=== PATIENT | female | born 1935 | race Caucasian/White ===

== ENCOUNTER 2019-02-15 13:32 | Emergency (ER) | payer MEDICARE ==
--- OUTSIDE RECORDS SUMMARY | 2019-02-15 13:48 | XMS REPORT | Continuity of Care Document ---
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 Medicine Problems Active Problems Provider Date Acquired trigger finger Onset: 04/06/2003 Fracture of femur Onset: Diabetes mellitus Onset: Chronic obstructive lung disease Onset: Hypoxia Onset: Hypertensive disorder Onset: Hyperlipidemia Onset: Urinary tract infectious disease Onset: Closed fracture of shaft of femur Garcia Way MD, FACS Onset: 2014 Other Aftercare Involving Internal Garcia Way MD, FACS Onset: 2014 Fixation Device Anemia Letty Blair DO Onset: 10/29/2018 Malignant neoplasm of lower lobe, 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 Onset: 08/15/2015 infection Urge incontinence of urine Brandie Augustin M.D. Onset: 08/15/2015 Erythematous condition Brandie Augustin M.D. Onset: 06/29/2015 Social History Type Date Description Comments Sex Unknown Tobacco Use Start: Unknown End: Quit 1989 Unknown ETOH Use Rarely consumes alcohol Recreational Drug Use Denies Drug Use Tobacco Use Start: Unknown End: Patient is a former smoker Unknown Smoking Status Reviewed: 01/14/19 Patient is a former smoker Enjoy Exercising Does not enjoy exercising Exercise Type/Frequency Does not exercise Tattoo/Piercing Pierced ears Smoke Alarms Yes Allergies, Adverse Reactions, Alerts Active Allergies Reaction Severity Comments Date Tape rash, itching 10/12/2009 Oxycodone 04/04/2014 Nitrofurantoin 05/18/2015 Metolazone itching 01/30/2017 Percocet 03/24/2018 Inactive Allergies NKDA 08/01/2009 Medications Active Medications SIG Qnty Indications Ordering Date Provider Metolazone take 1 tab (30 30tabs R60.0 Chelita Art, 01/14/2019 2.5mg minutes before MD Tablets torsemide) prn edema or weight gain >2-3 lbs Mucinex Twice a day as 60tabs J44.9 Frederick Rossi, 2018 600mg Tablets needed for cough. ER 12HR Flovent Diskus inhale one puff by 3months Frederick Rossi, 04/01/2018 mouth twice a day 100mcg/Blist Aerosol (rinse mouth after use) Acapella please provide 1 1units J44.9 Frederick Rossi, 03/24/2018 Misc device. diagnosis: copd use three times a day as needed to clear secretions. Take 10 breaths each time. Proair HFA 2 inhalations every 25.5gm Frederick Rossi, 03/01/2017 4 hours as needed 108(90Base) mcg/Act for shortness of Aerosol breath. Unifine Pentips Ruben Use To Inject 4units Thao Monson, 02/18/2017 6mm 100'S 31G 1/4 Insulin Four Times A M.D. 31G Day 04/18 Oxygen Please increase to 6 Frederick Rossi, 01/28/2017 L/min continuous. MD Neo Richard take one puff once 3month J44.9 Frederick Rossi, 10/31/2016 daily. 62.5-25mcg/Inh Aerosol Lancets Freestyle Test Finger Stick 4units Thao Monson, 04/23/2016 100'S 28G Four Times A Day M.D. 28G Freestyle Lite Test test blood sugar 4x 600units Rickie Abarca 04/05/2016 a day E., DO Strips Pravastatin Sodium 1/2 by mouth at 90tabs E78.2 Thao Monson, 03/21/2016 bedtime M.D. 10mg Tablets Pen [place] use to inject 400units Thao Monson, 01/30/2016 31G X 6 insulin 4x/day M.D. mm Misc Lancets Ultra Fine Test fs 4x/day 400units Thao Monson, 03/08/2015 M.D. Misc [facility] High Potency Once Daily Unknown 04/08/2014 Vitamin D 1000Unit Tablets Torsemide 2 po daily LeLisa 20mg Galina, CANE WEIGHER Tablets Sertraline HCL 1 po daily Le, Lisa 25mg Galina, CANE WEIGHER Tablets Klor-Con M20 1 po bid KapSen etienne, 20Meq MD Tablets ER Cephalexin 1 po daily Unknown 250mg Capsules Myrbetriq 1 by mouth every day Unknown 50mg Tablets ER 24HR Lantus Solostar 60 units in am and Unknown sliding scale 100Unit/ML Solution Pen-Inject Tanzeum sliding scale Unknown 30mg Pen Advil 2 tabs po at bedtime Unknown 200mg Tablets prn. Estrace insert one-half Unknown 0.1mg/GM applicatorful Cream vaginally once to twice per week as needed Trospium Chloride take one tablet by Unknown mouth twice a day 20mg Tablets Probiotic 1 capsule po daily Unknown Capsules Novolog Flexpen 16 units three times Unknown a day before meals. 100Unit/ML Solution per FS if FS low Pen-Inject takes 12u Aspir-Low 1 by mouth every day Unknown 81mg Tablets DR Fish Oil 1 po qday Unknown Capsules Multivitamins 1 po qd Unknown Tablets Cranberry Juice 2 tabs twice a day Unknown Extract 1000mg Capsules History Medications Metolazone Take 1 Tablet 30 90tabs R60.0 Tate Reynoso 11/03/2018 - 5mg Minutes Before M.[place], FACC 01/14/2019 Tablets Torsemide Dose Every Other Day Medications Administered in Office Medication SIG Qnty Indications Ordering Provider Date Vitamin B12 Injection 1000 Letty Blair DO 11/13/2017 mcg/Ml Injection Theraputic Or Diagnostic Letty Blair, DO 11/13/2017 Injection Injection Depo-Medrol 20mg Annemarie Plasencia [facility] 01/29/2013 Injection Immunizations Description No Information Available Vital Signs Date Vital Result Comment 01/14/2019 8:12am BP Systolic Sitting Left Arm 111 mmHg BP Diastolic Sitting Left Arm 56 mmHg Heart Rate 99 /min Respiratory Rate 16 /min Height 62 inches 5'2" Weight 210.00 lb BMI (Body Mass Index) 38.4 kg/m2 BSA (Body Surface Area) 1.95 m2 [place] body weight in kilograms 50 kg O2 % BldC Oximetry 96 % nc/4l 12/23/2018 9:12am BP Systolic 118 mmHg BP Diastolic 55 mmHg Body Temperature 98.3 F Heart Rate 107 /min Respiratory Rate 20 /min Weight 219.38 lb O2 % BldC Oximetry 91 % Pain Level 0 Results Test Date Facility Test Result H/L Range Note CBC 12/12/2018 [facility] White Blood 8.2 K/uL Normal 3.1-10.7 1 W/Automated [address] Count Diff [place], [place] [id number] [phone] Red Blood Count 3.43 M/uL Low 3.90-5.40 Hemoglobin 9.3 gm/dL Low 11.6-15.8 Hematocrit 30.3 % Low 36.0-46.1 Mean Cell Volume 88.3 fl Normal 80.9-99.0 Mean Corpuscular HGB 27.1 pg Normal 25.9-32.7 Mean Corpuscular HGB Conc 30.7 g/dL Low 30.8-34.3 Platelet Count 140 K/uL Low 155-360 Red Cell Distri Width SD 60.5 fl High 36-47 Red Cell Distri Width %CV 18.6 % High 11.7-14.4 Mean Platelet Volume 12.0 fl Normal 8.9-12.4 Neut% 70.3 % Normal 40.4-72.8 Lymph % 14.7 % Low 20.0-42.0 [place] % 6.5 % Normal 4.3-13.2 Eo% 7.1 % High 0.0-6.6 Bas% 0.4 % Normal 0.0-1.1 Immature Grans 1.0 % Normal 0.0-5.0 NRBC % 0.0 /100WBC < 10/ 100 WBC Neut# 5.74 K/uL Normal 1.8-7.0 Lymph # 1.20 K/uL Normal 1.0-4.0 [place] # 0.53 K/uL Normal 0.3-0.9 Eos # 0.58 K/uL High 0.0-0.5 Baso # 0.03 K/uL Normal 0.0-0.1 Immature Grans Absolute 0.08 K/uL NRBC # 0.00 K/uL Comprehensive Metabolic 12/12/2018 [facility] Glucose 150 mg/dL High 74-106 Panel [address] [place] [address] [phone] BUN 52 mg/dL High 7-18 Creatinine 1.6 mg/dL High 0.6-1.3 Glom Filtration Rate, Estimate 33 mL/min >60 If 40 mL/min >60 2 BUN/Creat 32.5 ratio Sodium 137 mmol/L Normal 136-145 Potassium 3.3 mmol/L Low 3.5-5.1 Chloride 99 mmol/L Normal 98-107 Carbon Dioxide 34 mmol/L High 21-32 Anion Gap 4 mEq/L Low 8-16 Calcium 9.4 mg/dL Normal 8.5-10.1 Total Protein 7.9 g/dL Normal 6.4-8.2 Albumin 3.0 g/dL Low 3.4-5.0 Globulin 4.9 g/dL High 1.9-4.3 Alb/Glob 0.6 ratio Bilirubin,Total 0.4 mg/dL Normal 0.2-1.0 Sgot/Ast 27 U/L Normal 15-37 SGPT/Alt 24 U/L Normal 12-78 Alkaline Phosphatase 123 U/L High 45-117 Iron-Tibc-%Sat 12/12/2018 [facility] Serum Iron 55 g/dL Normal 50-170 [address] [place] [address] [phone] Total Iron Binding Capacity 357 g/dL Normal 250-450 Transferrin %Saturation 15 % Normal 12-57 Laboratory test 12/12/2018 [facility] Ferritin 142 ng/mL Normal 8-252 finding [address] [place] [address] [phone] Vitamin B12 And 12/12/2018 [facility] Vitamin B12 574 pg/mL Normal 193-986 Folate [address] [place] [address] [phone] Folic Acid > 20.0 ng/mL High 3.1-17.5 Laboratory test 12/12/2018 [facility] Slide Review (SEE NOTE) 3 finding [address] [place] [address] [phone] Reticulocyte 10/29/2018 [facility] Retic 30.3 pg Normal 27.9 4 Count,Automated [address] [facility] Hemoglobin -37. [place] [address] 0 [phone] Retic % 4.7 % High 0.5-1.8 Absolute Retic 170 K/uL High 24-84 Immature Retic Fraction 29.9 % High 2.9-15.5 Laboratory test 10/29/2018 [facility] Vitamin 47.1 30.0-100.0 5 finding [address] [facility] D,25-Hydroxy ng/[place] [address] [phone] LDH 245 U/L Normal 84-246 Sedimentation Rate 67 mm/hr High 2-55 6 Vitamin B12 And 10/29/2018 [facility] Vitamin B12 714 pg/mL Normal 193-986 Folate [address] [place] [address] [phone] Folic Acid > 20.0 ng/mL High 3.1-17.5 Immunoglobulins 10/29/2018 [facility] Immunoglobulin [phone] A/G/M, QN, Ser [address] [facility] G,Quant,Serum mg/dL [place], [place] [id number] [phone] Immunoglobulin A 312 mg/dL 64-422 Immunoglobulin M 35 mg/dL 26-217 7 Laboratory test 10/29/2018 [facility] Ferritin 59 ng/mL Normal 8-252 finding [address] [place] [address] [phone] Iron-Tibc-%Sat 10/29/2018 [facility] Serum Iron 44 g/dL Low 50-170 [address] [place] [address] [phone] Total Iron Binding Capacity 444 g/dL Normal 250-450 Transferrin %Saturation 10 % Low 12-57 Comprehensive Metabolic 10/29/2018 [facility] Glucose 137 mg/dL High 74-[address] [place] [address] [phone] BUN 71 mg/dL High 7-18 Creatinine 1.8 mg/dL High 0.6-1.3 Glom Filtration Rate, Estimate 29 mL/min >60 If 35 mL/min >60 8 BUN/Creat 39.4 ratio Sodium 135 mmol/L Low 136-145 Potassium 3.9 mmol/L Normal 3.5-5.1 Chloride 95 mmol/L Low 98-107 Carbon Dioxide 32 mmol/L Normal 21-32 Anion Gap 8 mEq/L Normal 8-16 Calcium 9.5 mg/dL Normal 8.5-10.1 Total Protein 8.4 g/dL High 6.4-8.2 Albumin 3.3 g/dL Low 3.4-5.0 Globulin 5.1 g/dL High 1.9-4.3 Alb/Glob 0.6 ratio Bilirubin,Total 0.4 mg/dL Normal 0.2-1.0 Sgot/Ast 26 U/L Normal 15-37 SGPT/Alt 32 U/L Normal 12-78 Alkaline Phosphatase 149 U/L High 45-117 CBC W/Automated 10/29/2018 [facility] White Blood 11.7 K/uL High 3.1-10.[address] [place] [address] [phone] Red Blood Count 3.65 M/uL Low 3.90-5.40 Hemoglobin 9.4 gm/dL Low 11.6-15.8 Hematocrit 32.4 % Low 36.0-46.1 Mean Cell Volume 88.8 fl Normal 80.9-99.0 Mean Corpuscular HGB 25.8 pg Low 25.9-32.7 Mean Corpuscular HGB Conc 29.0 g/dL Low 30.8-34.3 Platelet Count 172 K/uL Normal 155-360 Red Cell Distri Width SD 63.0 fl High 36-47 Red Cell Distri Width %CV 19.8 % High 11.7-14.4 Mean Platelet Volume 11.6 fl Normal 8.9-12.4 Neut% 75.8 % High 40.4-72.8 Lymph % 12.0 % Low 20.0-42.0 [place] % 6.6 % Normal 4.3-13.2 Eo% 4.2 % Normal 0.0-6.6 Bas% 0.3 % Normal 0.0-1.1 Immature Grans 1.1 % Normal 0.0-5.0 NRBC % 0.0 /100WBC < 10/ 100 WBC Neut# 8.84 K/uL High 1.8-7.0 Lymph # 1.40 K/uL Normal 1.0-4.0 [place] # 0.77 K/uL Normal 0.3-0.9 Eos # 0.49 K/uL Normal 0.0-0.5 Baso # 0.04 K/uL Normal 0.0-0.1 Immature Grans Absolute 0.13 K/uL NRBC # 0.00 K/uL Comprehensive Metabolic 10/24/2018 [facility] Glucose 130 mg/dL High 74-106 [address] [place] [address] [phone] BUN 92 mg/dL High 7-18 Creatinine 2.4 mg/dL High 0.6-1.3 Glom Filtration Rate, Estimate 21 mL/min >60 If 25 mL/min >60 10 BUN/Creat 38.3 ratio Sodium 135 mmol/L Low 136-145 Potassium 4.3 mmol/L 3.5-5.1 Chloride 93 mmol/L Low 98-107 Carbon Dioxide 35 mmol/L High 21-32 Anion Gap 7 mEq/L Low 8-16 Calcium 9.7 mg/dL Normal 8.5-10.1 Total Protein 8.1 g/dL Normal 6.4-8.2 Albumin 3.1 g/dL Low 3.4-5.0 Globulin 5.0 g/dL High 1.9-4.3 Alb/Glob 0.6 ratio Bilirubin,Total 0.4 mg/dL Normal 0.2-1.0 Sgot/Ast 32 U/L Normal 15-37 SGPT/Alt 40 U/L Normal 12-78 Alkaline Phosphatase 168 U/L High 45-117 CBS W/Automated 10/22/2018 [facility] White Blood 12.1 K/uL High 3.1-10.7 [address] [place] [address] [phone] Red Blood Count 3.51 M/uL Low 3.90-5.40 Hemoglobin 8.8 gm/dL Low 11.6-15.8 Hematocrit 29.9 % Low 36.0-46.1 Mean Cell Volume 85.2 fl Normal 80.9-99.0 Mean Corpuscular HGB 25.1 pg Low 25.9-32.7 Mean Corpuscular HGB Conc 29.4 g/dL Low 30.8-34.3 Platelet Count 206 K/uL Normal 155-360 Red Cell Distri Width SD 61.9 fl High 36-47 Red Cell Distri Width %CV 19.8 % High 11.7-14.4 Mean Platelet Volume 11.3 fl Normal 8.9-12.4 Neut% 76.6 % High 40.4-72.8 Lymph % 10.0 % Low 20.0-42.0 [place] % 6.0 % Normal 4.3-13.2 Eo% 5.0 % Normal 0.0-6.6 Bas% 0.2 % Normal 0.0-1.1 Immature Grans 2.2 % Normal 0.0-5.0 NRBC % 0.2 /100WBC < 10/ 100 WBC Neut# 9.23 K/uL High 1.8-7.0 Lymph # 1.20 K/uL Normal 1.0-4.0 [place] # 0.72 K/uL Normal 0.3-0.9 Eos # 0.60 K/uL High 0.0-0.5 Baso # 0.03 K/uL Normal 0.0-0.1 Immature Grans Absolute 0.27 K/uL NRBC # 0.02 K/uL Comprehensive Metabolic 10/22/2018 [facility] Glucose 203 mg/dL High 74-106 Panel [address] [place] [address] [phone] BUN 85 mg/dL High 7-18 Creatinine 2.0 mg/dL High 0.6-1.3 Glom Filtration Rate, Estimate 25 mL/min >60 If 31 mL/min >60 12 BUN/Creat 42.5 ratio Sodium 129 mmol/L Low 136-145 Potassium 2.6 mmol/L Critical low 3.5-5.1 Chloride 82 mmol/L Critical low 98-107 Carbon Dioxide 38 mmol/L High 21-32 Anion Gap 9 mEq/L Normal 8-16 Calcium 9.4 mg/dL Normal 8.5-10.1 Total Protein 8.3 g/dL High 6.4-8.2 Albumin 3.1 g/dL Low 3.4-5.0 Globulin 5.2 g/dL High 1.9-4.3 Alb/Glob 0.6 ratio Bilirubin,Total 0.4 mg/dL Normal 0.2-1.0 Sgot/Ast 32 U/L Normal 15-37 SGPT/Alt 42 U/L Normal 12-78 Alkaline Phosphatase 170 U/L High 45-117 Iron-Tibc-%Sat 10/22/2018 [facility] Serum Iron 77 g/dL Normal 50-170 [address] [place] [address] [phone] Total Iron Binding Capacity 450 g/dL Normal 250-450 Transferrin %Saturation 17 % Normal 12-57 Laboratory test 10/22/2018 [facility] Ferritin 99 ng/mL Normal 8-252 13 finding [address] [place] [address] [phone] Vitamin B12 And 10/22/2018 [facility] Vitamin B12 717 pg/mL Normal 193-986 Folate [address] [place] [address] [phone] Folic Acid > 20.0 ng/mL High 3.1-17.5 Laboratory test 10/22/2018 [facility] Vitamin 43.8 30.0-100.0 [address] D,25-Hydroxy ng/[place] [address] [phone] 1 C34.32 C34.31 2 Note: Persistent reduction for 3 months or more in an eGFR <60 mL/min/1.73 m2 defines CKD. Patients with eGFR values >/=60 mL/min/1.73 m2 may also have CKD if evidence of persistent proteinuria is present. The original MDRD equation for estimated GFR is not valid for patients less than 18 years of age. Additional information may be found at www.kdoqi.org. 3 Instrument flagged sample for slide review. Less than 10% Bands seen, no other immature WBC's seen. RBC morphology essentially normal. Platelet estimate = NORMAL, FEW FIBRIN STRANDS SEEN ON SLIDE 4 C34.32 J44.9 5 Vitamin D deficiency has been defined by the [place] [employer] and an Endocrine Society practice guideline as a level of serum 25-OH vitamin D less than 20 ng/mL (1,2). The Endocrine Society went on to further define vitamin D insufficiency as a level between 21 and 29 ng/mL (2). 1. IOM ([place] [employer]). 2010. Dietary reference intakes for calcium and D. [place]: The National Academies Press. 2. Martin MF, Sara NC, Aaron STREET, et al. Evaluation, treatment, and prevention of vitamin D deficiency: an Endocrine Society clinical practice guideline. JCEM. 2010; 96(0):1911-30. Performed at: [facility] [id number] Engine Lathe Set Up Operator Tool: Eryn Balderas MD, Phone: [phone] 6 This result was obtained with an ESR method that is not based on the standard Westergren Method. When comparing results obtained from the traditional Westergren ESR and this method it is important to refer to the reference range for each method. Method: Capillary Photometry 7 Performed at: - [facility] [address] [id number] Engine Lathe Set Up Operator Tool: Eryn Balderas MD, Phone: [phone] Note: Persistent reduction for 3 months or more in an eGFR <60 mL/min/1.73 m2 defines CKD. Patients with eGFR values >/=60 mL/min/1.73 m2 may also have CKD if evidence of persistent proteinuria is present. The original MDRD equation for estimated GFR is not valid for patients less than 18 years of age. Additional information may be found at www.kdoqi.org. 9 C34.32 10 Note: Persistent reduction for 3 months or more in an eGFR <60 mL/min/1.73 m2 defines CKD. Patients with eGFR values >/=60 mL/min/1.73 m2 may also have CKD if evidence of persistent proteinuria is present. The original MDRD equation for estimated GFR is not valid for patients less than 18 years of age. Additional information may be found at www.kdoqi.org. 11 C34.32 J44.9 12 Note: Persistent reduction for 3 months or more in an eGFR <60 mL/min/1.73 m2 defines CKD. Patients with eGFR values >/=60 mL/min/1.73 m2 may also have CKD if evidence of persistent proteinuria is present. The original MDRD equation for estimated GFR is not valid for patients less than 18 years of age. Additional information may be found at www.kdoqi.org. 13 CHECKED CALLED RUPA Kaye WITH POTASSIUM AT 1201 10/22/18 14 Vitamin D deficiency has been defined by the [place] [employer] and an Endocrine Society practice guideline as a level of serum 25-OH vitamin D less than 20 ng/mL (1,2). The Endocrine Society went on to further define vitamin D insufficiency as a level between 21 and 29 ng/mL (2). 1. IOM ([place] [employer]). 2010. Dietary reference intakes for calcium and D. [place]: The National Academies Press. 2. Martin MF, Sara DALTON, Aaron ST[address], et al. Evaluation, treatment, and prevention of vitamin D deficiency: an Endocrine Society clinical practice guideline. JCEM. 2010; 96(7):1911-30. Performed at: RN - [facility] [address] [id number] Engine Lathe Set Up Operator Tool: Eryn Balderas MD, Phone: [phone] Procedures Date Code Description Status 01/14/2019 39918 EKG-Tracing And Report Completed 09/04/2018 47747 Echocardiogram Complete Completed 12/05/2010 [id number] Mammogram Completed 11/13/2010 461611282 Bone Mineral Density Test Completed Medical Devices Description No Information Available Encounters Type Date Location Provider Dx Diagnosis Office Visit 01/14/2019 Cardiology Office Ann Tarango R60.0 Localized edema 8:00a B., PA R94.31 Abnormal electrocardiogram [ECG] [EKG] E87.6 Hypokalemia R07.9 Chest pain, unspecified Office Visit 12/23/2018 11:30a Infusion Center Niecy Pacheco E61.1 Iron deficiency B., CANE WEIGHER D64.9 Anemia, unspecified 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, left bronchus or lung Office Visit 10/29/2018 12:30p Oncology Office Rossy C34.32 Malignant Letty, DO neoplasm of lower lobe, left bronchus or lung D64.9 Anemia, unspecified Office Visit 2018 3:30p Pulmonology Frederick Rossi MD J44.9 Chronic obstructive pulmonary disease, unspecified R09.02 Hypoxemia Z99.81 Dependence on supplemental oxygen Assessments Date Code Description Provider 01/14/2019 R60.0 Localized edema Ann Tarango, PA 01/14/2019 R94.31 Abnormal electrocardiogram [ECG] [EKG] Ann Tarango , PA 01/14/2019 E87.6 Hypokalemia Ann Tarango, PA 01/14/2019 R07.9 Chest pain, unspecified Ann Tarango, PA 12/23/2018 E61.1 Iron deficiency Niecy Pacheco, CANE WEIGHER 12/23/2018 D64.9 Anemia, unspecified Niecy Pacheco, CANE WEIGHER 12/23/2018 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, left Niecy Pacheco , CANE WEIGHER bronchus or lung 10/29/2018 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, left Boufal, Letty, DO bronchus or lung 10/29/2018 D64.9 Anemia, unspecified Boufal, Letty, DO 10/24/2018 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, left Boufal, Letty, DO bronchus or lung 10/24/2018 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, left Oncology Nurse bronchus or lung 10/22/2018 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, left Boufal, Letty, DO bronchus or lung 10/22/2018 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, left Oncology Nurse bronchus or lung 10/22/2018 J44.9 Chronic obstructive pulmonary disease, Boufal, Letty, DO unspecified 10/22/2018 J44.9 Chronic obstructive pulmonary disease, Oncology Nurse unspecified 10/07/2018 J96.01 Acute respiratory failure with hypoxia Ananth Guy FNP 10/07/2018 I50.33 Acute on chronic diastolic Ananth Guy FNP (congestive) heart failure 10/07/2018 E87.5 Hyperkalemia Ananth Guy FNP 10/07/2018 N18.6 End stage renal disease Ananth Guy FNP 10/06/2018 J96.01 Acute respiratory failure with hypoxia Ananth Guy FNP 10/06/2018 I50.33 Acute on chronic diastolic Ananth Guy, [employer] (congestive) heart failure 10/06/2018 E87.5 Hyperkalemia Ananth Guy, RAILROAD INSPECTOR 10/06/2018 N18.6 End stage renal disease Ananth Guy, [employer]ILROAD INSPECTOR 10/05/2018 J96.01 Acute respiratory failure with hypoxia Vikas Amos M.D. 10/05/2018 I50.33 Acute on chronic diastolic Vikas Amos M.D. (congestive) heart failure 10/05/2018 E87.5 Hyperkalemia Vikas Amos M.D. 10/05/2018 N18.6 End stage renal disease Vikas Amos M.D. 10/03/2018 J96.01 Acute respiratory failure with hypoxia Gregor Wheeler MD 10/03/2018 I50.33 Acute on chronic diastolic Gregor Wheeler MD (congestive) heart failure 10/03/2018 E87.5 Hyperkalemia Gregor Wheeler MD 10/03/2018 N18.6 End stage renal disease Gregor Wheeler MD 10/02/2018 I50.33 Acute on chronic diastolic Tate Reynoso M.D., (congestive) heart failure FAC 10/02/2018 J96.01 Acute respiratory failure with hypoxia Gregor Wheeler MD 10/02/2018 J96.01 Acute respiratory failure with hypoxia Tate Reynoso M.D., [facility] 10/02/2018 I50.33 Acute on chronic diastolic Gregor Wheeler MD (congestive) heart failure 10/02/2018 E87.5 Hyperkalemia Tate Reynoso M.D., [facility] 10/02/2018 E87.5 Hyperkalemia Gregor Wheeler MD 10/02/2018 I73.9 Peripheral vascular disease, Tate Reynoso M.D., unspecified [facility] 10/02/2018 N18.6 End stage renal disease Gregor Wheeler MD 10/02/2018 R60.0 Localized edema Tate Reynoso M.D., [facility] 10/02/2018 I95.89 Other hypotension Tate Reynoso M.D., [facility] 10/01/2018 J96.01 Acute respiratory failure with hypoxia Gregor Wheeler MD 10/01/2018 I50.33 Acute on chronic diastolic Gregor Wheeler MD (congestive) heart failure 10/01/2018 E87.5 Hyperkalemia Gregor Wheeler MD 10/01/2018 N18.6 End stage renal disease Gregor Wheeler MD 2018 J44.9 Chronic obstructive pulmonary disease, Frederick Rossi MD unspecified 2018 R09.02 Hypoxemia Frederick Rossi MD 2018 Z99.81 Dependence on supplemental oxygen Frederick Rossi MD 09/04/2018 I50.33 Acute on chronic diastolic Chelita Art MD (congestive) heart failure 09/04/2018 J96.01 Acute respiratory failure with hypoxia Shyla Garvin NP 09/04/2018 R00.1 Bradycardia, unspecified Chelita Art MD 09/04/2018 I50.9 Heart failure, unspecified Shyla Garvin NP 09/04/2018 I45.10 Unspecified right bundle-branch block Chelita Art MD 09/04/2018 N17.9 Acute kidney failure, unspecified Shyla Garvin NP 09/04/2018 J96.01 Acute respiratory failure with hypoxia Chelita Art MD 09/04/2018 E87.5 Hyperkalemia Shyla Garvin NP Plan of Treatment Future Appointment(s):02/18/2019 8:00 am - Ann Tarango, PA at Cardiology Eqhofq6502/03/2019 1:30 pm - Niecy Pacheco CANE WEIGHER at Infusion Svtits5301/27/2019 9:00 am - Oncology Nurse at Oncology Szjojp6203/26/2019 9:20 am - Joanne Garzon PA at Gghdiuoizej57/02/2019 - Ann Tarango, PAR60.0 Localized edemaNew Medication:Metolazone 2.5 mg - take 1 tab (30 minutes before torsemide) prn edema or weight gain >2-3 lbsNew Labs:Basic Metabolic Panel, Ordered: 01/14/19Magnesium, Ordered: 01/14/19Comments:Will change her metolazone to PRN edema or weight gain >2-3 lbs. She will have labs next week as we may need to augment the present potassium regimen.R94.31 Abnormal electrocardiogram [ECG] [EKG]Comments:Will stop metolazone. Repeat labs next week. Please avoid QT prolonging medications (particularly abx).E87.6 HypokalemiaComments:As above.R07.9 Chest pain, unspecifiedComments:Monitor. No changes.AllFollow up:1 month Labs in 1 week Functional Status Description No Information Available Mental Status Description No Information Available Referrals Description No Information Available
--- OUTSIDE RECORDS SUMMARY | 2019-02-15 13:48 | XMS REPORT | Continuity of Care Document ---
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 Medicine Problems Active Problems Provider Date Acquired trigger finger Onset: 04/06/2003 Fracture of femur Onset: Diabetes mellitus Onset: Chronic obstructive lung disease Onset: Hypoxia Onset: Hypertensive disorder Onset: Hyperlipidemia Onset: Urinary tract infectious disease Onset: Closed fracture of shaft of femur Garcia Way MD, FACS Onset: 2014 Other Aftercare Involving Internal Garcia Way MD, FACS Onset: 2014 Fixation Device Anemia Letty Balir DO Onset: 10/29/2018 Malignant neoplasm of lower [...] a former smoker Unknown Smoking Status Reviewed: 10/29/18 Patient is a former smoker Enjoy Exercising Does not enjoy exercising Exercise Type/Frequency Does not exercise Tattoo/Piercing Pierced ears Smoke Alarms Yes Allergies, Adverse Reactions, Alerts Active Allergies Reaction Severity Comments Date Tape rash, itching 10/12/2009 Oxycodone 04/04/2014 Nitrofurantoin 05/18/2015 Metolazone itching 01/30/2017 Percocet 03/24/2018 Inactive Allergies NKDA 08/01/2009 Medications Active Medications SIG Qnty Indications Ordering Date Provider Metolazone Take 1 Tablet 30 90tabs Magdyendanette, 11/03/2018 5mg Minutes Before Tate M., Tablets Torsemide Dose Every M.D., FACC Other Day Mucinex Twice a day as 60tabs J44.9 Frederick Rossi, 2018 600mg Tablets needed for cough. ER 12HR Levofloxacin 1 by mouth every day 5tabs Frederick Rossi, 05/27/2018 750mg for 7 days. Tablets Flovent Diskus inhale one puff by 3months Frederick Rossi, 04/01/2018 mouth twice a day 100mcg/Blist Aerosol (rinse mouth after use) Acapella please provide 1 1units J44.9 Frederick Rossi, 03/24/2018 [facility] device. diagnosis: copd use three times a day as needed to clear secretions. Take 10 breaths each time. Proair HFA 2 inhalations every 25.5gm Frederick Rossi, 03/01/2017 4 hours as needed 108(90Base) mcg/Act for shortness of Aerosol breath. Unifine Pentips Ruben Use To Inject 4units Thao Monson, 02/18/2017 6mm 100'S 31G 04/18 Insulin Four Times A M.D. 31G Day 04/18 Oxygen Please increase to 6 Frederick Rossi, 01/28/2017 L/min continuous. MD Larson Ellipta take one puff once 3month J44.9 Frederick Rossi, 10/31/2016 daily. 62.5-25mcg/Inh Aerosol Lancets Freestyle Test Finger Stick 4units Thao Monson, 04/23/2016 100'S 28G Four Times A Day M.D. 28G Freestyle Lite Test test blood sugar 4x 600units Rickie Abarca 04/05/2016 a day E., DO Strips Pravastatin Sodium 1/2 by mouth at 90tabs E78.2 Jose MLaney caraballori, 03/21/2016 bedtime M.D. 10mg Tablets Pen Warren use to inject 400units Laney Monsonri, 01/30/2016 31G X 6 insulin 4x/day M.D. mm Misc Lancets Ultra Fine Test fs 4x/day 400units Thao Monson, 03/08/2015 M.D. Misc [facility] High Potency Once Daily Unknown 04/08/2014 Vitamin D 1000Unit Tablets Cranberry Juice 2 tabs twice a day Unknown Extract 1000mg Capsules Multivitamins 1 po qd Unknown Tablets Fish Oil 1 po qday Unknown Capsules Aspir-Low 1 by mouth every day Unknown 81mg Tablets DR Novobowen Flexpen 16 units three times Unknown a day before meals. 100Unit/ML Solution per FS if FS low Pen-Inject takes 12u Probiotic 1 capsule po daily Unknown Capsules Trospium Chloride take one tablet by Unknown mouth twice a day 20mg Tablets Estrace insert one-half Unknown 0.1mg/GM applicatorful Cream vaginally once to twice per week as needed Advil 2 tabs po at bedtime Unknown 200mg Tablets prn. Tanzeum sliding scale Unknown 30mg Pen Lantus Solostar 60 units Am, 36 Unknown units PM 100Unit/ML Solution Pen-Inject Myrbetriq 1 by mouth every day Unknown 50mg Tablets ER 24HR Cephalexin 1 po daily Unknown 250mg Capsules Medications Administered in Office Medication SIG Qnty Indications Ordering Provider Date Vitamin B12 Injection 1000 Letty Blair, 11/13/2017 mcg/Ml Injection Theraputic Or Diagnostic Letty Blair, DO 11/13/2017 Injection Injection Depo-Medrol 20mg Annemarie Plasencia [facility] 01/29/2013 Injection Immunizations Description No Information Available Vital Signs Date Vital Result Comment 12/23/2018 9:12am BP Systolic 118 mmHg BP Diastolic 55 mmHg Body Temperature 98.3 F Heart Rate 107 /min Respiratory Rate 20 /min Weight 219.38 lb O2 % BldC Oximetry 91 % Pain Level 0 10/29/2018 12:56pm BP Systolic 136 mmHg BP Diastolic 62 mmHg Body Temperature 98.0 F Heart Rate 103 /min Height 62 inches 5'2" Weight 227.38 lb BMI (Body Mass Index) 41.6 kg/m2 BSA (Body Surface Area) 2.02 m2 Thoreau body weight in kilograms 50 kg O2 % BldC Oximetry 93 % 4 oxygen tank Pain Level 0 Results Test Date Facility Test Result H/L Range Note CBC 12/12/2018 [facility] White Blood 8.2 K/uL Normal 3.1-10.7 1 W/Automated [address] [place] [address] [phone] Red Blood Count 3.43 M/uL Low 3.90-5.40 [...] 40.4-72.8 Lymph % 14.7 % Low 20.0-42.0 [place] % 6.5 % Normal 4.3-13.2 Eo% 7.1 % High 0.0-6.6 Bas% 0.4 % Normal 0.0-1.1 Immature Grans 1.0 % Normal 0.0-5.0 NRBC % 0.0 /100WBC < 10/ 100 WBC Neut# 5.74 K/uL Normal 1.8-7.0 Lymph # 1.20 K/uL Normal 1.0-4.0 [place] # 0.53 K/uL Normal 0.3-0.9 Eos # 0.58 K/uL High 0.0-0.5 Baso # 0.03 K/uL Normal 0.0-0.1 Immature Grans Absolute 0.08 K/uL NRBC # 0.00 K/uL Comprehensive Metabolic 12/12/2018 [facility] Glucose 150 mg/dL High 74-106 Panel [address], [place] [id number] [phone] BUN 52 mg/dL High 7-18 Creatinine 1.6 [...] Phosphatase 123 U/L High 45-117 Iron-Tibc-%Sat 12/12/2018 [facility] Serum Iron 55 g/dL Normal 50-170 [address], [place] [id number] [phone] Total Iron Binding Capacity 357 g/dL Normal 250-450 Transferrin %Saturation 15 % Normal 12-57 Laboratory test 12/12/2018 [facility] Ferritin 142 ng/mL Normal 8-252 finding [address], [place] [id number] [phone] Vitamin B12 And 12/12/2018 [facility] Vitamin B12 574 pg/mL Normal 193-986 Folate [address], [place] [address] [phone] Folic Acid > 20.0 ng/mL High 3.1-17.5 Laboratory test 12/12/2018 [facility] Slide Review (SEE NOTE) 3 finding [address] [place] [address] [phone] Reticulocyte 10/29/2018 [facility] Retic 30.3 pg Normal 27.9 4 Count,Automated [address] [facility] Hemoglobin -37. [place] [address] 0 [phone] Retic % 4.7 % High 0.5-1.8 Absolute Retic 170 K/uL High 24-84 Immature Retic Fraction 29.9 % High 2.9-15.5 Laboratory test 10/29/2018 [facility] Vitamin 47.1 30.0-100.0 5 finding [address] [facility] D,25-Hydroxy ng/[place] [address] [phone] LDH 245 U/L Normal 84-246 Sedimentation Rate 67 mm/hr High 2-55 6 Vitamin B12 And 10/29/2018 [facility] Vitamin B12 714 pg/mL Normal 193-986 Folate [address] [place] [address] [phone] Folic Acid > 20.0 ng/mL High 3.1-17.5 Immunoglobulins 10/29/2018 [facility] Immunoglobulin [phone] A/G/M, QN, Ser [address] [facility] G,Quant,Serum mg/[place] [address] [phone] Immunoglobulin A 312 mg/dL 64-422 Immunoglobulin M 35 mg/dL 26-217 7 Laboratory test 10/29/2018 [facility] Ferritin 59 ng/mL Normal 8-252 finding [address] [place] [address] [phone] Iron-Tibc-%Sat 10/29/2018 [facility] Serum Iron 44 g/dL Low 50-170 [address] [place] [address] [phone] Total Iron Binding Capacity 444 g/dL Normal 250-450 Transferrin %Saturation 10 % Low 12-57 Comprehensive Metabolic 10/29/2018 [facility] Glucose 137 mg/dL High 74-106 Panel [address] [place] [address] [phone] BUN 71 mg/dL High 7-18 Creatinine 1.8 [...] 149 U/L High 45-117 CBC W/Automated 10/29/2018 [facility] White Blood 11.7 K/uL High 3.1-10.[address] Count [place], [place] [id number] [phone] Red Blood Count 3.65 M/uL Low 3.90-5.40 [...] 40.4-72.8 Lymph % 12.0 % Low 20.0-42.0 [place] % 6.6 % Normal 4.3-13.2 Eo% 4.2 % Normal 0.0-6.6 Bas% 0.3 % Normal 0.0-1.1 Immature Grans 1.1 % Normal 0.0-5.0 NRBC % 0.0 /100WBC < 10/ 100 WBC Neut# 8.84 K/uL High 1.8-7.0 Lymph # 1.40 K/uL Normal 1.0-4.0 [place] # 0.77 K/uL Normal 0.3-0.9 Eos # 0.49 K/uL Normal 0.0-0.5 Baso # 0.04 K/uL Normal 0.0-0.1 Immature Grans Absolute 0.13 K/uL NRBC # 0.00 K/uL Comprehensive Metabolic 10/24/2018 [facility] Glucose 130 mg/dL High 74-106 [address] [place] [address] [phone] BUN 92 mg/dL High 7-18 Creatinine 2.4 [...] 168 U/L High 45-117 CBS W/Automated 10/22/2018 [facility] White Blood 12.1 K/uL High 3.1-10.7 [address] [place] [address] [phone] Red Blood Count 3.51 M/uL Low 3.90-5.40 [...] 40.4-72.8 Lymph % 10.0 % Low 20.0-42.0 [place] % 6.0 % Normal 4.3-13.2 Eo% 5.0 % Normal 0.0-6.6 Bas% 0.2 % Normal 0.0-1.1 Immature Grans 2.2 % Normal 0.0-5.0 NRBC % 0.2 /100WBC < 10/ 100 WBC Neut# 9.23 K/uL High 1.8-7.0 Lymph # 1.20 K/uL Normal 1.0-4.0 [place] # 0.72 K/uL Normal 0.3-0.9 Eos # 0.60 K/uL High 0.0-0.5 Baso # 0.03 K/uL Normal 0.0-0.1 Immature Grans Absolute 0.27 K/uL NRBC # 0.02 K/uL Comprehensive Metabolic 10/22/2018 [facility] Glucose 203 mg/dL High 74-106 Panel [address] [place] [address] [phone] BUN 85 mg/dL High 7-18 Creatinine 2.0 [...] Phosphatase 170 U/L High 45-117 Iron-Tibc-%Sat 10/22/2018 [facility] Serum Iron 77 g/dL Normal 50-170 [address] [place] [address] [phone] Total Iron Binding Capacity 450 g/dL Normal 250-450 Transferrin %Saturation 17 % Normal 12-57 Laboratory test 10/22/2018 [facility] Ferritin 99 ng/mL Normal 8-252 13 finding [address] [place] [address] [phone] Vitamin B12 And 10/22/2018 [facility] Vitamin B12 717 pg/mL Normal 193-986 Folate [address] [place], [place] [address] [phone] Folic Acid > 20.0 ng/mL High 3.1-17.5 Laboratory test 10/22/2018 [facility] Vitamin 43.8 30.0-100.0 14 finding [address] D,25-Hydroxy ng/[place] [address] [phone] 1 C34.32 C34.31 2 Note: Persistent reduction [...] D deficiency has been defined by the [employer] and an Endocrine Society practice guideline as a level of serum 25-OH vitamin D less than 20 ng/mL (1,2). The Endocrine Society went on to further define vitamin D insufficiency as a level between 21 and 29 ng/mL (2). 1. IOM ([employer]). 2010. Dietary reference intakes for calcium and D. [place]: The National Academies Press. 2. Martin MF, Sara DALTON, Aaron STREET, et al. Evaluation, treatment, and prevention of vitamin D deficiency: an Endocrine Society clinical practice guideline. JCEM. 2010; 96(7):1911-30. Performed at: - [facility] [address] [id number] Precision Devices Inspector/Tester: Eryn Balderas MD, Phone: [phone] This result was obtained with an ESR method that is not based on the standard Westergren Method. When comparing results obtained from the traditional Westergren ESR and this method it is important to refer to the reference range for each method. Method: Capillary Photometry 7 Performed at: - [facility] [address] [id number] Precision Devices Inspector/Tester: Eryn Balderas MD, Phone: [phone] Note: Persistent reduction for 3 months [...] found at www.kdoqi.org. 13 CHECKED CALLED RUPA Restrepo WITH POTASSIUM AT 1201 10/22/18 14 Vitamin D deficiency has been defined by the [employer] and an Endocrine Society practice guideline as a level of serum 25-OH vitamin D less than 20 ng/mL (1,2). The Endocrine Society went on to further define vitamin D insufficiency as a level between 21 and 29 ng/mL (2). 1. IOM ([employer]). 2010. Dietary reference intakes for calcium and D. [place]: The National Academies Press. 2. Martin MF, Sara [place], Aaron STREET, et al. Evaluation, treatment, and prevention of vitamin D deficiency: an Endocrine Society clinical practice guideline. JCEM. 2010; 96(7):1911-30. 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, left bronchus or lung D64.9 Anemia, unspecified Office Visit 2018 3:30p Pulmonology Frederick Rossi MD J44.9 Chronic obstructive pulmonary disease, unspecified R09.02 Hypoxemia Z99.81 Dependence on supplemental oxygen Assessments Date Code Description Provider 12/23/2018 E61.1 Iron deficiency Niecy Pacheco, PHARMACEUTICAL BOTANIST 12/23/2018 D64.9 Anemia, unspecified Niecy Pacheco, PHARMACEUTICAL BOTANIST 12/23/2018 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, Niecy Pacheco, PHARMACEUTICAL BOTANIST left bronchus or lung 10/29/2018 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, Letty Blair, DO left bronchus or lung 10/29/2018 D64.9 Anemia, unspecified Letty Blair, DO 10/24/2018 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, Letty Blair, DO left bronchus or lung 10/24/2018 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, Oncology Nurse left bronchus or lung 10/22/2018 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, Rosemary Blairaret, DO left bronchus or lung 10/22/2018 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, Oncology Nurse left bronchus or lung 10/22/2018 J44.9 Chronic obstructive pulmonary BoalycealArit, DO disease, unspecified 10/22/2018 J44.9 Chronic obstructive pulmonary Oncology Nurse disease, unspecified 10/07/2018 J96.01 Acute respiratory failure with Cadet, Ananth, CURATOR OF EDUCATION hypoxia 10/07/2018 I50.33 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, Ananth, CURATOR OF EDUCATION (congestive) heart failure 10/07/2018 E87.5 Hyperkalemia Cadet, Ananth, CURATOR OF EDUCATION 10/07/2018 N18.6 End stage renal disease Cadet, Ananth, CURATOR OF EDUCATION 10/06/2018 J96.01 Acute respiratory failure with Cadet, Ananth, CURATOR OF EDUCATION hypoxia 10/06/2018 I50.33 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, Ananth, CURATOR OF EDUCATION (congestive) heart failure 10/06/2018 E87.5 Hyperkalemia Cadet, Ananth, CURATOR OF EDUCATION 10/06/2018 N18.6 End stage renal disease Cadet, Ananth, CURATOR OF EDUCATION 10/05/2018 J96.01 Acute respiratory failure with Vikas Amos M.D. hypoxia 10/05/2018 I50.33 Acute on chronic diastolic Vikas Amos M.D. (congestive) heart failure 10/05/2018 E87.5 HyperkaleVikas Arizmendi M.D. 10/05/2018 N18.6 End stage renal disease Vikas Amos M.D. 10/03/2018 J96.01 Acute respiratory failure with Gregor Wheeler MD hypoxia 10/03/2018 I50.33 Acute on chronic diastolic Gregor Wheeler MD (congestive) heart failure 10/03/2018 E87.5 Hyperkalemia Gregor Wheeler MD 10/03/2018 N18.6 End stage renal disease Gregor Wheeler MD 10/02/2018 I50.33 Acute on chronic diastolic Tate Reynoso M.D., [facility] (congestive) heart failure 10/02/2018 J96.01 Acute respiratory failure with Gregor Wheeler MD hypoxia 10/02/2018 J96.01 Acute respiratory failure with Tate Reynoso M.D., [facility] hypoxia 10/02/2018 I50.33 Acute on chronic diastolic Gregor Wheeler MD (congestive) heart failure 10/02/2018 E87.5 Hyperkalemia Tate Reynoso M.D., [facility] 10/02/2018 E87.5 Hyperkalemia Gregor Wheeler MD 10/02/2018 I73.9 Peripheral vascular disease, Tate Reynoso M.D., [facility] unspecified 10/02/2018 N18.6 End stage renal disease Gregor Wheeler MD 10/02/2018 R60.0 Localized edema Tate Reynoso M.D., [facility] 10/02/2018 I95.89 Other hypotension Tate Reynoso M.D., [facility] 10/01/2018 J96.01 Acute respiratory failure with Gregor Wheeler MD hypoxia 10/01/2018 I50.33 Acute on chronic diastolic Gregor Wheeler MD (congestive) heart failure 10/01/2018 E87.5 Hyperkalemia Gregor Wheeler MD 10/01/2018 N18.6 End stage renal disease Gregor Wheeler MD 2018 J44.9 Chronic obstructive pulmonary Frederick Rossi MD disease, unspecified 2018 R09.02 Hypoxemia Frederick Rossi MD 2018 Z99.81 Dependence on supplemental oxygen Frederick Rossi MD 09/04/2018 I50.33 Acute on chronic diastolic Chelita Art MD (congestive) heart failure 09/04/2018 J96.01 Acute respiratory failure with Shyla Garvin NP hypoxia 09/04/2018 R00.1 Bradycardia, unspecified Chelita Art MD 09/04/2018 I50.9 Heart failure, unspecified Shyla Garvin NP 09/04/2018 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 Continue to monitor.Follow up:6 weeks with labs sxoroY44.9 Anemia, tbggaljjhcnM20.32 Malignant neoplasm of lower lobe, left bronchus or lungComments:On the CAT scan obtained in July 2018 there is 9 mm spiculated nodule(RUL) that appeared to be slightly increased in size. Dr. Tipton following. Pt states she is scheduled wit Dr. Tipton next month. Functional Status Description No Information Available Mental Status Description No Information Available Referrals Description No Information Available
--- OUTSIDE RECORDS SUMMARY | 2019-02-15 13:48 | XMS REPORT | Continuity of Care Document ---
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 Medicine Problems Active Problems Provider Date Acquired [...] a former smoker Unknown Smoking Status Reviewed: 02/04/19 Patient is a former smoker Enjoy Exercising Does not enjoy exercising Exercise Type/Frequency Does not exercise Tattoo/Piercing Pierced ears Smoke Alarms Yes Allergies, Adverse Reactions, Alerts Active Allergies Reaction Severity Comments Date Tape rash, itching 10/12/2009 Oxycodone 04/04/2014 Nitrofurantoin 05/18/2015 Metolazone itching 01/30/2017 Percocet 03/24/2018 Inactive Allergies NKDA 08/01/2009 Medications Active Medications SIG Qnty Indications Ordering Date Provider Oxygen remove home fill J44.9 Corral-Cyndie 02/04/2019 oxygen system. , MD Jeffy Provide 02 cylinders for portability. Azithromycin take two tablets 6tabs Corral-Cyndie 02/04/2019 250mg today, then one a , MD Jeffy Tablets day for the next four days. Metolazone take 1 tab (30 30tabs R60.0 Chelita Art, 01/14/2019 2.5mg minutes before MD Tablets torsemide) prn edema or weight gain >2-3 lbs Flovent Diskus inhale one puff by 3months [...] 4units Thao Monson, 02/18/2017 6mm 100'S 31G / Insulin Four Times A M.D. 31G Day 04/18 Oxygen please provide oxy Corral-Cyndie 01/28/2017 pendant to assist in , MD Jeffy maintaining o2 saturations between 89-95% dx: copd Anoro Ellipta Use 1 Inhalation 180units J44.9 Corral-Cyndie 10/31/2016 Once Daily , MD Jeffy 62.5-25mcg/Inh Aerosol Lancets Freestyle Test Finger Stick 4units Thao Monson, 04/23/2016 100'S 28G Four Times A Day M.D. 28G Freestyle Lite Test test blood sugar 4x 600units Rickie Abarca 04/05/2016 a day E., DO Strips Pravastatin Sodium 1/2 by mouth at 90tabs E78.2 Thao Monson, 03/21/2016 bedtime M.D. 10mg Tablets Pen Bison use to inject 400units Laney Monsonri, 01/30/2016 31G X 6 insulin 4x/day [facility] Ultra Fine Test fs 4x/day 400units Laney Monsonri, 03/08/2015 M.D. Misc [facility] High Potency Once Daily Unknown 04/08/2014 Vitamin D 1000Unit Tablets Torsemide 2 po daily LeLisa 20mg Galina, SLIDE MAKER Tablets Klor-Con M20 1 by mouth twice a 180tabs Edgardo, 20Meq day Tate Bangura, Tablets ER Mary.DElder, [facility] Cephalexin 1 po daily Unknown 250mg Capsules Myrbetriq 1 by mouth every day Unknown 50mg Tablets ER 24HR Lantus Solostar 30 units in am and Unknown sliding scale 100Unit/ML Solution Pen-Inject Advil 2 tabs po at bedtime Unknown 200mg Tablets prn. Estrace insert one-half Unknown 0.1mg/GM applicatorful Cream vaginally once to twice per week as needed Probiotic 1 capsule po daily Unknown Capsules Novolog Flexpen sliding scale. Unknown 100Unit/ML Solution Pen-Inject Aspir-Low 1 by mouth every day Unknown 81mg Tablets DR Fish Oil 1 po qday Unknown Capsules Multivitamins 1 po qd Unknown Tablets Cranberry Juice 2 tabs twice a day Unknown Extract 1000mg Capsules History Medications Metolazone Take 1 Tablet 30 90tabs R60.0 Tate Reynoso 11/03/2018 - 5mg Minutes Before Richmond Bangura, FACC 01/14/2019 Tablets Torsemide Dose Every Other Day Mucinex Twice a day as 60tabs J44.9 Frederick Rossi MD 2018 - 600mg needed for cough. Unknown Tablets ER 12HR Medications Administered in Office Medication SIG Qnty Indications Ordering Provider Date Vitamin B12 Injection 1000 Letty Blair, DO 11/13/2017 mcg/Ml Injection Theraputic Or Diagnostic Letty Blair, 11/13/2017 Injection Injection Depo-Medrol 20mg Annemarie Plasencia [facility] 01/29/2013 Injection Immunizations Description No Information Available Vital Signs Date Vital Result Comment 02/04/2019 2:58pm BP Systolic Sitting Right Arm 109 mmHg BP Diastolic Sitting Right Arm 50 mmHg Heart Rate 102 /min Respiratory Rate 20 /min O2 % BldC Oximetry 90 % nc/6l 02/03/2019 1:24pm BP Systolic 122 mmHg BP Diastolic 53 mmHg Body Temperature 97.8 F Heart Rate 94 /min Respiratory Rate 20 /min Weight 215.00 lb O2 % BldC Oximetry 865 % Results Test Date Facility Test Result H/L Range Note CBC 02/04/2019 [facility] White Blood 12.6 K/uL High 3.1-10.7 1 W/Automated [address] Count Diff [place], [place] [address] [phone] Red Blood Count 3.37 M/uL Low 3.90-5.40 Hemoglobin 9.0 gm/dL Low 11.6-15.8 Hematocrit 29.5 % Low 36.0-46.1 Mean Cell Volume 87.5 fl Normal 80.9-99.0 Mean Corpuscular HGB 26.7 pg Normal 25.9-32.7 Mean Corpuscular HGB Conc 30.5 g/dL Low 30.8-34.3 Platelet Count 195 K/uL Normal 155-360 Red Cell Distri Width SD 56.3 fl High 36-47 Red Cell Distri Width %CV 17.9 % High 11.7-14.4 Mean Platelet Volume 11.0 fl Normal 8.9-12.4 Neut% 79.5 % High 40.4-72.8 Lymph % 9.7 % Low 20.0-42.0 [place] % 6.3 % Normal 4.3-13.2 Eo% 2.9 % Normal 0.0-6.6 Bas% 0.3 % Normal 0.0-1.1 Immature Grans 1.3 % Normal 0.0-5.0 NRBC % 0.0 /100WBC < 10/ 100 WBC Neut# 10.04 K/uL High 1.8-7.0 Lymph # 1.22 K/uL Normal 1.0-4.0 [place] # 0.79 K/uL Normal 0.3-0.9 Eos # 0.36 K/uL Normal 0.0-0.5 Baso # 0.04 K/uL Normal 0.0-0.1 Immature Grans Absolute 0.16 K/uL NRBC # 0.00 K/uL Comprehensive Metabolic 02/04/2019 [facility] Glucose 112 mg/dL High 74-[address] [place] [address] [phone] BUN 50 mg/dL High 7-18 Creatinine 1.5 mg/dL High 0.6-1.3 Glom Filtration Rate, Estimate 35 mL/min >60 If 43 mL/min >60 2 BUN/Creat 33.3 ratio Sodium 132 mmol/L Low 136-145 Potassium 3.6 mmol/L Normal 3.5-5.1 Chloride 91 mmol/L Low 98-107 Carbon Dioxide 36 mmol/L High 21-32 Anion Gap 5 mEq/L Low 8-16 Calcium 10.3 mg/dL High 8.5-10.1 Total Protein 7.8 g/dL Normal 6.4-8.2 Albumin 2.8 g/dL Low 3.4-5.0 Globulin 5.0 g/dL High 1.9-4.3 Alb/Glob 0.6 ratio Bilirubin,Total 0.3 mg/dL Normal 0.2-1.0 Sgot/Ast 16 U/L Normal 15-37 SGPT/Alt 18 U/L Normal 12-78 Alkaline Phosphatase 116 U/L Normal 45-117 CBC W/Automated 01/26/2019 [facility] White Blood 9.3 K/uL Normal 3.1-10.[address] [place] [address] [phone] Red Blood Count 3.21 M/uL Low 3.90-5.40 Hemoglobin 8.6 gm/dL Low 11.6-15.8 Hematocrit 29.0 % Low 36.0-46.1 Mean Cell Volume 90.3 fl Normal 80.9-99.0 Mean Corpuscular HGB 26.8 pg Normal 25.9-32.7 Mean Corpuscular HGB Conc 29.7 g/dL Low 30.8-34.3 Platelet Count 153 K/uL Low 155-360 Red Cell Distri Width SD 59.3 fl High 36-47 Red Cell Distri Width %CV 18.0 % High 11.7-14.4 Mean Platelet Volume 11.7 fl Normal 8.9-12.4 Neut% 77.4 % High 40.4-72.8 Lymph % 11.2 % Low 20.0-42.0 [place] % 6.3 % Normal 4.3-13.2 Eo% 3.7 % Normal 0.0-6.6 Bas% 0.4 % Normal 0.0-1.1 Immature Grans 1.0 % Normal 0.0-5.0 NRBC % 0.2 /100WBC < 10/ 100 WBC Neut# 7.18 K/uL High 1.8-7.0 Lymph # 1.04 K/uL Normal 1.0-4.0 [place] # 0.58 K/uL Normal 0.3-0.9 Eos # 0.34 K/uL Normal 0.0-0.5 Baso # 0.04 K/uL Normal 0.0-0.1 Immature Grans Absolute 0.09 K/uL NRBC # 0.02 K/uL Comprehensive Metabolic 01/26/2019 [facility] Glucose 121 mg/dL High 74-106 Panel [address] [place] [address] [phone] BUN 29 mg/dL High 7-18 Creatinine 1.4 mg/dL High 0.6-1.3 Glom Filtration Rate, Estimate 38 mL/min >60 If 46 mL/min >60 4 BUN/Creat 20.7 ratio Sodium 137 mmol/L Normal 136-145 Potassium 3.0 mmol/L Low 3.5-5.1 Chloride 95 mmol/L Low 98-107 Carbon Dioxide 34 mmol/L High 21-32 Anion Gap 8 mEq/L Normal 8-16 Calcium 9.3 mg/dL Normal 8.5-10.1 Total Protein 7.2 g/dL Normal 6.4-8.2 Albumin 2.7 g/dL Low 3.4-5.0 Globulin 4.5 g/dL High 1.9-4.3 Alb/Glob 0.6 ratio Bilirubin,Total 0.3 mg/dL Normal 0.2-1.0 Sgot/Ast 18 U/L Normal 15-37 SGPT/Alt 30 U/L Normal 12-78 Alkaline Phosphatase 147 U/L High 45-117 Iron-Tibc-%Sat 01/26/2019 [facility] Serum Iron 49 g/dL Low 50-170 [address] [place], [place] [id number] [phone] Total Iron Binding Capacity 335 g/dL Normal 250-450 Transferrin %Saturation 15 % Normal 12-57 Laboratory test 01/26/2019 [facility] Ferritin 75 ng/mL Normal 8-252 finding [address] [place] [address] [phone] Vitamin B12 And 01/26/2019 [facility] Vitamin B12 574 pg/mL Normal 193-986 Folate [address] [place], [place] [id number] [phone] Folic Acid > 20.0 ng/mL High 3.1-17.5 Basic Metabolic Panel 01/16/2019 [facility] Glucose 212 mg/dL High 74-106 5 [address] [place], [place] [address] [phone] BUN 37 mg/dL High 7-18 Creatinine 1.4 mg/dL High 0.6-1.3 Glom Filtration Rate, Estimate 38 mL/min >60 If 46 mL/min >60 6 BUN/Creat 26.4 ratio Sodium 137 mmol/L Normal 136-145 Potassium 3.6 mmol/L Normal 3.5-5.1 Chloride 97 mmol/L Low 98-107 Carbon Dioxide 37 mmol/L High 21-32 Anion Gap 3 mEq/L Low 8-16 Calcium 9.3 mg/dL Normal 8.5-10.1 Laboratory 01/16/2019 [facility] Magnesium 2.0 mg/dL Normal 1.8-2.4 test finding [address] [place] [address] [phone] Laboratory 12/12/2018 [facility] Slide Review (SEE 7, 8 test finding [address] [facility] NOTE) [place], [place] [id number] [phone] Vitamin B12 12/12/2018 [facility] Vitamin B12 574 pg/mL Normal 193-986 And Folate [address] [place], [place] [address] [phone] Folic Acid > 20.0 ng/mL High 3.1-17.5 Laboratory test 12/12/2018 [facility] Ferritin 142 ng/mL Normal 8-252 finding [address] [place], [place] [address] [phone] Iron-Tibc-%Sat 12/12/2018 [facility] Serum Iron 55 g/dL Normal 50-170 [address] [place], [place] [address] [phone] Total Iron Binding Capacity 357 g/dL Normal 250-450 Transferrin %Saturation 15 % Normal 12-57 Comprehensive Metabolic 12/12/2018 [facility] Glucose 150 mg/dL High 74-106 Panel [address] [place] [address] [phone] BUN 52 mg/dL High 7-18 Creatinine 1.6 mg/dL High 0.6-1.3 Glom Filtration Rate, Estimate 33 mL/min >60 If 40 mL/min >60 9 BUN/Creat 32.5 ratio Sodium 137 mmol/L Normal [...] 12-78 Alkaline Phosphatase 123 U/L High 45-117 CBC W/Automated 12/12/2018 [facility] White Blood 8.2 K/uL Normal 3.1-10.7 Diff [address] [place] [place] [address] [phone] Red Blood Count 3.43 M/uL Low 3.90-5.40 [...] 40.4-72.8 Lymph % 14.7 % Low 20.0-42.0 [place] % 6.5 % Normal 4.3-13.2 Eo% 7.1 % High 0.0-6.6 Bas% 0.4 % Normal 0.0-1.1 Immature Grans 1.0 % Normal 0.0-5.0 NRBC % 0.0 /100WBC < 10/ 100 WBC Neut# 5.74 K/uL Normal 1.8-7.0 Lymph # 1.20 K/uL Normal 1.0-4.0 [place] # 0.53 K/uL Normal 0.3-0.9 Eos # 0.58 K/uL High 0.0-0.5 Baso # 0.03 K/uL Normal 0.0-0.1 Immature Grans Absolute 0.08 K/uL NRBC # 0.00 K/uL Reticulocyte 10/29/2018 [facility] Retic 30.3 Normal 27.9-37.0 10 Count,Automated [address] Hemoglobin pg [place], [place] [address] [phone] Retic % 4.7 % High 0.5-1.8 Absolute Retic 170 K/uL High 24-84 Immature Retic Fraction 29.9 % High 2.9-15.5 Laboratory test 10/29/2018 [facility] Vitamin 47.1 30.0-100.0 [address] D,25-Hydroxy ng/mL [place], [place] [address] [phone] LDH 245 U/L Normal 84-246 Sedimentation Rate 67 mm/hr High 2-55 12 Vitamin B12 And 10/29/2018 [facility] Vitamin B12 714 pg/mL Normal 193-[address] [place] [address] [phone] Folic Acid > 20.0 ng/mL High 3.1-17.5 Immunoglobulins 10/29/2018 [facility] Immunoglobulin [phone] A/G/M, QN, Ser [address] G,Quant,Serum mg/dL [place], [place] [address] [phone] Immunoglobulin A 312 mg/dL 64-422 Immunoglobulin M 35 mg/dL 26-217 13 Laboratory test 10/29/2018 [facility] Ferritin 59 ng/mL Normal 8-252 finding [address] [place] [address] [phone] CBC W/Automated 10/29/2018 [facility] White Blood 11.7 K/uL High 3.1-10.[address] [place] [address] [phone] Red Blood Count 3.65 M/uL Low 3.90-5.40 [...] 40.4-72.8 Lymph % 12.0 % Low 20.0-42.0 [place] % 6.6 % Normal 4.3-13.2 Eo% 4.2 % Normal 0.0-6.6 Bas% 0.3 % Normal 0.0-1.1 Immature Grans 1.1 % Normal 0.0-5.0 NRBC % 0.0 /100WBC < 10/ 100 WBC Neut# 8.84 K/uL High 1.8-7.0 Lymph # 1.40 K/uL Normal 1.0-4.0 [place] # 0.77 K/uL Normal 0.3-0.9 Eos # 0.49 K/uL Normal 0.0-0.5 Baso # 0.04 K/uL Normal 0.0-0.1 Immature Grans Absolute 0.13 K/uL NRBC # 0.00 K/uL Comprehensive Metabolic 10/29/2018 [facility] Glucose 137 mg/dL High 74-106 Panel [address] [place] [address] [phone] BUN 71 mg/dL High 7-18 Creatinine 1.8 mg/dL High 0.6-1.3 Glom Filtration Rate, Estimate 29 mL/min >60 If 35 mL/min >60 14 BUN/Creat 39.4 ratio Sodium 135 mmol/L Low [...] 12-78 Alkaline Phosphatase 149 U/L High 45-117 Iron-Tibc-%Sat 10/29/2018 [facility] Serum Iron 44 g/dL Low 50-170 [address] [place] [address] [phone] Total Iron Binding Capacity 444 g/dL Normal 250-450 Transferrin %Saturation 10 % Low 12-57 Comprehensive 10/24/2018 [facility] Glucose 130 mg/dL High 74-106 15 Metabolic Panel [address] [place] [address] [phone] BUN 92 mg/dL High 7-18 Creatinine 2.4 mg/dL High 0.6-1.3 Glom Filtration Rate, Estimate 21 mL/min >60 If 25 mL/min >60 16 BUN/Creat 38.3 ratio Sodium 135 mmol/L Low [...] 12-78 Alkaline Phosphatase 168 U/L High 45-117 Laboratory 10/22/2018 [facility] Vitamin 43.8 30.0-100.0 17, test finding [address] [facility] D,25-Hydroxy ng/mL [address] [place] [address] [phone] Vitamin B12 10/22/2018 [facility] Vitamin B12 717 Normal 193-[address] pg/[place] [address] [phone] Folic Acid > 20.0 ng/mL High 3.1-17.5 Laboratory test 10/22/2018 [facility] Ferritin 99 ng/mL Normal 8-252 19 finding [address] [place] [address] [phone] Iron-Tibc-%Sat 10/22/2018 [facility] Serum Iron 77 g/dL Normal 50-170 [address] [place] [address] [phone] Total Iron Binding Capacity 450 g/dL Normal 250-450 Transferrin %Saturation 17 % Normal 12-57 Comprehensive Metabolic 10/22/2018 [facility] Glucose 203 mg/dL High 74-106 Panel [address] [place], [place] [address] [phone] BUN 85 mg/dL High 7-18 Creatinine 2.0 mg/dL High 0.6-1.3 Glom Filtration Rate, Estimate 25 mL/min >60 If 31 mL/min >60 20 BUN/Creat 42.5 ratio Sodium 129 mmol/L Low [...] 12-78 Alkaline Phosphatase 170 U/L High 45-117 CBS W/Automated 10/22/2018 [facility] White Blood 12.1 K/uL High 3.1-10.[address] Count [place], [place] [address] [phone] Red Blood Count 3.51 M/uL Low 3.90-5.40 [...] 40.4-72.8 Lymph % 10.0 % Low 20.0-42.0 [place] % 6.0 % Normal 4.3-13.2 Eo% 5.0 % Normal 0.0-6.6 Bas% 0.2 % Normal 0.0-1.1 Immature Grans 2.2 % Normal 0.0-5.0 NRBC % 0.2 /100WBC < 10/ 100 WBC Neut# 9.23 K/uL High 1.8-7.0 Lymph # 1.20 K/uL Normal 1.0-4.0 [place] # 0.72 K/uL Normal 0.3-0.9 Eos # 0.60 K/uL High 0.0-0.5 Baso # 0.03 K/uL Normal 0.0-0.1 Immature Grans Absolute 0.27 K/uL NRBC # 0.02 K/uL 1 R06.02 2 Note: Persistent reduction for 3 months or more in an eGFR <60 mL/min/1.73 m2 defines CKD. Patients with eGFR values >/=60 mL/min/1.73 m2 may also have CKD if evidence of persistent proteinuria is present. The original MDRD equation for estimated GFR is not valid for patients less than 18 years of age. Additional information may be found at www.kdoqi.org. 3 C34.32 J44.9 4 Note: Persistent reduction for 3 months or more in an eGFR <60 mL/min/1.73 m2 defines CKD. Patients with eGFR values >/=60 mL/min/1.73 m2 may also have CKD if evidence of persistent proteinuria is present. The original MDRD equation for estimated GFR is not valid for patients less than 18 years of age. Additional information may be found at www.kdoqi.org. 5 R60.0 6 Note: Persistent reduction for 3 months or more in an eGFR <60 mL/min/1.73 m2 defines CKD. Patients with eGFR values >/=60 mL/min/1.73 m2 may also have CKD if evidence of persistent proteinuria is present. The original MDRD equation for estimated GFR is not valid for patients less than 18 years of age. Additional information may be found at www.kdoqi.org. 7 C34.32 C34.31 8 Instrument flagged sample for slide review. Less than 10% Bands seen, no other immature WBC's seen. RBC morphology essentially normal. Platelet estimate = NORMAL, FEW FIBRIN STRANDS SEEN ON SLIDE 9 Note: Persistent reduction for 3 months or more in an eGFR <60 mL/min/1.73 m2 defines CKD. Patients with eGFR values >/=60 mL/min/1.73 m2 may also have CKD if evidence of persistent proteinuria is present. The original MDRD equation for estimated GFR is not valid for patients less than 18 years of age. Additional information may be found at www.kdoqi.org. 10 C34.32 J44.9 11 Vitamin D deficiency has been defined by the [place] of [employer] and an Endocrine Society practice guideline as a level of serum 25-OH vitamin D less than 20 ng/mL (1,2). The Endocrine Society went on to further define vitamin D insufficiency as a level between 21 and 29 ng/mL (2). 1. IOM ([place] of [employer]). 2010. Dietary reference intakes for calcium and D. [place]: The National Academies Press. 2. Martin MF, Sara DALTON, [address], et al. Evaluation, treatment, and prevention of vitamin D deficiency: an Endocrine Society clinical practice guideline. JCEM. 2010; 96(7):1911-30. Performed at: [facility] [address] [id number] Overhead Cleaner Maintainer: Eryn Balderas MD, Phone: [phone] 12 This result was obtained with an ESR method that is not based on the standard Westergren Method. When comparing results obtained from the traditional Westergren ESR and this method it is important to refer to the reference range for each method. Method: Capillary Photometry 13 Performed at: [facility] [address] [id number] Overhead Cleaner Maintainer: Eryn Balderas MD, Phone: [phone] 14 Note: Persistent reduction for 3 months or more in an eGFR <60 mL/min/1.73 m2 defines CKD. Patients with eGFR values >/=60 mL/min/1.73 m2 may also have CKD if evidence of persistent proteinuria is present. The original MDRD equation for estimated GFR is not valid for patients less than 18 years of age. Additional information may be found at www.kdoqi.org. 15 C34.32 16 Note: Persistent reduction for 3 months or more in an eGFR <60 mL/min/1.73 m2 defines CKD. Patients with eGFR values >/=60 mL/min/1.73 m2 may also have CKD if evidence of persistent proteinuria is present. The original MDRD equation for estimated GFR is not valid for patients less than 18 years of age. Additional information may be found at www.kdoqi.org. 17 C34.32 J44.9 18 Vitamin D deficiency has been defined by the [place] of [employer] and an Endocrine Society practice guideline as a level of serum 25-OH vitamin D less than 20 ng/mL (1,2). The Endocrine Society went on to further define vitamin D insufficiency as a level between 21 and 29 ng/mL (2). 1. IOM ([place] of [employer]). 2010. Dietary reference intakes for calcium and D. [place]: The National Academies Press. 2. Martin MF, Sara [place], Aaron ST[address], et al. Evaluation, treatment, and prevention of vitamin D deficiency: an Endocrine Society clinical practice guideline. JCEM. 2010; 96(7):1911-30. Performed at: RN - [facility] [address] [id number] Overhead Cleaner Maintainer: Eryn Balderas MD, Phone: [phone] CHECKED CALLED RUPA WheelerElder WITH POTASSIUM AT 1201 10/22/18 20 Note: Persistent reduction for 3 months or more in an eGFR <60 mL/min/1.73 m2 defines CKD. Patients with eGFR values >/=60 mL/min/1.73 m2 may also have CKD if evidence of persistent proteinuria is present. The original MDRD equation for estimated GFR is not valid for patients less than 18 years of age. Additional information may be found at www.kdoqi.org. Procedures Date Code Description Status 01/14/2019 18119 EKG-Tracing And Report Completed 09/04/2018 79774 Echocardiogram Complete Completed 12/05/2010 95782250 Mammogram Completed 11/13/2010 971120178 Bone Mineral Density Test Completed Medical Devices Description No Information Available Encounters Type Date Location Provider Dx Diagnosis Office Visit 02/04/2019 3:00p Pulmonology Joanne Garzon PA R05 Cough R09.02 Hypoxemia R60.0 Localized edema Office Visit 01/14/2019 8:00a Cardiology Office Emelina, R60.0 Localized edema VASQUEZ Weldon R94.31 Abnormal electrocardiogram [ECG] [EKG] E87.6 Hypokalemia R07.9 Chest pain, unspecified Office Visit 12/23/2018 11:30a Infusion Center Niecy Pacheco E61.1 Iron deficiency B., SLIDE MAKER D64.9 Anemia, unspecified 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, left bronchus or lung Office Visit 10/29/2018 12:30p Oncology Office Boalyceal, C34.32 Malignant Letty, DO neoplasm of lower lobe, left bronchus or lung D64.9 Anemia, unspecified Office Visit 2018 3:30p Pulmonology Frederick Rossi MD J44.9 Chronic obstructive pulmonary disease, unspecified R09.02 Hypoxemia Z99.81 Dependence on supplemental oxygen Assessments Date Code Description Provider 02/04/2019 R05 Cough Joanne Garzon PA 02/04/2019 R09.02 Hypoxemia Joanne Garzon PA 02/04/2019 R60.0 Localized edema Joanne Garzon PA 01/26/2019 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, left Boufal, Letty, DO bronchus or lung 01/26/2019 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, left Oncology Nurse bronchus or lung 01/26/2019 J44.9 Chronic obstructive pulmonary disease, Boufal, Letty, DO unspecified 01/26/2019 J44.9 Chronic obstructive pulmonary disease, Oncology Nurse unspecified 01/14/2019 R60.0 Localized edema Ann Tarango, PA 01/14/2019 R94.31 Abnormal electrocardiogram [ECG] [EKG] Ann Tarango , PA 01/14/2019 E87.6 Hypokalemia Ann Tarango PA 01/14/2019 R07.9 Chest pain, unspecified Ann Tarango, PA 12/23/2018 E61.1 Iron deficiency Niecy Pacheco, SLIDE MAKER 12/23/2018 D64.9 Anemia, unspecified Niecy Pacheco, SLIDE MAKER 12/23/2018 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, left Niecy Pacheco , SLIDE MAKER bronchus or lung 10/29/2018 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, left Boufal, Letty, DO bronchus or lung 10/29/2018 D64.9 Anemia, unspecified Boufal, Letty, DO 10/24/2018 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, left Boufal, Letty, DO bronchus or lung 10/24/2018 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, left Oncology Nurse bronchus or lung 10/22/2018 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, left BoalycealArit, DO bronchus or lung 10/22/2018 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, left Oncology Nurse bronchus or lung 10/22/2018 J44.9 Chronic obstructive pulmonary disease, Boufal, Letty, DO unspecified 10/22/2018 J44.9 Chronic obstructive pulmonary disease, Oncology Nurse unspecified 10/07/2018 J96.01 Acute respiratory failure with hypoxia ElizabethetAnanth, [employer] 10/07/2018 I50.33 Acute on chronic diastolic CadAnanth monroe, [employer] (congestive) heart failure 10/07/2018 E87.5 Hyperkalemia Ananth Guy, [employer] 10/07/2018 N18.6 End stage renal disease Ananth Guy, [employer] 10/06/2018 J96.01 Acute respiratory failure with hypoxia Ananth Guy, [employer] 10/06/2018 I50.33 Acute on chronic diastolic CadAnanth monroe FNP (congestive) heart failure 10/06/2018 E87.5 Hyperkalemia Ananth Guy, [employer] 10/06/2018 N18.6 End stage renal disease Ananth Guy, [employer] 10/05/2018 J96.01 Acute respiratory failure with hypoxia [...] diastolic Tate Reynoso M.D., (congestive) heart failure [facility] 10/02/2018 J96.01 Acute respiratory failure with hypoxia Gregor Wheeler MD 10/02/2018 J96.01 Acute respiratory failure with hypoxia Tate Reynoso M.D., [facility] 10/02/2018 I50.33 Acute on chronic diastolic Gregor Wheeler MD (congestive) heart failure 10/02/2018 E87.5 Hyperkalemia Tate Reynoso M.D., [facility] 10/02/2018 E87.5 Hyperkalemia Gregor Wheeler MD 10/02/2018 I73.9 Peripheral vascular disease, Tate Reynoso M.D., unspecified [facility] 10/02/2018 N18.6 End stage renal disease Gregor Wheeler MD 10/02/2018 R60.0 Localized edema Tate Reynoso M.D., [facility] 10/02/2018 I95.89 Other hypotension Tate Reynoso M.D., [facility] 10/01/2018 J96.01 Acute respiratory failure with [...] Shyla Garvin NP Plan of Treatment Future Appointment(s):03/25/2019 2:00 pm - Jeffy Goldberg MD at [facility]ugsnccsd71/26/2019 2:30 pm - Letty Blair DO at Oncology [id number] 8:00 am - Ann Tarango PA at Cardiology Office Functional Status Description No Information Available Mental Status Description No Information Available Referrals Description No Information Available
--- OUTSIDE RECORDS SUMMARY | 2019-02-15 13:48 | XMS REPORT | Continuity of Care Document ---
:1935 External Reference #:[id number] Author Name Ann Tarango PA (transmitted by agent of provider Chelita Art) Address [address], [address] [place] [address] Care Team Providers Name Role Phone Dea Johnson MD - Family Care Team Information Bridge Operator [phone] Medicine Problems Active Problems Provider Date Acquired [...] Monson, 03/21/2016 bedtime M.D. 10mg Tablets Pen [place] use to inject 400units Thao Monson, 01/30/2016 31G X 6 insulin 4x/day M.D. mm Misc Lancets Ultra Fine Test fs 4x/day 400units Jose MThao caraballo, 03/08/2015 M.D. Misc [facility] High Potency Once Daily Unknown 04/08/2014 Vitamin D 1000Unit Tablets Torsemide 2 po daily LeLisa 20mg [place], FOREST MANAGEMENT PROFESSOR Tablets Sertraline HCL 1 po daily Le, Lisa 25mg Galina, FOREST MANAGEMENT PROFESSOR Tablets Klor-Con M20 1 po bid Sen Alexander, 20Meq MD Tablets ER Cephalexin 1 po [...] Tate Reynoso 11/03/2018 - 5mg Minutes Before MRichmond Friedman, [facility] 01/14/2019 Tablets Torsemide Dose Every Other Day Medications Administered in Office Medication SIG Qnty Indications Ordering Provider Date Vitamin B12 Injection 1000 Letty Blair, DO 11/13/2017 mcg/Ml Injection Theraputic Or Diagnostic Letty Blair, DO 11/13/2017 Injection Injection Depo-Medrol 20mg Annemarie Plasencia, [facility] 01/29/2013 Injection Immunizations Description No Information Available Vital Signs Date Vital Result Comment 01/14/2019 8:12am BP Systolic Sitting Left Arm 111 mmHg BP Diastolic Sitting Left Arm 56 mmHg Heart Rate 99 /min Respiratory Rate 16 /min Height 62 inches 5'2" Weight 210.00 lb BMI (Body Mass Index) 38.4 kg/m2 BSA (Body Surface Area) 1.95 m2 [place] body weight in kilograms 50 kg O2 % BldC Oximetry 96 % nc/4l 12/23/2018 9:12am BP Systolic 118 mmHg BP Diastolic 55 mmHg Body Temperature 98.3 F Heart Rate 107 /min Respiratory Rate 20 /min Weight 219.38 lb O2 % BldC Oximetry 91 % Pain Level 0 Results Test Date Facility Test Result H/L Range Note CBC 12/12/2018 [facility] White Blood 8.2 K/uL Normal 3.1-10.7 1 W/Automated [address] [place] [address] [phone] Red Blood Count 3.43 M/uL Low 3.90-5.40 [...] 40.4-72.8 Lymph % 14.7 % Low 20.0-42.0 [place] % 6.5 % Normal 4.3-13.2 Eo% 7.1 % High 0.0-6.6 Bas% 0.4 % Normal 0.0-1.1 Immature Grans 1.0 % Normal 0.0-5.0 NRBC % 0.0 /100WBC < 10/ 100 WBC Neut# 5.74 K/uL Normal 1.8-7.0 Lymph # 1.20 K/uL Normal 1.0-4.0 [place] # 0.53 K/uL Normal 0.3-0.9 Eos # 0.58 K/uL High 0.0-0.5 Baso # 0.03 K/uL Normal 0.0-0.1 Immature Grans Absolute 0.08 K/uL NRBC # 0.00 K/uL Comprehensive Metabolic 12/12/2018 [facility] Glucose 150 mg/dL High 74-106 Panel [address] [place] [address] [phone] BUN 52 mg/dL High 7-18 Creatinine 1.6 [...] Phosphatase 123 U/L High 45-117 Iron-Tibc-%Sat 12/12/2018 [facility] Serum Iron 55 g/dL Normal 50-170 [address] [place] [address] [phone] Total Iron Binding Capacity 357 g/dL Normal 250-450 Transferrin %Saturation 15 % Normal 12-57 Laboratory test 12/12/2018 [facility] Ferritin 142 ng/mL Normal 8-252 finding [address] [place] [address] [phone] Vitamin B12 And 12/12/2018 [facility] Vitamin B12 574 pg/mL Normal 193-[address] [place] [address] [phone] Folic Acid > 20.0 ng/mL High 3.1-17.5 Laboratory test 12/12/2018 [facility] Slide Review (SEE NOTE) 3 finding [address] [place] [address] [phone] Reticulocyte 10/29/2018 [facility] Retic 30.3 pg Normal 27.9 4 Count,Automated [address] [facility] Hemoglobin -37. [place] [address] [phone] Retic % 4.7 % High 0.5-1.8 Absolute Retic 170 K/uL High 24-84 Immature Retic Fraction 29.9 % High 2.9-15.5 Laboratory test 10/29/2018 [facility] Vitamin 47.1 30.0-100.0 5 finding [address] [facility] D,25-Hydroxy ng/[place] [address] [phone] LDH 245 U/L Normal 84-246 Sedimentation Rate 67 mm/hr High 2-55 6 Vitamin B12 And 10/29/2018 [facility] Vitamin B12 714 pg/mL Normal 193-986 Folate [address] [place] [address] [phone] Folic Acid > 20.0 ng/mL High 3.1-17.5 Immunoglobulins 10/29/2018 [facility] Immunoglobulin [phone] A/G/M, QN, Ser [address] G,Quant,Serum mg/[place] [address] [phone] Immunoglobulin A 312 mg/dL 64-422 Immunoglobulin M 35 mg/dL 26-217 7 Laboratory test 10/29/2018 [facility] Ferritin 59 ng/mL Normal 8-252 finding [address] [place] [address] [phone] Iron-Tibc-%Sat 10/29/2018 [facility] Serum Iron 44 g/dL Low 50-170 [address] [place] [address] [phone] Total Iron Binding Capacity 444 g/dL Normal 250-450 Transferrin %Saturation 10 % Low 12-57 Comprehensive Metabolic 10/29/2018 [facility] Glucose 137 mg/dL High 74-106 Panel [address] [place] [address] [phone] BUN 71 mg/dL High 7-18 Creatinine 1.8 [...] 149 U/L High 45-117 CBC W/Automated 10/29/2018 [facility] White Blood 11.7 K/uL High 3.1-10.7 Diff [address] [place] [address] [phone] Red Blood Count 3.65 M/uL Low 3.90-5.40 [...] 40.4-72.8 Lymph % 12.0 % Low 20.0-42.0 [place] % 6.6 % Normal 4.3-13.2 Eo% 4.2 % Normal 0.0-6.6 Bas% 0.3 % Normal 0.0-1.1 Immature Grans 1.1 % Normal 0.0-5.0 NRBC % 0.0 /100WBC < 10/ 100 WBC Neut# 8.84 K/uL High 1.8-7.0 Lymph # 1.40 K/uL Normal 1.0-4.0 [place] # 0.77 K/uL Normal 0.3-0.9 Eos # 0.49 K/uL Normal 0.0-0.5 Baso # 0.04 K/uL Normal 0.0-0.1 Immature Grans Absolute 0.13 K/uL NRBC # 0.00 K/uL Comprehensive Metabolic 10/24/2018 [facility] Glucose 130 mg/dL High 74-106 9 Panel [address] [place], [place] [id number] [phone] BUN 92 mg/dL High 7-18 Creatinine 2.4 [...] 168 U/L High 45-117 CBS W/Automated 10/22/2018 [facility] White Blood 12.1 K/uL High 3.1-10.[address] Count [place], [place] [id number] [phone] Red Blood Count 3.51 M/uL Low 3.90-5.40 [...] 40.4-72.8 Lymph % 10.0 % Low 20.0-42.0 [place] % 6.0 % Normal 4.3-13.2 Eo% 5.0 % Normal 0.0-6.6 Bas% 0.2 % Normal 0.0-1.1 Immature Grans 2.2 % Normal 0.0-5.0 NRBC % 0.2 /100WBC < 10/ 100 WBC Neut# 9.23 K/uL High 1.8-7.0 Lymph # 1.20 K/uL Normal 1.0-4.0 [place] # 0.72 K/uL Normal 0.3-0.9 Eos # 0.60 K/uL High 0.0-0.5 Baso # 0.03 K/uL Normal 0.0-0.1 Immature Grans Absolute 0.27 K/uL NRBC # 0.02 K/uL Comprehensive Metabolic 10/22/2018 [facility] Glucose 203 mg/dL High 74-[address] [place], [place] [address] [phone] BUN 85 mg/dL High 7-18 Creatinine 2.0 [...] Phosphatase 170 U/L High 45-117 Iron-Tibc-%Sat 10/22/2018 [facility] Serum Iron 77 g/dL Normal 50-170 [address] [place] [address] [phone] Total Iron Binding Capacity 450 g/dL Normal 250-450 Transferrin %Saturation 17 % Normal 12-57 Laboratory test 10/22/2018 [facility] Ferritin 99 ng/mL Normal 8-252 13 finding [address] [place] [address] [phone] Vitamin B12 And 10/22/2018 [facility] Vitamin B12 717 pg/mL Normal 193-986 Folate [address] [place] [address] [phone] Folic Acid > 20.0 ng/mL High 3.1-17.5 Laboratory test 10/22/2018 [facility] Vitamin 43.8 30.0-100.0 14 finding [address] [facility] D,25-Hydroxy ng/[place] [address] [phone] 1 C34.32 C34.31 2 Note: Persistent reduction [...] D deficiency has been defined by the [place] [employer] and an Endocrine Society practice guideline as a level of serum 25-OH vitamin D less than 20 ng/mL (1,2). The Endocrine Society went on to further define vitamin D insufficiency as a level between 21 and 29 ng/mL (2). 1. IOM ([place] [employer]). 2010. Dietary reference intakes for calcium and D. [place]: The National Academies Press. 2. Martin MF, Sara [place], [address], et al. Evaluation, treatment, and prevention of vitamin D deficiency: an Endocrine Society clinical practice guideline. JCEM. 2010; 96(7):1911-30. Performed at: [facility] [address] [id number] Makeup Editor: Eryn Balderas MD, Phone: [phone] This result was obtained with an ESR method that is not based on the standard Westergren Method. When comparing results obtained from the traditional Westergren ESR and this method it is important to refer to the reference range for each method. Method: Capillary Photometry 7 Performed at: [facility] [facility] [employer] [address] [id number] Makeup Editor: Eryn Balderas MD, Phone: [phone] Note: Persistent reduction for 3 months [...] D deficiency has been defined by the [place] [employer] and an Endocrine Society practice guideline as a level of serum 25-OH vitamin D less than 20 ng/mL (1,2). The Endocrine Society went on to further define vitamin D insufficiency as a level between 21 and 29 ng/mL (2). 1. IOM ([place] [employer]). 2010. Dietary reference intakes for calcium and D. [place]: The National Academies Press. 2. Martin MF, [place], [address], et al. Evaluation, treatment, and prevention of vitamin D deficiency: an Endocrine Society clinical practice guideline. JCEM. 2010; 96(7):1911-30. Performed at: RN - [facility] [address] [id number] Makeup Editor: Eryn Balderas MD, Phone: [phone] Procedures Date Code Description Status 01/14/2019 15170 EKG-Tracing And Report Completed 09/04/2018 17651 Echocardiogram Complete Completed 12/05/2010 89532765 Mammogram Completed 11/13/2010 829500458 Bone Mineral Density Test Completed Medical Devices Description No Information Available Encounters Type Date Location Provider Dx Diagnosis Office Visit 01/14/2019 Cardiology Office Ann Tarango R60.0 Localized edema 8:00a Kurt.VASQUEZ R94.31 Abnormal electrocardiogram [ECG] [EKG] E87.6 Hypokalemia R07.9 Chest pain, unspecified Office Visit 12/23/2018 11:30a Infusion Center Niecy Pacheco E61.1 Iron deficiency B., FOREST MANAGEMENT PROFESSOR D64.9 Anemia, unspecified C34.32 Malignant neoplasm of [...] PA 12/23/2018 E61.1 Iron deficiency Niecy Pacheco, FOREST MANAGEMENT PROFESSOR 12/23/2018 D64.9 Anemia, unspecified Niecy Pacheco, FOREST MANAGEMENT PROFESSOR 12/23/2018 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, left Niecy Pacheco , FOREST MANAGEMENT PROFESSOR bronchus or lung 10/29/2018 C34.32 Malignant neoplasm [...] N18.6 End stage renal disease Ananth Guy, [facility] 10/06/2018 J96.01 Acute respiratory failure with hypoxia Ananth Guy, [facility] 10/06/2018 I50.33 Acute on chronic diastolic Ananth Guy, [facility] (congestive) heart failure 10/06/2018 E87.5 Hyperkalemia Ananth Guy, [facility] 10/06/2018 N18.6 End stage renal disease Ananth Guy, [facility] 10/05/2018 J96.01 Acute respiratory failure with hypoxia [...] respiratory failure with hypoxia Tate Reynoso M.D., [facility] 10/02/2018 I50.33 Acute on chronic diastolic Gregor Wheeler MD (congestive) heart failure 10/02/2018 E87.5 Hyperkalemia Tate Reynoso M.D., [facility] 10/02/2018 E87.5 HyperkaleGregor Stephens MD 10/02/2018 I73.9 Peripheral vascular disease, Tate Reynoso M.D., unspecified [facility] 10/02/2018 N18.6 End stage renal disease Gregor Wheeler MD 10/02/2018 R60.0 Localized edema Tate Reynoso M.D., [facility] 10/02/2018 I95.89 Other hypotension Tate Reynoso M.D., [facility] 10/01/2018 J96.01 Acute respiratory failure with hypoxia [...] Treatment Future Appointment(s):02/18/2019 8:00 am - Ann Tarango PA at Cardiology Wiczen4402/03/2019 1:30 pm - Niecy Pacheco NP at [facility] Robptn4601/27/2019 9:00 am - Oncology Nurse at Oncology Oynvrk6303/26/2019 9:20 am - Joanne Garzon PA at Feycjuknajl02/02/2019 - Ann Tarango, PAR60.0 Localized edemaNew Medication:Metolazone [...]
--- OUTSIDE RECORDS SUMMARY | 2019-02-15 13:48 | XMS REPORT | Continuity of Care Document ---
:1935 External Reference #:[id number] Author Name Ann Tarango PA (transmitted by agent of provider Zohra Quigley) Address [address], [address] [place] [address] Care Team Providers Name Role Phone Dea Johnson MD - Family Care Team Information Laboratory Analyst Medicine Problems Active Problems Provider Date Acquired [...] Monson, 03/21/2016 bedtime M.D. 10mg Tablets Pen [place] use to inject 400units Thao Monson, 01/30/2016 31G X 6 insulin 4x/day M.D. mm Misc Lancets Ultra Fine Test fs 4x/day 400units Jose MThao caraballo, 03/08/2015 M.D. Misc [facility] High Potency Once Daily Unknown 04/08/2014 Vitamin D 1000Unit Tablets Torsemide 2 po daily LeLisa 20mg [place], [employer] Tablets Sertraline HCL 1 po daily Le, Lisa 25mg [place], [employer] Tablets Klor-Con M20 1 po bid Sen [...] 11/03/2018 - 5mg Minutes Before MRichmond Friedman, [facility] 01/14/2019 Tablets Torsemide Dose Every Other Day Medications Administered in Office Medication SIG Qnty Indications Ordering Provider Date Vitamin B12 Injection 1000 Letty Blair, DO 11/13/2017 mcg/Ml Injection Theraputic Or Diagnostic Letty Blair, DO 11/13/2017 Injection Injection Depo-Medrol 20mg Annemarie Plasencia, [facility] 01/29/2013 Injection Immunizations Description No Information Available Vital Signs Date Vital Result Comment 01/14/2019 8:12am BP Systolic Sitting Left Arm 111 mmHg BP Diastolic Sitting Left Arm 56 mmHg Heart Rate 99 /min Respiratory Rate 16 /min Height 62 inches 5'2" Weight 210.00 lb BMI (Body Mass Index) 38.4 kg/m2 BSA (Body Surface Area) 1.95 m2 [place] body weight in kilograms 50 kg O2 % BldC Oximetry 96 % nc/4l 12/23/2018 9:12am BP Systolic 118 mmHg BP Diastolic 55 mmHg Body Temperature 98.3 F Heart Rate 107 /min Respiratory Rate 20 /min Weight 219.38 lb O2 % BldC Oximetry 91 % Pain Level 0 Results Test Date Facility Test Result H/L Range Note CBC 12/12/2018 [facility] White Blood 8.2 K/uL Normal 3.1-10.7 1 W/Automated [address] [place] [address] [phone] Red Blood Count 3.43 M/uL Low 3.90-5.40 [...] 40.4-72.8 Lymph % 14.7 % Low 20.0-42.0 [place] % 6.5 % Normal 4.3-13.2 Eo% 7.1 % High 0.0-6.6 Bas% 0.4 % Normal 0.0-1.1 Immature Grans 1.0 % Normal 0.0-5.0 NRBC % 0.0 /100WBC < 10/ 100 WBC Neut# 5.74 K/uL Normal 1.8-7.0 Lymph # 1.20 K/uL Normal 1.0-4.0 [place] # 0.53 K/uL Normal 0.3-0.9 Eos # 0.58 K/uL High 0.0-0.5 Baso # 0.03 K/uL Normal 0.0-0.1 Immature Grans Absolute 0.08 K/uL NRBC # 0.00 K/uL Comprehensive Metabolic 12/12/2018 [facility] Glucose 150 mg/dL High 74-106 Panel [address] [place] [address] [phone] BUN 52 mg/dL High 7-18 Creatinine 1.6 [...] Phosphatase 123 U/L High 45-117 Iron-Tibc-%Sat 12/12/2018 [facility] Serum Iron 55 g/dL Normal 50-170 [address] [place] [address] [phone] Total Iron Binding Capacity 357 g/dL Normal 250-450 Transferrin %Saturation 15 % Normal 12-57 Laboratory test 12/12/2018 [facility] Ferritin 142 ng/mL Normal 8-252 finding [address] [place] [address] [phone] Vitamin B12 And 12/12/2018 [facility] Vitamin B12 574 pg/mL Normal 193-[address] [place] [address] [phone] Folic Acid > 20.0 ng/mL High 3.1-17.5 Laboratory test 12/12/2018 [facility] Slide Review (SEE NOTE) 3 finding [address] [place] [address] [phone] Reticulocyte 10/29/2018 [facility] Retic 30.3 pg Normal 27.9 4 Count,Automated 134 [facility] Hemoglobin -37. [place] [address] 0 [phone] Retic % 4.7 % High 0.5-1.8 Absolute Retic 170 K/uL High 24-84 Immature Retic Fraction 29.9 % High 2.9-15.5 Laboratory test 10/29/2018 [facility] Vitamin 47.1 30.0-100.0 5 finding 134 [facility] D,25-Hydroxy ng/[place] [address] [phone] LDH 245 U/L Normal 84-246 Sedimentation Rate 67 mm/hr High 2-55 6 Vitamin B12 And 10/29/2018 [facility] Vitamin B12 714 pg/mL Normal 193-986 Folate [address] [place] [address] [phone] Folic Acid > 20.0 ng/mL High 3.1-17.5 Immunoglobulins 10/29/2018 [facility] Immunoglobulin [phone] A/G/M, QN, Ser [address] ASIF G,Quant,Serum mg/[place] [address] [phone] Immunoglobulin A 312 mg/dL 64-422 Immunoglobulin M 35 mg/dL 26-217 7 Laboratory test 10/29/2018 [facility] Ferritin 59 ng/mL Normal 8-252 finding [address] [place] [address] [phone] Iron-Tibc-%Sat 10/29/2018 [facility] Serum Iron 44 g/dL Low 50-170 [address] [place] [address] [phone] Total Iron Binding Capacity 444 g/dL Normal 250-450 Transferrin %Saturation 10 % Low 12-57 Comprehensive Metabolic 10/29/2018 [facility] Glucose 137 mg/dL High 74-106 Panel [address] [place] [address] [phone] BUN 71 mg/dL High 7-18 Creatinine 1.8 [...] 149 U/L High 45-117 CBC W/Automated 10/29/2018 [facility] White Blood 11.7 K/uL High 3.1-10.7 Diff [address] [place] [address] [phone] Red Blood Count 3.65 M/uL Low 3.90-5.40 [...] 40.4-72.8 Lymph % 12.0 % Low 20.0-42.0 [place] % 6.6 % Normal 4.3-13.2 Eo% 4.2 % Normal 0.0-6.6 Bas% 0.3 % Normal 0.0-1.1 Immature Grans 1.1 % Normal 0.0-5.0 NRBC % 0.0 /100WBC < 10/ 100 WBC Neut# 8.84 K/uL High 1.8-7.0 Lymph # 1.40 K/uL Normal 1.0-4.0 [place] # 0.77 K/uL Normal 0.3-0.9 Eos # 0.49 K/uL Normal 0.0-0.5 Baso # 0.04 K/uL Normal 0.0-0.1 Immature Grans Absolute 0.13 K/uL NRBC # 0.00 K/uL Comprehensive Metabolic 10/24/2018 [facility] Glucose 130 mg/dL High 74-106 9 Panel [address] [place], [place] [id number] [phone] BUN 92 mg/dL High 7-18 Creatinine 2.4 [...] 168 U/L High 45-117 CBS W/Automated 10/22/2018 [facility] White Blood 12.1 K/uL High 3.1-10.[address] Count [place], [place] [address] [phone] Red Blood Count 3.51 M/uL Low 3.90-5.40 [...] 40.4-72.8 Lymph % 10.0 % Low 20.0-42.0 [place] % 6.0 % Normal 4.3-13.2 Eo% 5.0 % Normal 0.0-6.6 Bas% 0.2 % Normal 0.0-1.1 Immature Grans 2.2 % Normal 0.0-5.0 NRBC % 0.2 /100WBC < 10/ 100 WBC Neut# 9.23 K/uL High 1.8-7.0 Lymph # 1.20 K/uL Normal 1.0-4.0 [place] # 0.72 K/uL Normal 0.3-0.9 Eos # 0.60 K/uL High 0.0-0.5 Baso # 0.03 K/uL Normal 0.0-0.1 Immature Grans Absolute 0.27 K/uL NRBC # 0.02 K/uL Comprehensive Metabolic 10/22/2018 [facility] Glucose 203 mg/dL High 74-[address] [place], [place] [address] [phone] BUN 85 mg/dL High 7-18 Creatinine 2.0 [...] Phosphatase 170 U/L High 45-117 Iron-Tibc-%Sat 10/22/2018 [facility] Serum Iron 77 g/dL Normal 50-170 [address] [place] [address] [phone] Total Iron Binding Capacity 450 g/dL Normal 250-450 Transferrin %Saturation 17 % Normal 12-57 Laboratory test 10/22/2018 [facility] Ferritin 99 ng/mL Normal 8-252 13 finding [address] [place] [address] [phone] Vitamin B12 And 10/22/2018 [facility] Vitamin B12 717 pg/mL Normal 193-986 Folate [address] [place] [address] [phone] Folic Acid > 20.0 ng/mL High 3.1-17.5 Laboratory test 10/22/2018 [facility] Vitamin 43.8 30.0-100.0 14 finding 134 [facility] D,25-Hydroxy ng/[place] [address] [phone] 1 C34.32 C34.31 2 Note: Persistent reduction [...] D deficiency has been defined by the [place] of Medicine and an Endocrine Society practice guideline as a level of serum 25-OH vitamin D less than 20 ng/mL (1,2). The Endocrine Society went on to further define vitamin D insufficiency as a level between 21 and 29 ng/mL (2). 1. IOM ([place] of [employer]). 2010. Dietary reference intakes for calcium and D. [place]: The National Academies Press. 2. Martin MF, Sara [place], Aaron STREET, et al. Evaluation, treatment, and prevention of vitamin D deficiency: an Endocrine Society clinical practice guideline. JCEM. 2010; 96(7):1911-30. Performed at: [facility] [address] [id number] Cell Liner: Eryn Balderas MD, Phone: [phone] This result was obtained with an ESR method that is not based on the standard Westergren Method. When comparing results obtained from the traditional Westergren ESR and this method it is important to refer to the reference range for each method. Method: Capillary Photometry 7 Performed at: [facility] [address] [id number] Cell Liner: Eryn Balderas MD, Phone: [phone] Note: Persistent reduction for 3 months [...] D deficiency has been defined by the [place] of [employer] and an Endocrine Society practice guideline as a level of serum 25-OH vitamin D less than 20 ng/mL (1,2). The Endocrine Society went on to further define vitamin D insufficiency as a level between 21 and 29 ng/mL (2). 1. IOM ([place] of [employer]). 2010. Dietary reference intakes for calcium and D. [place]: The National Academies Press. 2. Martin MF, Sara [place], Aaron STREET, et al. Evaluation, treatment, and prevention of vitamin D deficiency: an Endocrine Society clinical practice guideline. JCEM. 2010; 96(7):1911-30. Performed at: RN - [facility] [address] [id number] Cell Liner: Eryn Balderas MD, Phone: [phone] Procedures Date Code Description Status 01/14/2019 50797 EKG-Tracing And Report Completed 09/04/2018 88800 Echocardiogram Complete Completed 12/05/2010 [id number] Mammogram Completed 11/13/2010 [id number] Bone Mineral Density Test Completed Medical Devices Description No Information Available Encounters Type Date Location Provider Dx Diagnosis Office Visit 01/14/2019 Cardiology Office Ann Tarango R60.0 Localized edema 8:00a Kurt.VASQUEZ R94.31 Abnormal electrocardiogram [ECG] [EKG] E87.6 Hypokalemia R07.9 Chest pain, unspecified Office Visit 12/23/2018 11:30a Infusion Center Niecy Pacheco E61.1 Iron deficiency B., [employer] D64.9 Anemia, unspecified C34.32 Malignant neoplasm of [...] PA 12/23/2018 E61.1 Iron deficiency Niecy Pacheco, [employer] 12/23/2018 D64.9 Anemia, unspecified Niecy Pacheco, [employer] 12/23/2018 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, left Niecy Pacheco , [employer] bronchus or lung 10/29/2018 C34.32 Malignant neoplasm [...] N18.6 End stage renal disease Ananth Guy, [facility] 10/06/2018 J96.01 Acute respiratory failure with hypoxia Ananth Guy, [facility] 10/06/2018 I50.33 Acute on chronic diastolic Ananth Guy, [facility] (congestive) heart failure 10/06/2018 E87.5 Hyperkalemia Ananth Guy, [facility] 10/06/2018 N18.6 End stage renal disease Ananth Guy, [facility] 10/05/2018 J96.01 Acute respiratory failure with hypoxia [...] 10/02/2018 R60.0 Localized edema Tate Reynoso M.D., [facility] 10/02/2018 I95.89 Other hypotension Tate Reynoso M.D., [facility] 10/01/2018 J96.01 Acute respiratory failure with hypoxia [...] am - Ann Tarango PA at Cardiology Dxyctg2302/03/2019 1:30 pm - Niecy Pacheco NP at [facility] Ttlvno7201/27/2019 9:00 am - Oncology Nurse at Oncology Ntisxh3203/26/2019 9:20 am - Joanne Garzon PA at Nyilxurwwvx01/02/2019 - Ann Tarango, PAR60.0 Localized edemaNew Medication:Metolazone [...]
--- OUTSIDE RECORDS SUMMARY | 2019-02-15 13:48 | XMS REPORT | Continuity of Care Document ---
:1935 External Reference #:[id number] Author Name Ann Tarango PA (transmitted by agent of provider Zohra Quigley) Address [address], [address] [place] [address] Care Team Providers Name Role Phone Dea Johnson MD - Family Care Team Information Community Health Planning Director [phone] Medicine Problems Active Problems Provider Date Acquired [...] Monson, 03/21/2016 bedtime M.D. 10mg Tablets Pen [place] use to inject 400units Thao Monson, 01/30/2016 31G X 6 insulin 4x/day M.D. mm Misc Lancets Ultra Fine Test fs 4x/day 400units Jose MThao caraballo, 03/08/2015 M.D. Misc [facility] High Potency Once Daily Unknown 04/08/2014 Vitamin D 1000Unit Tablets Torsemide 2 po daily LeLisa 20mg [place], [employer] Tablets Sertraline HCL 1 po daily Le, Lisa 25mg [place], [employer] Tablets Klor-Con M20 1 po bid Sen [...] 11/03/2018 - 5mg Minutes Before MRichmond Friedman, [facility] 01/14/2019 Tablets Torsemide Dose Every Other Day Medications Administered in Office Medication SIG Qnty Indications Ordering Provider Date Vitamin B12 Injection 1000 Letty Blair, DO 11/13/2017 mcg/Ml Injection Theraputic Or Diagnostic Letty Blair, DO 11/13/2017 Injection Injection Depo-Medrol 20mg Annemarie Plasencia, [facility] 01/29/2013 Injection Immunizations Description No Information Available Vital Signs Date Vital Result Comment 01/14/2019 8:12am BP Systolic Sitting Left Arm 111 mmHg BP Diastolic Sitting Left Arm 56 mmHg Heart Rate 99 /min Respiratory Rate 16 /min Height 62 inches 5'2" Weight 210.00 lb BMI (Body Mass Index) 38.4 kg/m2 BSA (Body Surface Area) 1.95 m2 [place] body weight in kilograms 50 kg O2 % BldC Oximetry 96 % nc/4l 12/23/2018 9:12am BP Systolic 118 mmHg BP Diastolic 55 mmHg Body Temperature 98.3 F Heart Rate 107 /min Respiratory Rate 20 /min Weight 219.38 lb O2 % BldC Oximetry 91 % Pain Level 0 Results Test Date Facility Test Result H/L Range Note CBC 12/12/2018 [facility] White Blood 8.2 K/uL Normal 3.1-10.7 1 W/Automated [address] [place] [address] [phone] Red Blood Count 3.43 M/uL Low 3.90-5.40 [...] 40.4-72.8 Lymph % 14.7 % Low 20.0-42.0 [place] % 6.5 % Normal 4.3-13.2 Eo% 7.1 % High 0.0-6.6 Bas% 0.4 % Normal 0.0-1.1 Immature Grans 1.0 % Normal 0.0-5.0 NRBC % 0.0 /100WBC < 10/ 100 WBC Neut# 5.74 K/uL Normal 1.8-7.0 Lymph # 1.20 K/uL Normal 1.0-4.0 [place] # 0.53 K/uL Normal 0.3-0.9 Eos # 0.58 K/uL High 0.0-0.5 Baso # 0.03 K/uL Normal 0.0-0.1 Immature Grans Absolute 0.08 K/uL NRBC # 0.00 K/uL Comprehensive Metabolic 12/12/2018 [facility] Glucose 150 mg/dL High 74-106 Panel [address] [place] [address] [phone] BUN 52 mg/dL High 7-18 Creatinine 1.6 [...] Phosphatase 123 U/L High 45-117 Iron-Tibc-%Sat 12/12/2018 [facility] Serum Iron 55 g/dL Normal 50-170 [address] [place] [address] [phone] Total Iron Binding Capacity 357 g/dL Normal 250-450 Transferrin %Saturation 15 % Normal 12-57 Laboratory test 12/12/2018 [facility] Ferritin 142 ng/mL Normal 8-252 finding [address] [place] [address] [phone] Vitamin B12 And 12/12/2018 [facility] Vitamin B12 574 pg/mL Normal 193-[address] [place] [address] [phone] Folic Acid > 20.0 ng/mL High 3.1-17.5 Laboratory test 12/12/2018 [facility] Slide Review (SEE NOTE) 3 finding [address] [place] [address] [phone] Reticulocyte 10/29/2018 [facility] Retic 30.3 pg Normal 27.9 4 Count,Automated 134 [facility] Hemoglobin -37. [place] [address] 0 [phone] Retic % 4.7 % High 0.5-1.8 Absolute Retic 170 K/uL High 24-84 Immature Retic Fraction 29.9 % High 2.9-15.5 Laboratory test 10/29/2018 [facility] Vitamin 47.1 30.0-100.0 5 finding 134 [facility] D,25-Hydroxy ng/[place] [address] [phone] LDH 245 U/L Normal 84-246 Sedimentation Rate 67 mm/hr High 2-55 6 Vitamin B12 And 10/29/2018 [facility] Vitamin B12 714 pg/mL Normal 193-986 Folate [address] [place] [address] [phone] Folic Acid > 20.0 ng/mL High 3.1-17.5 Immunoglobulins 10/29/2018 [facility] Immunoglobulin [phone] A/G/M, QN, Ser [address] ASIF G,Quant,Serum mg/[place] [address] [phone] Immunoglobulin A 312 mg/dL 64-422 Immunoglobulin M 35 mg/dL 26-217 7 Laboratory test 10/29/2018 [facility] Ferritin 59 ng/mL Normal 8-252 finding [address] [place] [address] [phone] Iron-Tibc-%Sat 10/29/2018 [facility] Serum Iron 44 g/dL Low 50-170 [address] [place] [address] [phone] Total Iron Binding Capacity 444 g/dL Normal 250-450 Transferrin %Saturation 10 % Low 12-57 Comprehensive Metabolic 10/29/2018 [facility] Glucose 137 mg/dL High 74-106 Panel [address] [place] [address] [phone] BUN 71 mg/dL High 7-18 Creatinine 1.8 [...] 149 U/L High 45-117 CBC W/Automated 10/29/2018 [facility] White Blood 11.7 K/uL High 3.1-10.7 Diff [address] [place] [address] [phone] Red Blood Count 3.65 M/uL Low 3.90-5.40 [...] 40.4-72.8 Lymph % 12.0 % Low 20.0-42.0 [place] % 6.6 % Normal 4.3-13.2 Eo% 4.2 % Normal 0.0-6.6 Bas% 0.3 % Normal 0.0-1.1 Immature Grans 1.1 % Normal 0.0-5.0 NRBC % 0.0 /100WBC < 10/ 100 WBC Neut# 8.84 K/uL High 1.8-7.0 Lymph # 1.40 K/uL Normal 1.0-4.0 [place] # 0.77 K/uL Normal 0.3-0.9 Eos # 0.49 K/uL Normal 0.0-0.5 Baso # 0.04 K/uL Normal 0.0-0.1 Immature Grans Absolute 0.13 K/uL NRBC # 0.00 K/uL Comprehensive Metabolic 10/24/2018 [facility] Glucose 130 mg/dL High 74-106 9 Panel [address] [place], [place] [address] [phone] BUN 92 mg/dL High 7-18 Creatinine 2.4 [...] 168 U/L High 45-117 CBS W/Automated 10/22/2018 [facility] White Blood 12.1 K/uL High 3.1-10.[address] Count [place], [place] [address] [phone] Red Blood Count 3.51 M/uL Low 3.90-5.40 [...] 40.4-72.8 Lymph % 10.0 % Low 20.0-42.0 [place] % 6.0 % Normal 4.3-13.2 Eo% 5.0 % Normal 0.0-6.6 Bas% 0.2 % Normal 0.0-1.1 Immature Grans 2.2 % Normal 0.0-5.0 NRBC % 0.2 /100WBC < 10/ 100 WBC Neut# 9.23 K/uL High 1.8-7.0 Lymph # 1.20 K/uL Normal 1.0-4.0 [place] # 0.72 K/uL Normal 0.3-0.9 Eos # 0.60 K/uL High 0.0-0.5 Baso # 0.03 K/uL Normal 0.0-0.1 Immature Grans Absolute 0.27 K/uL NRBC # 0.02 K/uL Comprehensive Metabolic 10/22/2018 [facility] Glucose 203 mg/dL High 74-[address] [place], [place] [address] [phone] BUN 85 mg/dL High 7-18 Creatinine 2.0 [...] Phosphatase 170 U/L High 45-117 Iron-Tibc-%Sat 10/22/2018 [facility] Serum Iron 77 g/dL Normal 50-170 [address] [place] [address] [phone] Total Iron Binding Capacity 450 g/dL Normal 250-450 Transferrin %Saturation 17 % Normal 12-57 Laboratory test 10/22/2018 [facility] Ferritin 99 ng/mL Normal 8-252 13 finding [address] [place] [address] [phone] Vitamin B12 And 10/22/2018 [facility] Vitamin B12 717 pg/mL Normal 193-986 Folate [address] [place] [address] [phone] Folic Acid > 20.0 ng/mL High 3.1-17.5 Laboratory test 10/22/2018 [facility] Vitamin 43.8 30.0-100.0 14 finding 134 [facility] D,25-Hydroxy ng/[place] [address] [phone] 1 C34.32 C34.31 2 Note: Persistent reduction [...] D deficiency has been defined by the [place] of Medicine and an Endocrine Society practice guideline as a level of serum 25-OH vitamin D less than 20 ng/mL (1,2). The Endocrine Society went on to further define vitamin D insufficiency as a level between 21 and 29 ng/mL (2). 1. IOM ([place] [employer]). 2010. Dietary reference intakes for calcium and D. [place]: The National Academies Press. 2. Martin MF, Sara [place], Aaron STREET, et al. Evaluation, treatment, and prevention of vitamin D deficiency: an Endocrine Society clinical practice guideline. JCEM. 2010; 96(7):1911-30. Performed at: [facility] [address] [id number] Preboarder: Eryn Balderas MD, Phone: [phone] This result was obtained with an ESR method that is not based on the standard Westergren Method. When comparing results obtained from the traditional Westergren ESR and this method it is important to refer to the reference range for each method. Method: Capillary Photometry 7 Performed at: [facility] [address] [id number] Preboarder: Eryn Balderas MD, Phone: [phone] Note: Persistent reduction for 3 months [...] D deficiency has been defined by the [place] of [employer] and an Endocrine Society practice guideline as a level of serum 25-OH vitamin D less than 20 ng/mL (1,2). The Endocrine Society went on to further define vitamin D insufficiency as a level between 21 and 29 ng/mL (2). 1. IOM ([place] of [employer]). 2010. Dietary reference intakes for calcium and D. [place]: The National Academies Press. 2. Martin MF, [place], Aaron STREET, et al. Evaluation, treatment, and prevention of vitamin D deficiency: an Endocrine Society clinical practice guideline. JCEM. 2010; 96(7):1911-30. Performed at: RN - [facility] [address] [id number] Preboarder: Eryn Balderas MD, Phone: [phone] Procedures Date Code Description Status 01/14/2019 19981 EKG-Tracing And Report Completed 09/04/2018 95044 Echocardiogram Complete Completed 12/05/2010 [id number] Mammogram Completed 11/13/2010 [id number] Bone Mineral Density Test Completed Medical Devices Description No Information Available Encounters Type Date Location Provider Dx Diagnosis Office Visit 01/14/2019 Cardiology Office Ann Tarango R60.0 Localized edema 8:00a Kurt.VASQUEZ R94.31 Abnormal electrocardiogram [ECG] [EKG] E87.6 Hypokalemia R07.9 Chest pain, unspecified Office Visit 12/23/2018 11:30a Infusion Center Niecy Pacheco E61.1 Iron deficiency B., [employer] D64.9 Anemia, unspecified C34.32 Malignant neoplasm of [...] PA 12/23/2018 E61.1 Iron deficiency Niecy Pacheco, [employer] 12/23/2018 D64.9 Anemia, unspecified Niecy Pacheco, [employer] 12/23/2018 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, left Niecy Pacheco , [employer]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
--- OUTSIDE RECORDS SUMMARY | 2019-02-15 13:48 | XMS REPORT | Continuity of Care Document ---
:1935 External Reference #:[id number] Author Name Ann Tarango PA (transmitted by agent of provider Zohra Quigley) Address [address], [address] [place] [address] Care Team Providers Name Role Phone Dea Johnson MD - Family Care Team Information Orthopedic Surgeon Medicine Problems Active Problems Provider Date Acquired [...] Monson, 03/21/2016 bedtime M.D. 10mg Tablets Pen [place] use to inject 400units Thao Monson, 01/30/2016 31G X 6 insulin 4x/day M.D. mm Misc Lancets Ultra Fine Test fs 4x/day 400units Jose MThao caraballo, 03/08/2015 M.D. Misc [facility] High Potency Once Daily Unknown 04/08/2014 Vitamin D 1000Unit Tablets Torsemide 2 po daily LeLisa 20mg Galina, SENIOR WEB ANALYST Tablets Sertraline HCL 1 po daily Le, Lisa 25mg Galina, SENIOR WEB ANALYST Tablets Klor-Con M20 1 po bid Sen [...] 11/03/2018 - 5mg Minutes Before MRichmond Friedman, [facility] 01/14/2019 Tablets Torsemide Dose Every Other Day Medications Administered in Office Medication SIG Qnty Indications Ordering Provider Date Vitamin B12 Injection 1000 Letty Blair, DO 11/13/2017 mcg/Ml Injection Theraputic Or Diagnostic Letty Blair, DO 11/13/2017 Injection Injection Depo-Medrol 20mg Annemarie Plasencia, [facility] 01/29/2013 Injection Immunizations Description No Information Available Vital Signs Date Vital Result Comment 01/14/2019 8:12am BP Systolic Sitting Left Arm 111 mmHg BP Diastolic Sitting Left Arm 56 mmHg Heart Rate 99 /min Respiratory Rate 16 /min Height 62 inches 5'2" Weight 210.00 lb BMI (Body Mass Index) 38.4 kg/m2 BSA (Body Surface Area) 1.95 m2 [place] body weight in kilograms 50 kg O2 % BldC Oximetry 96 % nc/4l 12/23/2018 9:12am BP Systolic 118 mmHg BP Diastolic 55 mmHg Body Temperature 98.3 F Heart Rate 107 /min Respiratory Rate 20 /min Weight 219.38 lb O2 % BldC Oximetry 91 % Pain Level 0 Results Test Date Facility Test Result H/L Range Note CBC 12/12/2018 [facility] White Blood 8.2 K/uL Normal 3.1-10.7 1 W/Automated [address] [place] [address] [phone] Red Blood Count 3.43 M/uL Low 3.90-5.40 [...] 40.4-72.8 Lymph % 14.7 % Low 20.0-42.0 [place] % 6.5 % Normal 4.3-13.2 Eo% 7.1 % High 0.0-6.6 Bas% 0.4 % Normal 0.0-1.1 Immature Grans 1.0 % Normal 0.0-5.0 NRBC % 0.0 /100WBC < 10/ 100 WBC Neut# 5.74 K/uL Normal 1.8-7.0 Lymph # 1.20 K/uL Normal 1.0-4.0 [place] # 0.53 K/uL Normal 0.3-0.9 Eos # 0.58 K/uL High 0.0-0.5 Baso # 0.03 K/uL Normal 0.0-0.1 Immature Grans Absolute 0.08 K/uL NRBC # 0.00 K/uL Comprehensive Metabolic 12/12/2018 [facility] Glucose 150 mg/dL High 74-106 Panel [address] [place] [address] [phone] BUN 52 mg/dL High 7-18 Creatinine 1.6 [...] Phosphatase 123 U/L High 45-117 Iron-Tibc-%Sat 12/12/2018 [facility] Serum Iron 55 g/dL Normal 50-170 [address] [place] [address] [phone] Total Iron Binding Capacity 357 g/dL Normal 250-450 Transferrin %Saturation 15 % Normal 12-57 Laboratory test 12/12/2018 [facility] Ferritin 142 ng/mL Normal 8-252 finding [address] [place] [address] [phone] Vitamin B12 And 12/12/2018 [facility] Vitamin B12 574 pg/mL Normal 193-[address] [place] [address] [phone] Folic Acid > 20.0 ng/mL High 3.1-17.5 Laboratory test 12/12/2018 [facility] Slide Review (SEE NOTE) 3 finding [address] [place] [address] [phone] Reticulocyte 10/29/2018 [facility] Retic 30.3 pg Normal 27.9 4 Count,Automated [address] [facility] Hemoglobin -37. [place] [address] 0 [phone] Retic % 4.7 % High 0.5-1.8 Absolute Retic 170 K/uL High 24-84 Immature Retic Fraction 29.9 % High 2.9-15.5 Laboratory test 10/29/2018 [facility] Vitamin 47.1 30.0-100.0 5 finding [address] [facility] D,25-Hydroxy ng/[place] [address] [phone] LDH 245 U/L Normal 84-246 Sedimentation Rate 67 mm/hr High 2-55 6 Vitamin B12 And 10/29/2018 [facility] Vitamin B12 714 pg/mL Normal 193-986 Folate [address] [place] [address] [phone] Folic Acid > 20.0 ng/mL High 3.1-17.5 Immunoglobulins 10/29/2018 [facility] Immunoglobulin [phone] A/G/M, QN, Ser [address] G,Quant,Serum mg/[place] [address] [phone] Immunoglobulin A 312 mg/dL 64-422 Immunoglobulin M 35 mg/dL 26-217 7 Laboratory test 10/29/2018 [facility] Ferritin 59 ng/mL Normal 8-252 finding [address] [place] [address] [phone] Iron-Tibc-%Sat 10/29/2018 [facility] Serum Iron 44 g/dL Low 50-170 [address] [place] [address] [phone] Total Iron Binding Capacity 444 g/dL Normal 250-450 Transferrin %Saturation 10 % Low 12-57 Comprehensive Metabolic 10/29/2018 [facility] Glucose 137 mg/dL High 74-106 Panel [address] [place] [address] [phone] BUN 71 mg/dL High 7-18 Creatinine 1.8 [...] 149 U/L High 45-117 CBC W/Automated 10/29/2018 [facility] White Blood 11.7 K/uL High 3.1-10.7 Diff [address] [place] [address] [phone] Red Blood Count 3.65 M/uL Low 3.90-5.40 [...] 40.4-72.8 Lymph % 12.0 % Low 20.0-42.0 [place] % 6.6 % Normal 4.3-13.2 Eo% 4.2 % Normal 0.0-6.6 Bas% 0.3 % Normal 0.0-1.1 Immature Grans 1.1 % Normal 0.0-5.0 NRBC % 0.0 /100WBC < 10/ 100 WBC Neut# 8.84 K/uL High 1.8-7.0 Lymph # 1.40 K/uL Normal 1.0-4.0 [place] # 0.77 K/uL Normal 0.3-0.9 Eos # 0.49 K/uL Normal 0.0-0.5 Baso # 0.04 K/uL Normal 0.0-0.1 Immature Grans Absolute 0.13 K/uL NRBC # 0.00 K/uL Comprehensive Metabolic 10/24/2018 [facility] Glucose 130 mg/dL High 74-106 9 Panel [address] [place], [place] [id number] [phone] BUN 92 mg/dL High 7-18 Creatinine 2.4 [...] 168 U/L High 45-117 CBS W/Automated 10/22/2018 [facility] White Blood 12.1 K/uL High 3.1-10.[address] Count [place], [place] [id number] [phone] Red Blood Count 3.51 M/uL Low 3.90-5.40 [...] 40.4-72.8 Lymph % 10.0 % Low 20.0-42.0 [place] % 6.0 % Normal 4.3-13.2 Eo% 5.0 % Normal 0.0-6.6 Bas% 0.2 % Normal 0.0-1.1 Immature Grans 2.2 % Normal 0.0-5.0 NRBC % 0.2 /100WBC < 10/ 100 WBC Neut# 9.23 K/uL High 1.8-7.0 Lymph # 1.20 K/uL Normal 1.0-4.0 [place] # 0.72 K/uL Normal 0.3-0.9 Eos # 0.60 K/uL High 0.0-0.5 Baso # 0.03 K/uL Normal 0.0-0.1 Immature Grans Absolute 0.27 K/uL NRBC # 0.02 K/uL Comprehensive Metabolic 10/22/2018 [facility] Glucose 203 mg/dL High 74-[address] [place], [place] [address] [phone] BUN 85 mg/dL High 7-18 Creatinine 2.0 [...] Phosphatase 170 U/L High 45-117 Iron-Tibc-%Sat 10/22/2018 [facility] Serum Iron 77 g/dL Normal 50-170 [address] [place] [address] [phone] Total Iron Binding Capacity 450 g/dL Normal 250-450 Transferrin %Saturation 17 % Normal 12-57 Laboratory test 10/22/2018 [facility] Ferritin 99 ng/mL Normal 8-252 13 finding [address] [place] [address] [phone] Vitamin B12 And 10/22/2018 [facility] Vitamin B12 717 pg/mL Normal 193-986 Folate [address] [place] [address] [phone] Folic Acid > 20.0 ng/mL High 3.1-17.5 Laboratory test 10/22/2018 [facility] Vitamin 43.8 30.0-100.0 14 finding [address] [facility] D,25-Hydroxy ng/[place] [address] [phone] 1 C34.32 C34.31 2 Note: Persistent reduction [...] D deficiency has been defined by the [place] of [employer] and an Endocrine Society practice guideline as a level of serum 25-OH vitamin D less than 20 ng/mL (1,2). The Endocrine Society went on to further define vitamin D insufficiency as a level between 21 and 29 ng/mL (2). 1. IOM ([place] of Medicine). 2010. Dietary reference intakes for calcium and D. [place]: The National Academies Press. 2. Martin MF, Sara [place], [address], et al. Evaluation, treatment, and prevention of vitamin D deficiency: an Endocrine Society clinical practice guideline. JCEM. 2010; 96(7):1911-30. Performed at: [facility] [address] [id number] Flat Folding Machine Operator: Eryn Balderas MD, Phone: [phone] This result was obtained with an ESR method that is not based on the standard Westergren Method. When comparing results obtained from the traditional Westergren ESR and this method it is important to refer to the reference range for each method. Method: Capillary Photometry 7 Performed at: [facility] [address] [id number] Flat Folding Machine Operator: Eryn Balderas MD, Phone: [phone] Note: Persistent reduction for 3 months [...] D deficiency has been defined by the [place] of [employer] and an Endocrine Society practice guideline as a level of serum 25-OH vitamin D less than 20 ng/mL (1,2). The Endocrine Society went on to further define vitamin D insufficiency as a level between 21 and 29 ng/mL (2). 1. IOM ([place] of Medicine). 2010. Dietary reference intakes for calcium and D. [place]: The National Academies Press. 2. Martin MF, [place], [address], et al. Evaluation, treatment, and prevention of vitamin D deficiency: an Endocrine Society clinical practice guideline. JCEM. 2010; 96(7):1911-30. Performed at: RN - [facility] [address] [id number] Flat Folding Machine Operator: Eryn Balderas MD, Phone: [phone] Procedures Date Code Description Status 01/14/2019 12785 EKG-Tracing And Report Completed 09/04/2018 41567 Echocardiogram Complete Completed 12/05/2010 32850846 Mammogram Completed 11/13/2010 332824424 Bone Mineral Density Test Completed Medical Devices Description No Information Available Encounters Type Date Location Provider Dx Diagnosis Office Visit 01/14/2019 Cardiology Office Ann Tarango R60.0 Localized edema 8:00a Kurt.VASQUEZ R94.31 Abnormal electrocardiogram [ECG] [EKG] E87.6 Hypokalemia R07.9 Chest pain, unspecified Office Visit 12/23/2018 11:30a Infusion Center Niecy Pacheco E61.1 Iron deficiency B., SENIOR WEB ANALYST D64.9 Anemia, unspecified 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, left bronchus or lung Office Visit 10/29/2018 12:30p Oncology Office oRssy C34.32 Malignant Letty, DO neoplasm of lower [...] PA 12/23/2018 E61.1 Iron deficiency Niecy Pacheco, SENIOR WEB ANALYST 12/23/2018 D64.9 Anemia, unspecified Niecy Pacheco, SENIOR WEB ANALYST 12/23/2018 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, left Niecy Pacheco , SENIOR WEB ANALYST bronchus or lung 10/29/2018 C34.32 Malignant neoplasm [...] N18.6 End stage renal disease Ananth Guy, [facility] 10/06/2018 J96.01 Acute respiratory failure with hypoxia Ananth Guy, [facility] 10/06/2018 I50.33 Acute on chronic diastolic Ananth Guy, [facility] (congestive) heart failure 10/06/2018 E87.5 Hyperkalemia Ananth Guy, [facility] 10/06/2018 N18.6 End stage renal disease Ananth Guy, [facility] 10/05/2018 J96.01 Acute respiratory failure with [...] am - Ann Tarango PA at Cardiology Twiflq6802/03/2019 1:30 pm - Niecy Pacheco NP at [facility] Yeejcx0701/27/2019 9:00 am - Oncology Nurse at Oncology Rzlnop8903/26/2019 9:20 am - [facility] - Ann Tarango, PAR60.0 Localized edemaNew Medication:Metolazone [...]
[2019-02-15 14:12] VITALS: BP 112/56
--- NOTE | 2019-02-15 14:25 | UC ---
General HPI - HPI Summary HPI Summary: patient wheelchair bound and has a history of lung cancer--today she developed left thigh/groin paion with out injury---states she does not fell more SOB than usually however SATS are lower than previously documented 91% on 6l NC. - History of Current Complaint Chief Complaint: UCLowerExtremity Stated Complaint: LEFT LEG PAIN Time Seen by Provider: 02/15/19 14:16 Hx Obtained From: Patient Onset/Duration: Sudden Onset Timing: Constant Onset Severity: Moderate Current Severity: Moderate - Allergy/Home Medications Allergies/Adverse Reactions: Allergies Allergy/AdvReac Type Severity Reaction Status Date / Time nitrofurantoin Allergy Unknown Verified 02/15/19 14:01 Reaction Details oxycodone Allergy See Comment Verified 02/15/19 14:01 tape Allergy Unknown Uncoded 01/27/16 14:16 Reaction Details Home Medications: Home Medications guaiFENesin [Mucinex For Kids] 2 tab PO Q4H PRN 02/15/19 [History Confirmed 07/01] PMH/Surg Hx/FS Hx/Imm Hx Previously Healthy: No Endocrine History: Diabetes, Dyslipidemia Respiratory History: COPD Cancer History: Lung Cancer - Surgical History Surgical History: Yes Surgery Procedure, Year, and Place: B/L KNEE REPLACEMENTS. D & C. right hip replacement - Family History Known Family History: Positive: Cardiac Disease - Social History Occupation: Disabled Lives: With Family Alcohol Use: None Substance Use Type: None Smoking Status (MU): Former Smoker When Did the Patient Quit Smoking/Using Tobacco: 1989 Review of Systems All Other Systems Reviewed And Are Negative: Yes Constitutional: Positive: Negative Skin: Positive: Negative Eyes: Positive: Negative ENT: Positive: Negative Respiratory: Positive: Negative Cardiovascular: Positive: Negative Gastrointestinal: Positive: Negative Genitourinary: Positive: Negative Motor: Positive: Negative Neurovascular: Positive: Negative Musculoskeletal: Positive: Myalgia - pain left groin/inner thigh Neurological: Positive: Negative Psychological: Positive: Negative Is Patient Immunocompromised?: No Physical Exam Triage Information Reviewed: Yes Appearance: Well-Appearing, No Pain Distress, Obese Vital Signs: Initial Vital Signs Temp 98 F 02/15/19 14:07 Pulse 102 02/15/19 14:07 Resp 22 02/15/19 14:07 BP 112/56 02/15/19 14:07 Pulse Ox 91 02/15/19 14:07 Vital Signs Reviewed: Yes Eye Exam: Normal Eyes: Positive: Conjunctiva Clear ENT Exam: Normal ENT: Positive: Normal ENT inspection, Hearing grossly normal, Trismus, Muffled voice, Hoarse voice Dental Exam: Normal Neck exam: Normal Neck: Positive: Supple, Nontender, No Lymphadenopathy Respiratory Exam: Normal Respiratory: Positive: Chest non-tender, Lungs clear, Normal breath sounds, No respiratory distress, No accessory muscle use Cardiovascular Exam: Normal Cardiovascular: Positive: RRR, No Murmur, Pulses Normal, Brisk Capillary Refill Musculoskeletal Exam: Normal - to patients baseline Musculoskeletal: Positive: Strength Intact, ROM Intact, Edema @ - chronic bilateral lower leg Neurological Exam: Normal Neurological: Positive: Alert, Muscle Tone Normal Psychological Exam: Normal Skin Exam: Normal Course/Dx - Course Course Of Treatment: will send patient directly to ED for assessment of DVT--patient refused ambulance. - Diagnoses Provider Diagnosis: Acute pain of left thigh Discharge ED - Sign-Out/Discharge Documenting (check all that apply): Patient Departure All imaging exams completed and their final reports reviewed: No Studies - Discharge Plan Condition: Guarded Disposition: HOME-RECOMMEND TO ED Referrals: Dea Johnson MD [Primary Care Provider] - Additional Instructions: Please go directly to the emergency department for a further assessment of you thigh/groin pain - Billing Disposition and Condition Condition: GUARDED Disposition: Home-Recommend to ED
== END 2019-02-15 14:30 | disposition home health service (06) ==
LOC: UCCORT 13:32
DX: M79.652 Pain in left thigh (principal); J44.9 Chronic obstructive pulmonary disease, unspecified; E11.9 Type 2 diabetes mellitus without complications; Z99.3 Dependence on wheelchair; Z88.5 Allergy status to narcotic agent; Z91.09 Other allergy status, other than to drugs and biological substances; Z88.1 Allergy status to other antibiotic agents; Z85.118 Personal history of other malignant neoplasm of bronchus and lung; Z96.653 Presence of artificial knee joint, bilateral; Z96.641 Presence of right artificial hip joint; Z87.891 Personal history of nicotine dependence
CPT/HCPCS: 99212; G0463

== ENCOUNTER 2019-03-23 13:52 | Emergency (ER) | payer MEDICARE ==
--- NOTE | 2019-03-23 14:14 | UC ---
Skin Complaint HPI - HPI Summary HPI Summary: Patient is an 83yo female with PMH of COPD and diabetes presenting with for complaint of left index finger redness, swelling, tenderness 6 days. Patient is her symptoms slowly progressed over the past 6 days. Patient denies injury or trauma to the area. Does note that she often uses that finger to test her blood glucose at home. Notes decreased ROM d/t pain and swelling. Denies pain at rest. Denies drainage and bleeding. Denies fever and chills. Denies n/ v. Denies h/o MRSA infection. Patient also on 3L of O2. - History of Current Complaint Stated Complaint: L INDEX FINGER SKIN COMP Hx Obtained From: Patient Onset/Duration: Gradual Onset, Lasting Days Current Severity: Severe Pain Intensity: 10 Pain Scale Used: 0-10 Numeric - Allergy/Home Medications Allergies/Adverse Reactions: Allergies Allergy/AdvReac Type Severity Reaction Status Date / Time acetaminophen [From Percocet] Allergy See Comment Verified 03/23/19 14:07 nitrofurantoin Allergy Unknown Verified 03/23/19 14:07 Reaction Details oxycodone [From Percocet] Allergy See Comment Verified 03/23/19 14:07 tape Allergy Unknown Uncoded 03/23/19 14:07 Reaction Details Home Medications: Home Medications Fluticasone DISKUS 100 MCG(NF) [Flovent Diskus 100 MCG(NF)] 1 puff INH BID 03/23 [History Confirmed 03/23/19] Insulin Aspart [Novolog] 16 units SUBCUT TID 03/23/19 [History Confirmed ] Metolazone TAB* [Zaroxolyn TAB*] 1 tab PO EVERY OTHER DAY 03/23/19 [History Confirmed 03/23/19] Mirabegron (NF) [Myrbetriq (NF)] 50 mg PO DAILY 03/23/19 [History Confirmed 01/01] Umeclidin/Vilant 62.5 MDI(NF) [ANORO 62.5/25 Ellipta DEVICE (NF)] 1 inh INH DAILY 03/23/19 [History Confirmed 03/23/19] PMH/Surg Hx/FS Hx/Imm Hx Endocrine History: Diabetes, Dyslipidemia Cardiovascular History: Hypertension - Surgical History Surgical History: Yes Surgery Procedure, Year, and Place: B/L KNEE REPLACEMENTS. D & C. right hip replacement - Family History Known Family History: Positive: Cardiac Disease - Social History Lives: With Family Alcohol Use: None Substance Use Type: None Smoking Status (MU): Former Smoker When Did the Patient Quit Smoking/Using Tobacco: 1989 Review of Systems All Other Systems Reviewed And Are Negative: No Constitutional: Positive: Negative. Negative: Fever, Chills Skin: Positive: Other - redness of L index finger Respiratory: Positive: Negative Cardiovascular: Positive: Negative Gastrointestinal: Negative: Vomiting, Nausea Musculoskeletal: Positive: Arthralgia - L index finger, Decreased ROM - L index finger d/t pain and swelling, Edema - L index finger Neurological: Negative: Paresthesia, Numbness Physical Exam Triage Information Reviewed: Yes Appearance: Well-Appearing, No Pain Distress, Well-Nourished Vital Signs: Initial Vital Signs Temp 97.1 F 03/23/19 14:03 Pulse 113 03/23/19 14:03 Resp 20 03/23/19 14:03 BP 111/31 03/23/19 14:03 Pulse Ox 92 03/23/19 14:03 Vital Signs (72 hours) 03/23/19 03/23/19 14:03 14:38 Temperature 97.1 F 97.7 F Pulse Rate 113 109 Respiratory 20 20 Rate Blood Pressure 111/31 108/67 (mmHg) O2 Sat by Pulse 92 95 Oximetry Vital Signs Reviewed: Yes Eyes: Positive: Conjunctiva Clear ENT: Positive: Hearing grossly normal Neck: Positive: Supple Respiratory Exam: Normal Respiratory: Positive: Lungs clear, Normal breath sounds, No respiratory distress, No accessory muscle use. Negative: Crackles, Rhonchi, Stridor, Wheezing Cardiovascular Exam: Other - regular rhythm Cardiovascular: Positive: Tachycardia Musculoskeletal: Positive: ROM Limited @ - L index finger flexion, Edema @ - proximal phalanx of L index finger, Other: - pain with palpation of distal phalanx of L index finger Neurological Exam: Other - sensation grossly intact Neurological: Positive: Alert Psychological: Positive: Age Appropriate Behavior Skin: Positive: Other - erythema and warmth noted of distal phalanx of L index finger. no drainage or bleeding noted. no paronychia Course/Dx - Course Course Of Treatment: Discussed cellulitis with patient and treated with keflex. Instructed to continue with symptomatic treatment as well. nstructed to go to ED witha ny ne or worsening symptoms. Patient voiced understanding and agreed with treatment plan. Patient BP low initially 111/31. Recheck was 108/67. Looked at past visits and BP runs similar. Patient afebrile and in no respiratory or pain distress. - Diagnoses Provider Diagnosis: Cellulitis of left index finger Discharge ED - Sign-Out/Discharge Documenting (check all that apply): Patient Departure All imaging exams completed and their final reports reviewed: No Studies - Discharge Plan Condition: Stable Disposition: HOME Prescriptions: Cephalexin CAP* [Keflex CAP*] 500 mg PO TID #21 cap Patient Education Materials: Cellulitis (ED) Referrals: Dea Johnson MD [Primary Care Provider] - If Needed Additional Instructions: As discussed, take Keflex as prescribed for the treatment of your skin infection. Continue to apply warm compresses 2-3 times daily. You may take ibuprofen as directed for pain relief. Go to the emergency room if you experience fever, increasing redness and warmth to the area, drainage, or nausea and vomiting. - Billing Disposition and Condition Condition: STABLE Disposition: Home - Attestation Statements Provider Attestation: This patient was not seen by me. I was available for consult. Chart reviewed. VICTORIA
--- OUTSIDE RECORDS SUMMARY | 2019-03-23 14:17 | XMS REPORT | Summary of Care ---
:1935 Author Organization [facility] Address [address] [place] [address] Care Team Providers Name Role Phone Dea Johnson MD Primary Care Provider Reason for Visit Auth/Cert Status Reason Specialty Diagnoses / Referred By Referred To Contact Procedures Contact Diagnoses Mediastinal adenopathy [R59.0] Divya Lubin MD [address] [place] [address] 2nd [address] [place] [address] Email: [email or web address] Encounter Details Date Type Department Care Team Description 03/20/2019 Hospital Encounter GI Services Divya Lubin MD [address] [place] [address] Floor [address] [place] [address] [phone] Allergies Active Allergy Reactions Severity Noted Date Comments Adhesive Tape Itching, Rash Low 07/08/2015 Nitrofuran Derivatives Nausea And Vomiting, 07/08/2015 shakes Other (See Comments) Oxycodone-Acetaminophen Other (See Comments) 07/08/2015 "out of it" not with reality cannot remember much documented as of this encounter (statuses as of 03/20/2019) Medications Medication Sig Dispensed Refills Start Date End Date Status CRANBERRY PO Take 1 capsule by 0 Active mouth Two Times Daily. Multiple Vitamin Take 1 capsule by 0 Active (MULTIVITAMIN) capsule mouth daily. aspirin 81 MG tablet Take 81 mg by 0 Active mouth nightly ibuprofen Take 400 mg by 0 Active (ADVIL,MOTRIN) 200 MG mouth nightly. tablet estradiol (ESTRACE Using fingertip, 42.5 g 12 06/20/2016 Active VAGINAL) 0.1 MG/GM place pea-size vaginal cream amount in vagina nightly Additional information Patient not taking. Reported on 03/11/2019 9:42 AM Oxygen GAS Use as directed. 0 Active albuterol (PROAIR HFA) Inhale 2 puffs into 0 Active 108 (90 Base) MCG/ACT the lungs every 6 inhaler (six) hours Blood Glucose Monitoring Use as directed. 1 each 0 03/21/20 Active Suppl (FREESTYLE FREEDOM Use as directed up 17 LITE) w/Device to 8 times daily. E KITIndications: Type 2 11.65 diabetes mellitus with hyperglycemia, with long-term current use of insulin Fluticasone-Salmeterol Inhale 1 puff into 0 Active (ADVAIR DISKUS) 250-50 the lungs daily MCG/DOSE AEPB umeclidinium-vilanterol Inhale 1 puff into 0 Active (ANORO ELLIPTA) 62.5-25 the lungs daily MCG/INH inhaler Ascorbic Acid (VITAMIN C Take by mouth daily 0 Active PO) LACTOBACILLUS PO Take by mouth 0 Active FREESTYLE LITE test Use as directed to 600 each 1 01/07/20 Active strip check blood glucose 18 6 times daily. Dx E11.65 Probiotic Product Take by mouth daily 0 Active (PROBIOTIC DAILY PO) acetaminophen, TYLENOL, Take 650 mg by 0 Active tablet (MAPAP) 325 MG mouth every 6 (six) tablet hours as needed for Pain trazodone (DESYREL) 50 nightly 0 02/18/20 Active MG tablet 18 ARNUITY ELLIPTA 200 daily 0 05/07/19 Active MCG/ACT AEPB 19 FLOVENT DISKUS 100 daily 0 04/30/19 Active MCG/BLIST AEPB 19 Insulin Pen Needle 31G X Use as directed. 500 each 3 07/01/19 Active 8 MM MISC 5/day 19 Misc. Devices (DURABLE Use as directed. DM shoes with 3 insoles 1 each 0 Active MEDICAL EQUIPMENT SEE 19 SIG) MISC DX: DM with peripheral Neuropathy Misc. Devices MISC Use as directed. Dx: Lymphedeam 2 each 5 07/31/19 Active Rx: [place] 4000 wrap, dispense 2 19 torsemide (DEMADEX) 20 2 tabs per day per 0 08/12/19 Active MG tablet pt 19 pravastatin (PRAVACHOL) 10 mg daily 0 09/18/19 Active 20 MG tablet 19 insulin aspart (NOVOLOG Inject as needed 195 mL 1 11/14/19 Active FLEXPEN) 100 UNIT/ML daily per sliding 19 SOPN penIndications: scale. Max Daily Type 2 diabetes mellitus Dose not to exceed with hyperglycemia, with 210 units inclusive long-term current use of of priming and insulin titration. Dx code: E11.65 trospium (SANCTURA) 20 Take 20 mg by mouth 0 Active MG tablet Two Times Daily cephalexin (KEFLEX) 250 Take 1 capsule by 90 capsule 3 02/03/20 Active MG capsule mouth daily 19 MYRBETRIQ 50 MG TB24 Take 1 tablet by 90 tablet 3 02/03/20 Active mouth daily 19 Potassium (POTASSIMIN Take 20 mg by mouth 0 Active PO)Indications: takes 1 Indications: takes tab in AM and 2 tabs in 1 tab in AM and 2 PM tabs in PM [place]-3 Fatty Acids Take 1 tablet by 0 03/20/20 Discontinued (OMEGA 3 PO) mouth daily. 19 Cholecalciferol (VITAMIN Take 1,000 mg by 0 03/20/20 Discontinued D-3 PO) mouth daily 19 diphenhydrAMINE-APAP, Take 2 tablets by 0 03/20/20 Discontinued sleep, (TYLENOL PM EXTRA mouth nightly 19 STRENGTH PO) documented as of this encounter (statuses as of 03/20/2019) Active Problems Problem Noted Date Primary cancer of bronchus of left lower lobe 11/25/2017 Cancer Staging: Clinical stage from 11/25/2017: Stage IA3 (cT1c, cN0, cM0) - Signed by Fritz Tipton MD on 11/26/2017 Primary cancer of right lower lobe of lung 11/25/2017 Cancer Staging: Clinical stage from 11/25/2017: Stage IA2 (cT1b, cN0, cM0) - Signed by Fritz Tipton MD on 11/26/2017 Type 2 diabetes mellitus with hyperglycemia, with long-term current use of 12/2017 insulin Gross hematuria 11/07/2015 Recurrent UTI 07/08/2015 Urge incontinence 07/08/2015 Vaginal atrophy 07/08/2015 Insulin long-term use 07/19/2006 Last Assessment & Plan: Insulin Injection Record Celine Anand 01/12/2019 Meal Time Insulin Type: Novolog Blood Glucose (Mg/dl) Breakfast Lunch Supper Day Snack Correction for High Glucose if not Eating Meal Correction for High Glucose at Bedtime Less than 70 Treat low blood sugar with 15 grams carbohydrate (example: 4 ounces juice or 4 glucose tablets), recheck in 15 minutes and repeat treatment until above 70, then take insulin in 70 - 90 row. 70 - 90 2 2 4 91 - 130 32 30 34 131 - 150 34 32 36 151 - 200 36 34 38 201 - 250 38 36 38 251 - 300 40 38 40 301 - 350 42 40 42 351 - 400 44 42 44 401 - 450 46 44 46 Over 450 46 44 48 Do not give mealtime or correction insulin more frequently than every 3 hours. Stop Novolog before bed If eating a smaller meal, take 2-4 units less of Novolog Long-acting Insulin Lantus; 30 units Once daily Carb consistent diet Exercise as tolerated . High potassium Chronic kidney disease Diabetes COPD (chronic obstructive pulmonary disease) Lung cancer documented as of this encounter (statuses as of 03/20/2019) Resolved Problems Problem Noted Date Resolved Date Urinary tract infection 12/26/2017 documented as of this encounter (statuses as of 03/20/2019) Social History Tobacco Use Types Packs/Day Years Used Date Former Smoker Cigarettes 2.5 40 Quit: 04/15/1989 Smokeless Tobacco: Never Used Alcohol Use Drinks/Week oz/Week Comments No 0 Standard drinks or equivalent 0.0 Sex Assigned at Date Recorded Female 03/18/2019 11:36 AM EST Job Start Date Occupation Industry Not on file Not on file Not on file Travel History Travel Start Travel End No recent travel history available. documented as of this encounter Last Filed Vital Signs Vital Sign Reading Time Taken Comments Blood Pressure 102/50 03/20/2019 2:40 PM EST Pulse 101 03/20/2019 2:40 PM EST Temperature 36.4 03/20/2019 11:26 AM EST C (97.5 F) Respiratory Rate 16 03/20/2019 2:40 PM EST Oxygen Saturation 91% 03/20/2019 2:40 PM EST Inhaled Oxygen Concentration - - Weight 89.8 kg (198 lb) 03/20/2019 11:26 AM EST Height 157.9 cm (5' 2.17") 03/20/2019 11:26 AM EST Body Mass Index 36.02 03/20/2019 11:26 AM EST documented in this encounter Plan of Treatment Date Type Specialty Care Team Description 03/24/2019 Appointment Radiology 03/25/2019 Office Visit Hematology and Oncology Michael Garcia NP [address] [place] [address] 04/13/2019 Office Visit Endocrinology Tiffanie Sagastume PA [address] [place] [address] 04/13/2019 Office Visit Endocrinology Gregor Lucio DPM [address] [place] [address] 07/13/2019 Office Visit Endocrinology Gregor Lucio DPM [address] [place] [address] 07/13/2019 Office Visit Endocrinology Kory Conrad MD [address] [place] [address] 07/29/2019 Appointment Radiology 08/03/2019 Office Visit Urology Johana Jeronimo MD [address] [place] [address] 10/13/2019 Office Visit Endocrinology Preethi Felipe NP [address] [place] [address] 10/13/2019 Office Visit Endocrinology Gregor Lucio DPM [address] [place] [address] Name Type Priority Associated Date/Time Diagnoses Cytology, Non Pathology and Routine 03/20/2019 3:01 Gynecological Cytology PM EST Fine Needle Aspirate Pathology and Routine 03/20/2019 3:06 Cytology PM EST Fine Needle Aspirate Pathology and Routine 03/20/2019 3:14 Cytology PM EST Name Type Priority Associated Order Schedule Diagnoses POCT glucose, docked Point of Care Routine Once for 1 (if diabetic) Testing-Docked Occurrences Device starting 03/20/2019 until 03/20/2019 Cytology, Non Pathology and Routine Once for 1 Gynecological Cytology Occurrences starting 03/20/2019 until 03/20/2019 Fine Needle Aspirate Pathology and Routine Once for 1 Cytology Occurrences starting 03/20/2019 until 03/20/2019 Fine Needle Aspirate Pathology and Routine Once for 1 Cytology Occurrences starting 03/20/2019 until 03/20/2019 Cytology, Non Pathology and Routine Once for 1 Gynecological Cytology Occurrences starting 03/20/2019 until 03/20/2019 Fine Needle Aspirate Pathology and Routine Once for 1 Cytology Occurrences starting 03/20/2019 until 03/20/2019 Fine Needle Aspirate Pathology and Routine Once for 1 Cytology Occurrences starting 03/20/2019 until 03/20/2019 Health Maintenance Due Date Last Done Comments MMR Vaccines (1 of 1 - 1936 Standard series) DTaP,Tdap,and Td Vaccines 09/25/1943 (1 - Tdap) Diabetic Foot Exam 1954 Dilated Retinal Exam 1954 Urine Microalbumin 1954 Hepatitis B Vaccines (1 of 09/25/1955 3 - Risk 3-dose series) Zoster Vaccines (1 of 2) 1986 Osteoporosis Screening 2 yr 2001 Pneumococcal Vaccine: 65+ 2001 Years (1 of 2 - PCV13) Lipid Disorder Screening 10/17/2017 10/17/2016 Influenza Vaccine 01/13/2019 Hemoglobin A1c 04/01/2019 09/30/2018, 09/05/2018, 06/30/2018, Additional history exists HIB Vaccines Aged Out No longer eligible based on patient's age to complete this topic Hepatitis A Vaccines Aged Out No longer eligible based on patient's age to complete this topic IPV Vaccines Aged Out No longer eligible based on patient's age to complete this topic Pneumococcal Vaccine: Aged Out No longer eligible Pediatrics (0 to 5 Years) based on patient's age and At-Risk Patients (6 to to complete this topic 64 Years) Varicella Vaccines Aged Out No longer eligible based on patient's age to complete this topic documented as of this encounter Procedures Procedure Name Priority Date/Time Associated Comments Diagnosis POCT GLUCOSE, DOCKED Routine 03/20/2019 12:02 Results for this PM EST procedure are in the results section. BRONCHOSCOPY REPORT 03/20/2019 12:00 AM EST documented in this encounter Results POCT glucose, docked (03/20/2019 12:02 PM EST) POC Glucose 131 70 - 140 mg/dL [facility] POC Specimen Whole Blood Performing Organization Address City/State/Zipcode Phone Number POINT OF CARE TEST [address] [place], [place] [id number] [place] [address] POC [address] [place] [address] documented in this encounter Administered Medications Medication Order MAR Action Action Date Dose Rate Site sodium chloride (preservative free) 0.9 % flush 3 mL 3 mL, Intravenous, Every 8 hours Standard (3 times per day), First dose on Sat03/20/19 at 1700, For 30 days, Pre-op, Saline Lock. Flush Q8H and after each use to Saline Lock., sodium chloride (preservative free) 0.9 % flush 3 mL 3 mL, Intravenous, PRN, Line Care, Starting Sat03/20/19 at 1158, For 30 days, Pre-op, Saline Lock. Flush Q8H and after each use to Saline Lock., documented in this encounter
--- OUTSIDE RECORDS SUMMARY | 2019-03-23 14:17 | XMS REPORT | Continuity of Care Document ---
:1935 External Reference #:[id number] Author Name Chelita Art MD Address [address] [place] [address] Care Team Providers Name Role Phone Dea Johnson MD - Family Care Team Information Cafe Lead Medicine Problems Active Problems Provider Date Acquired [...] a former smoker Unknown Smoking Status Reviewed: 03/03/19 Patient is a former smoker Enjoy Exercising Does not enjoy exercising Exercise Type/Frequency Does not exercise Tattoo/Piercing Pierced ears Smoke Alarms Yes Allergies, Adverse Reactions, Alerts Active Allergies Reaction Severity Comments Date Tape rash, itching 10/12/2009 Oxycodone 04/04/2014 Nitrofurantoin 05/18/2015 Metolazone itching 01/30/2017 Percocet 03/24/2018 Inactive Allergies NKDA 08/01/2009 Medications Active Medications SIG Qnty Indications Ordering Provider Date Metolazone take 1 tab (30 30tabs R60.0 Tate Reynoso 02/18/2019 2.5mg minutes before am Richmond Bangura, FACC Tablets torsemide) daily I50.32 Oxygen remove home fill J44.9 Yusuf, 02/04/2019 oxygen system. MD Jeffy Provide 02 cylinders for portability. Flovent Diskus inhale one puff by 3months Frederick Rossi MD 04/01/2018 mouth twice a day 100mcg/Blist Aerosol (rinse mouth after use) Acapella please provide 1 1units Frederick [facility]: [facility]d use three times a day as needed to clear secretions. Take 10 breaths each time. Proair HFA 2 inhalations every 25.5gm Frederick Rossi MD 03/01/2017 4 hours as needed 108(90Base) mcg/Act for shortness of Aerosol breath. Unifine Pentips Ruben Use To Inject 4units Thao Monson M.D. 02/18/2017 6mm 100'S 31G / Insulin Four Times A 31G Day / Oxygen please provide oxy Yusuf, 01/28/2017 pendant to assist in MD Jeffy maintaining o2 saturations between 89-95% dx: copd Anoro Ellipta Use 1 Inhalation 180unit J44.9 Yusuf, 10/31/2016 Once Daily s MD Jeffy 62.5-25mcg/Inh Aerosol Lancets Freestyle Test Finger Stick 4units Thao Monson M.D. 04/23/2016 100'S 28G Four Times A Day 28G Freestyle Lite Test test blood sugar 4x 600unit Rickie Abarca, 04/05 a day s Strips Pravastatin Sodium 1/2 by mouth at 90tabs E78.2 Thao Monson M.D. 2015 bedtime 10mg Tablets Pen [place] use to inject 400unit Thao Monson M.D. 01/30/2016 31G X 6 insulin 4x/day s mm Misc Lancets Ultra Fine Test fs 4x/day 400unit Thao Monson M.D. 03/08/2015 s Misc Pantoprazole Sodium 1 by mouth every day Unknown 40mg Tablets DR Sucralfate Unknown 1gm Tablets Albuterol Sulfate nebulized every 4-6 Unknown hours as needed (2.5mg/3ML) 0.083% Nebulizer Ipratropium every 6 hours as Unknown [place]/Albuterol needed Sulfate 0.5-2.5(3)mg/3ML Solution Promethazine HCL take 1 tablet by Unknown 25mg mouth every 12 hours Tablets as needed for nausea (maximum daily dose =2) Advil PM Unknown 200-25mg Capsules Klor-Con M20 1 by mouth twice 120tabs Tate Reynoso, 20Meq daily, extra tablet M.D., FACC Tablets ER on days where metolazone is used Torsemide 2 po daily Lisa Nam, LINSEY 20mg Tablets Cephalexin 1 po daily Unknown 250mg Capsules [...] Flexpen sliding scale. Unknown 100Unit/ML Solution Pen-Inject Multivitamins 1 po qd Unknown Tablets Cranberry Juice 2 tabs twice a day Unknown Extract 1000mg Capsules History Medications Azithromycin take two tablets 6tabs Yusuf, 02/04/2019 - 250mg today, then one MD Jeffy Unknown Tablets a day for the next four days. Metolazone take 1 tab (30 30tabs R60.0 Chelita Art MD 01/14/2019 - 2.5mg minutes before Unknown Tablets torsemide) prn edema or weight gain >2-3 lbs Metolazone Take 1 Tablet 30 90tabs R60.0 Tate Reynoso, 11/03/2018 - 5mg Minutes Before M.D., FACC 01/14/2019 Tablets Torsemide Dose Every Other Day Mucinex Twice a day as 60tabs J44.9 Frederick Rosis MD 2018 - 600mg needed for Unknown Tablets ER 12HR cough. Medications Administered in Office Medication SIG Qnty Indications Ordering Provider Date Vitamin B12 Injection 1000 Letty Blair DO 11/13/2017 mcg/Ml Injection Theraputic Or Diagnostic Letty Blair DO 11/13/2017 Injection Injection Depo-Medrol 20mg Annemarie Plasencia [facility] 01/29/2013 Injection Immunizations Description No Information Available Vital Signs Date Vital Result Comment 03/03/2019 1:32pm BP Systolic Sitting Left Arm 110 mmHg BP Diastolic Sitting Left Arm 58 mmHg Heart Rate 82 /min Respiratory Rate 20 /min Height 62 inches Weight 196.00 lb BMI (Body Mass Index) 35.8 kg/m2 BSA (Body Surface Area) 1.90 m2 Romayor body weight in kilograms 50 kg O2 % BldC Oximetry 964 % 02/18/2019 8:04am BP Systolic Sitting Left Arm 112 mmHg BP Diastolic Sitting Left Arm 66 mmHg Heart Rate 98 /min Respiratory Rate 20 /min Height 62 inches 5'2" unable to stand Weight 215.00 lb BMI (Body Mass Index) 39.3 kg/m2 BSA (Body Surface Area) 1.97 m2 Romayor body weight in kilograms 50 kg O2 Saturation Level with Exercise 935 % Results Test Acquired Date Facility Test Result H/L Range Note CBC 02/24/2019 [facility] White Blood 10.7 K/uL Normal 3.1-10.[address] [place] [address] [phone] Red Blood Count 2.61 M/uL Low 3.90-5.40 Hemoglobin 6.8 gm/dL Low 11.6-15.8 Hematocrit 23.0 % Low 36.0-46.1 Mean Cell Volume 88.1 fl Normal 80.9-99.0 Mean Corpuscular HGB 26.1 pg Normal 25.9-32.7 Mean Corpuscular HGB Conc 29.6 g/dL Low 30.8-34.3 Platelet Count 167 K/uL Normal 155-360 Red Cell Distri Width SD 59.7 fl High 36-47 Red Cell Distri Width %CV 19.0 % High 11.7-14.4 Mean Platelet Volume 11.6 fl Normal 8.9-12.4 NRBC % 0.0 /100WBC < 10/ 100 WBC Basic Metabolic Panel 02/24/2019 [facility] Glucose 302 mg/dL High 74-[address] [place], [place] [address] [phone] BUN 74 mg/dL High 7-18 Creatinine 1.5 mg/dL High 0.6-1.3 Glom Filtration Rate, Estimate 35 mL/min >60 If 43 mL/min >60 2 BUN/Creat 49.3 ratio Sodium 132 mmol/L Low 136-145 Potassium 4.6 mmol/L Normal 3.5-5.1 Chloride 98 mmol/L Normal 98-107 Carbon Dioxide 28 mmol/L Normal 21-32 Anion Gap 6 mEq/L Low 8-16 Calcium 8.4 mg/dL Low 8.5-10.1 Laboratory 02/24/2019 [facility] Magnesium 1.9 mg/dL Normal 1.6-2.6 test finding [address] [place] [address] [phone] Occult 02/23/2019 [facility] Stool Occult POSITIVE Abnormal Negative 3 Blood,Stool [address] [place] [address] Spec [phone] CBC 02/04/2019 [facility] White Blood 12.6 K/uL High 3.1-10.7 4 W/Automated [address] [place] [address] [phone] Red Blood Count 3.37 M/uL Low 3.90-5.40 [...] 40.4-72.8 Lymph % 9.7 % Low 20.0-42.0 [place] % 6.3 % Normal 4.3-13.2 Eo% 2.9 % Normal 0.0-6.6 Bas% 0.3 % Normal 0.0-1.1 Immature Grans 1.3 % Normal 0.0-5.0 NRBC % 0.0 /100WBC < 10/ 100 WBC Neut# 10.04 K/uL High 1.8-7.0 Lymph # 1.22 K/uL Normal 1.0-4.0 [place] # 0.79 K/uL Normal 0.3-0.9 Eos # 0.36 K/uL Normal 0.0-0.5 Baso # 0.04 K/uL Normal 0.0-0.1 Immature Grans Absolute 0.16 K/uL NRBC # 0.00 K/uL Comprehensive Metabolic 02/04/2019 [facility] Glucose 112 mg/dL High 74-106 Panel [address] [place] [address] [phone] BUN 50 mg/dL High 7-18 Creatinine 1.5 mg/dL High 0.6-1.3 Glom Filtration Rate, Estimate 35 mL/min >60 If 43 mL/min >60 5 BUN/Creat 33.3 ratio Sodium 132 mmol/L Low [...] 116 U/L Normal 45-117 CBC W/Automated 01/26/2019 [facility] White Blood 9.3 K/uL Normal 3.1-10.7 [address] [place], [place] [address] [phone] Red Blood Count 3.21 M/uL Low 3.90-5.40 [...] 40.4-72.8 Lymph % 11.2 % Low 20.0-42.0 [place] % 6.3 % Normal 4.3-13.2 Eo% 3.7 % Normal 0.0-6.6 Bas% 0.4 % Normal 0.0-1.1 Immature Grans 1.0 % Normal 0.0-5.0 NRBC % 0.2 /100WBC < 10/ 100 WBC Neut# 7.18 K/uL High 1.8-7.0 Lymph # 1.04 K/uL Normal 1.0-4.0 [place] # 0.58 K/uL Normal 0.3-0.9 Eos # 0.34 K/uL Normal 0.0-0.5 Baso # 0.04 K/uL Normal 0.0-0.1 Immature Grans Absolute 0.09 K/uL NRBC # 0.02 K/uL Comprehensive Metabolic 01/26/2019 [facility] Glucose 121 mg/dL High 74-106 Panel [address] [place] [address] [phone] BUN 29 mg/dL High 7-18 Creatinine 1.4 mg/dL High 0.6-1.3 Glom Filtration Rate, Estimate 38 mL/min >60 If 46 mL/min >60 7 BUN/Creat 20.7 ratio Sodium 137 mmol/L Normal [...] Phosphatase 147 U/L High 45-117 Iron-Tibc-%Sat 01/26/2019 [facility] Serum Iron 49 g/dL Low 50-170 [address] [place], [place] [address] [phone] Total Iron Binding Capacity 335 g/dL Normal 250-450 Transferrin %Saturation 15 % Normal 12-57 Laboratory test 01/26/2019 [facility] Ferritin 75 ng/mL Normal 8-252 finding [address] [place], [place] [address] [phone] Vitamin B12 And 01/26/2019 [facility] Vitamin B12 574 pg/mL Normal 193-986 Folate [address] [place] [address] [phone] Folic Acid > 20.0 ng/mL High 3.1-17.5 Laboratory test 01/16/2019 [facility] Magnesium 2.0 mg/dL Normal 1.8-2.4 8 finding [address] [place], [place] [address] [phone] Basic Metabolic 01/16/2019 [facility] Glucose 212 mg/dL High 74-[address] [place], [place] [address] [phone] BUN 37 mg/dL High 7-18 Creatinine 1.4 mg/dL High 0.6-1.3 Glom Filtration Rate, Estimate 38 mL/min >60 If 46 mL/min >60 9 BUN/Creat 26.4 ratio Sodium 137 mmol/L Normal 136-145 Potassium 3.6 mmol/L Normal 3.5-5.1 Chloride 97 mmol/L Low 98-107 Carbon Dioxide 37 mmol/L High 21-32 Anion Gap 3 mEq/L Low 8-16 Calcium 9.3 mg/dL Normal 8.5-10.1 CBC W/Automated 12/12/2018 [facility] White 8.2 K/uL Normal 3.1-10.7 10 Diff [address] [place] [address] Count [phone] Red Blood Count 3.43 M/uL Low 3.90-5.40 [...] 40.4-72.8 Lymph % 14.7 % Low 20.0-42.0 [place] % 6.5 % Normal 4.3-13.2 Eo% 7.1 % High 0.0-6.6 Bas% 0.4 % Normal 0.0-1.1 Immature Grans 1.0 % Normal 0.0-5.0 NRBC % 0.0 /100WBC < 10/ 100 WBC Neut# 5.74 K/uL Normal 1.8-7.0 Lymph # 1.20 K/uL Normal 1.0-4.0 [place] # 0.53 K/uL Normal 0.3-0.9 Eos # 0.58 K/uL High 0.0-0.5 Baso # 0.03 K/uL Normal 0.0-0.1 Immature Grans Absolute 0.08 K/uL NRBC # 0.00 K/uL Comprehensive Metabolic 12/12/2018 [facility] Glucose 150 mg/dL High 74-106 Panel [address] [place] [address] [phone] BUN 52 mg/dL High 7-18 Creatinine 1.6 mg/dL High 0.6-1.3 Glom Filtration Rate, Estimate 33 mL/min >60 If 40 mL/min >60 11 BUN/Creat 32.5 ratio Sodium 137 mmol/L Normal [...] Phosphatase 123 U/L High 45-117 Iron-Tibc-%Sat 12/12/2018 [facility] Serum Iron 55 g/dL Normal 50-170 [address] [place], [place] [address] [phone] Total Iron Binding Capacity 357 g/dL Normal 250-450 Transferrin %Saturation 15 % Normal 12-57 Laboratory test 12/12/2018 [facility] Ferritin 142 ng/mL Normal 8-252 finding [address] [place] [address] [phone] Vitamin B12 And 12/12/2018 [facility] Vitamin B12 574 pg/mL Normal 193-986 Folate [address] [place] [address] [phone] Folic Acid > 20.0 ng/mL High 3.1-17.5 Laboratory test 12/12/2018 [facility] Slide Review (SEE [address] NOTE) [place] [address] [phone] Reticulocyte 10/29/2018 [facility] Retic 30.3 pg Normal 27.9 13 Count,Automated [address] Hemoglobin -37. [place] [address] 0 [phone] Retic % 4.7 % High 0.5-1.8 Absolute Retic 170 K/uL High 24-84 Immature Retic Fraction 29.9 % High 2.9-15.5 Laboratory test 10/29/2018 [facility] Vitamin 47.1 30.0-100.0 [address] D,25-Hydroxy ng/[place] [address] [phone] LDH 245 U/L Normal 84-246 Sedimentation Rate 67 mm/hr High 2-55 15 Vitamin B12 And 10/29/2018 [facility] Vitamin B12 714 pg/mL Normal 193-[address] [place] [address] [phone] Folic Acid > 20.0 ng/mL High 3.1-17.5 Immunoglobulins 10/29/2018 [facility] Immunoglobulin [phone] A/G/M, QN, Ser [address] G,Quant,Serum mg/[place] [address] [phone] Immunoglobulin A 312 mg/dL 64-422 Immunoglobulin M 35 mg/dL 26-217 16 CBC W/Automated 10/29/2018 [facility] White Blood 11.7 K/uL High 3.1-10.[address] [place] [address] [phone] Red Blood Count 3.65 M/uL Low 3.90-5.40 [...] 40.4-72.8 Lymph % 12.0 % Low 20.0-42.0 [place] % 6.6 % Normal 4.3-13.2 Eo% 4.2 % Normal 0.0-6.6 Bas% 0.3 % Normal 0.0-1.1 Immature Grans 1.1 % Normal 0.0-5.0 NRBC % 0.0 /100WBC < 10/ 100 WBC Neut# 8.84 K/uL High 1.8-7.0 Lymph # 1.40 K/uL Normal 1.0-4.0 [place] # 0.77 K/uL Normal 0.3-0.9 Eos # 0.49 K/uL Normal 0.0-0.5 Baso # 0.04 K/uL Normal 0.0-0.1 Immature Grans Absolute 0.13 K/uL NRBC # 0.00 K/uL Comprehensive Metabolic 10/29/2018 [facility] Glucose 137 mg/dL High 74-106 Panel [address] [place] [address] [phone] BUN 71 mg/dL High 7-18 Creatinine 1.8 mg/dL High 0.6-1.3 Glom Filtration Rate, Estimate 29 mL/min >60 If 35 mL/min >60 17 BUN/Creat 39.4 ratio Sodium 135 mmol/L Low [...] Phosphatase 149 U/L High 45-117 Iron-Tibc-%Sat 10/29/2018 [facility] Serum Iron 44 g/dL Low 50-170 [address] [address] [phone] Total Iron Binding Capacity 444 g/dL Normal 250-450 Transferrin %Saturation 10 % Low 12-57 Laboratory test 10/29/2018 [facility] Ferritin 59 ng/mL Normal 8-252 finding [address] [place] [address] [phone] Comprehensive 10/24/2018 [facility] Glucose 130 mg/dL High 74-106 18 Metabolic Panel [address] [address] [phone] BUN 92 mg/dL High 7-18 Creatinine 2.4 mg/dL High 0.6-1.3 Glom Filtration Rate, Estimate 21 mL/min >60 If 25 mL/min >60 19 BUN/Creat 38.3 ratio Sodium 135 mmol/L Low [...] Phosphatase 168 U/L High 45-117 Laboratory 10/22/2018 [facility] Vitamin 43.8 30.0-100.0 20, test finding [address] D,25-Hydroxy ng/mL [address] [place] [address] [phone] Vitamin B12 10/22/2018 [facility] Vitamin B12 717 Normal 193-[address] pg/[place] [address] [phone] Folic Acid > 20.0 ng/mL High 3.1-17.5 Laboratory test 10/22/2018 [facility] Ferritin 99 ng/mL Normal 8-252 22 finding [address] [place] [address] [phone] Iron-Tibc-%Sat 10/22/2018 [facility] Serum Iron 77 g/dL Normal 50-170 [address] [place] [address] [phone] Total Iron Binding Capacity 450 g/dL Normal 250-450 Transferrin %Saturation 17 % Normal 12-57 Comprehensive Metabolic 10/22/2018 [facility] Glucose 203 mg/dL High 74-106 Panel [address] [place] [address] [phone] BUN 85 mg/dL High 7-18 Creatinine 2.0 mg/dL High 0.6-1.3 Glom Filtration Rate, Estimate 25 mL/min >60 If 31 mL/min >60 23 BUN/Creat 42.5 ratio Sodium 129 mmol/L Low [...] 170 U/L High 45-117 CBS W/Automated 10/22/2018 [facility] White Blood 12.1 K/uL High 3.1-10.7 Diff [address] [place] [address] [phone] Red Blood Count 3.51 M/uL Low 3.90-5.40 [...] 40.4-72.8 Lymph % 10.0 % Low 20.0-42.0 [place] % 6.0 % Normal 4.3-13.2 Eo% 5.0 % Normal 0.0-6.6 Bas% 0.2 % Normal 0.0-1.1 Immature Grans 2.2 % Normal 0.0-5.0 NRBC % 0.2 /100WBC < 10/ 100 WBC Neut# 9.23 K/uL High 1.8-7.0 Lymph # 1.20 K/uL Normal 1.0-4.0 [place] # 0.72 K/uL Normal 0.3-0.9 Eos # 0.60 K/uL High 0.0-0.5 Baso # 0.03 K/uL Normal 0.0-0.1 Immature Grans Absolute 0.27 K/uL NRBC # 0.02 K/uL 1 SEPSIS UTI, LEUKOCYTOSIS 2 Note: Persistent reduction for 3 months or more in an eGFR <60 mL/min/1.73 m2 defines CKD. Patients with eGFR values >/=60 mL/min/1.73 m2 may also have CKD if evidence of persistent proteinuria is present. The original MDRD equation for estimated GFR is not valid for patients less than 18 years of age. Additional information may be found at [email or web address]. 3 Method: [employer] Hemoccult Card 4 R06.02 5 Note: Persistent reduction for 3 months or more in an eGFR <60 mL/min/1.73 m2 defines CKD. Patients with eGFR values >/=60 mL/min/1.73 m2 may also have CKD if evidence of persistent proteinuria is present. The original MDRD equation for estimated GFR is not valid for patients less than 18 years of age. Additional information may be found at [email or web address]. 6 C34.32 J44.9 7 Note: Persistent reduction for 3 months or more in an eGFR <60 mL/min/1.73 m2 defines CKD. Patients with eGFR values >/=60 mL/min/1.73 m2 may also have CKD if evidence of persistent proteinuria is present. The original MDRD equation for estimated GFR is not valid for patients less than 18 years of age. Additional information may be found at [email or web address]. 8 R60.0 9 Note: Persistent reduction for 3 months or more in an eGFR <60 mL/min/1.73 m2 defines CKD. Patients with eGFR values >/=60 mL/min/1.73 m2 may also have CKD if evidence of persistent proteinuria is present. The original MDRD equation for estimated GFR is not valid for patients less than 18 years of age. Additional information may be found at [email or web address]. 10 C34.32 C34.31 11 Note: Persistent reduction for 3 months or more in an eGFR <60 mL/min/1.73 m2 defines CKD. Patients with eGFR values >/=60 mL/min/1.73 m2 may also have CKD if evidence of persistent proteinuria is present. The original MDRD equation for estimated GFR is not valid for patients less than 18 years of age. Additional information may be found at [email or web address]. 12 Instrument flagged sample for slide review. Less than 10% Bands seen, no other immature WBC's seen. RBC morphology essentially normal. Platelet estimate = NORMAL, FEW FIBRIN STRANDS SEEN ON SLIDE 13 C34.32 J44.9 14 Vitamin D deficiency has been defined by the [place] of Medicine and an Endocrine Society practice guideline as a level of serum 25-OH vitamin D less than 20 ng/mL (1,2). The Endocrine Society went on to further define vitamin D insufficiency as a level between 21 and 29 ng/mL (2). 1. IOM ([place] of Medicine). 2010. Dietary reference intakes for calcium and D. [place]: The National Academies Press. 2. Martin MF, Sara [place], [address], et al. Evaluation, treatment, and prevention of vitamin D deficiency: an Endocrine Society clinical practice guideline. JCEM. 2010; 96(7):1911-30. Performed at: RN - [facility] [address] [id number] [employer] Manager: Eryn Balderas MD, Phone: [phone] 15 This result was obtained with an ESR method that is not based on the standard Westergren Method. When comparing results obtained from the traditional Westergren ESR and this method it is important to refer to the reference range for each method. Method: Capillary Photometry 16 Performed at: [facility] [id number] [employer] Manager: Eryn Balderas MD, Phone: [phone] 17 Note: Persistent reduction for 3 months or more in an eGFR <60 mL/min/1.73 m2 defines CKD. Patients with eGFR values >/=60 mL/min/1.73 m2 may also have CKD if evidence of persistent proteinuria is present. The original MDRD equation for estimated GFR is not valid for patients less than 18 years of age. Additional information may be found at [email or web address]. 18 C34.32 19 Note: Persistent reduction for 3 months or more in an eGFR <60 mL/min/1.73 m2 defines CKD. Patients with eGFR values >/=60 mL/min/1.73 m2 may also have CKD if evidence of persistent proteinuria is present. The original MDRD equation for estimated GFR is not valid for patients less than 18 years of age. Additional information may be found at www.[email or web address]. 20 C34.32 J44.9 21 Vitamin D deficiency has been defined by the [place] of Medicine and an Endocrine Society practice guideline as a level of serum 25-OH vitamin D less than 20 ng/mL (1,2). The Endocrine Society went on to further define vitamin D insufficiency as a level between 21 and 29 ng/mL (2). 1. IOM ([place] of [employer]). 2010. Dietary reference intakes for calcium and D. [place]: The National Academies Press. 2. Martin MF, Sara [place], [address], et al. Evaluation, treatment, and prevention of vitamin D deficiency: an Endocrine Society clinical practice guideline. JCEM. 2010; 96(7):1911-30. Performed at: [facility] [id number] [employer] Manager: Eryn Balderas MD, Phone: [phone] CHECKED CALLED RUPA C. WITH POTASSIUM AT 1201 07/10/19 23 Note: Persistent reduction for 3 months or [...] at [email or web address]. Procedures Date Code Description Status 02/23/2019 66813 Echocardiogram Complete Completed 02/22/2019 39269 EKG Interpretation And Report Only Completed 01/14/2019 21162 EKG-Tracing And Report Completed 09/04/2018 98427 Echocardiogram Complete Completed 12/05/2010 [id number] Mammogram Completed 11/13/2010 [id number] Bone Mineral Density Test Completed Medical Devices Description No Information Available Encounters Type Date Location Provider Dx Diagnosis Office Visit 03/03/2019 Cardiology Office Chelita Art MD I50.32 Chronic diastolic 1:20p (congestive) heart failure J44.9 Chronic obstructive pulmonary disease, unspecified D64.9 Anemia, unspecified Office Visit 02/18/2019 8:00a Cardiology Office Emelina I50.32 Chronic diastolic Marlyss B., (congestive) heart PA failure J44.9 Chronic obstructive pulmonary disease, unspecified E87.5 Hyperkalemia R94.30 Abnormal result of cardiovascular function study, [facility] Office Visit 02/04/2019 3:00p Pulmonology Joanne Garzon PA R05 Cough R09.02 Hypoxemia R60.0 Localized edema Office Visit 02/03/2019 1:30p Oncology Office Niecy Pacheco E61.1 Iron deficiency B., [employer] E53.9 Vitamin B deficiency, unspecified D64.9 Anemia, unspecified Office Visit 01/14/2019 8:00a Cardiology Office Emelina R60.0 Localized edema Marlyss Kurt. PA R94.31 Abnormal electrocardiogram [ECG] [EKG] E87.6 Hypokalemia R07.9 Chest pain, unspecified Office Visit 12/23/2018 11:30a Infusion Center Niecy Pacheco E61.1 Iron deficiency B., [employer] D64.9 Anemia, unspecified 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, left bronchus or lung Office Visit 10/29/2018 12:30p Oncology Office Rossy, C34.32 Malignant Letty, DO neoplasm of lower lobe, left bronchus or lung D64.9 Anemia, unspecified Office Visit 2018 3:30p Pulmonology Frederick Rossi MD J44.9 Chronic obstructive pulmonary disease, unspecified R09.02 Hypoxemia Z99.81 Dependence on supplemental oxygen Assessments Date Code Description Provider 03/03/2019 I50.32 Chronic diastolic (congestive) heart Chelita Art MD failure 03/03/2019 J44.9 Chronic obstructive pulmonary disease, Chelita Art MD unspecified 03/03/2019 D64.9 Anemia, unspecified Chelita Art MD 02/27/2019 J96.21 Acute and chronic respiratory failure Deb Amezcua M.D. with hypoxia 02/27/2019 R65.21 Severe sepsis with septic shock Deb Amezcua M.D. 02/27/2019 I50.30 Unspecified diastolic (congestive) Deb Amezcua M.D. heart failure 02/27/2019 D64.9 Anemia, unspecified Deb Amezcua M.D. 02/26/2019 J96.21 Acute and chronic respiratory failure Deb Amezcua M.D. with hypoxia 02/26/2019 R65.21 Severe sepsis with septic shock Deb Amezcua M.D. 02/26/2019 I50.30 Unspecified diastolic (congestive) Deb Amezcua M.D. heart failure 02/26/2019 R19.5 Other fecal abnormalities Deb Amezcua M.D. 02/25/2019 J96.21 Acute and chronic respiratory failure Deb Amezcua M.D. with hypoxia 02/25/2019 R65.21 Severe sepsis with septic shock Deb Amezcua M.D. 02/25/2019 I50.30 Unspecified diastolic (congestive) Deb Amezcua M.D. heart failure 02/25/2019 R19.5 Other fecal abnormalities Deb Amezcua M.D. 02/24/2019 J96.21 Acute and chronic respiratory failure Clint Fajardo M.D. with hypoxia 02/24/2019 R65.21 Severe sepsis with septic shock Clint Fajardo M.D. 02/24/2019 I50.30 Unspecified diastolic (congestive) Clint Fajardo M.D. heart failure 02/24/2019 R19.5 Other fecal abnormalities Clint Fajardo M.D. 02/23/2019 J96.21 Acute and chronic respiratory failure Clint Fajardo M.D. with hypoxia 02/23/2019 R94.31 Abnormal electrocardiogram [ECG] [EKG] Chelita Art MD 02/23/2019 N39.0 Urinary tract infection, site not Clint Fajardo M.D. specified 02/23/2019 I50.31 Acute diastolic (congestive) heart Chelita Art MD failure 02/23/2019 R65.21 Severe sepsis with septic shock Clint Fajardo M.D. 02/23/2019 I27.20 Pulmonary hypertension, unspecified Chelita Art MD 02/23/2019 I31.3 Pericardial effusion (noninflammatory) Chelita Art MD 02/23/2019 I50.30 Unspecified diastolic (congestive) Clint Fajardo M.D. heart failure 02/23/2019 R79.89 Other specified abnormal findings of Chelita Art MD blood chemistry 02/22/2019 J96.21 Acute and chronic respiratory failure Deb Amezcua M.D. with hypoxia 02/22/2019 R94.31 Abnormal electrocardiogram [ECG] [EKG] Chelita Art MD 02/22/2019 N39.0 Urinary tract infection, site not Deb Amezcua M.D. specified 02/22/2019 I50.31 Acute diastolic (congestive) heart Chelita Art MD failure 02/22/2019 R65.21 Severe sepsis with septic shock Deb Amezcua M.D. 02/22/2019 R79.89 Other specified abnormal findings of Chelita Art MD blood chemistry 02/22/2019 I50.30 Unspecified diastolic (congestive) Deb Amezcua M.D. heart failure 02/18/2019 I50.32 Chronic diastolic (congestive) heart Ann Tarango PA failure 02/18/2019 J44.9 Chronic obstructive pulmonary disease, Ann Tarango, PA unspecified 02/18/2019 E87.5 Hyperkalemia Ann Tarango, PA 02/18/2019 R94.30 Abnormal result of cardiovascular Ann Tarango, PA function study, unspecified 02/04/2019 R05 Cough Joanne Garzon, PA 02/04/2019 R09.02 Hypoxemia Joanne Garzon, PA 02/04/2019 R60.0 Localized edema Joanne Garzon, PA 02/03/2019 E61.1 Iron deficiency Niecy Pacheco, [employer] 02/03/2019 E53.9 Vitamin B deficiency, unspecified Niecy Pacheco, [employer] 02/03/2019 D64.9 Anemia, unspecified Niecy Pacheco, [employer] 01/26/2019 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, [...] PA 01/14/2019 R07.9 Chest pain, unspecified Ann Tarango., PA 12/23/2018 E61.1 Iron deficiency Niecy Pacheco, [employer] 12/23/2018 D64.9 Anemia, unspecified Niecy Pacheco, [employer] 12/23/2018 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, left Niecy Pacheco , [employer] bronchus or lung 10/29/2018 C34.32 Malignant neoplasm [...] Acute respiratory failure with hypoxia Ananth Guy, [employer] 10/07/2018 I50.33 Acute on chronic diastolic Ananth Guy FNP (congestive) heart failure 10/07/2018 E87.5 Hyperkalemia Ananth Guy, [employer] 10/07/2018 N18.6 End stage renal disease Ananth Guy, [employer] 10/06/2018 J96.01 Acute respiratory failure with hypoxia Ananth Guy, [employer] 10/06/2018 I50.33 Acute on chronic diastolic CadAnanth monroe FNP (congestive) heart failure 10/06/2018 E87.5 Hyperkalemia Ananth Guy, [employer] 10/06/2018 N18.6 End stage renal disease Ananth Guy, [employer] 10/05/2018 J96.01 Acute respiratory failure with hypoxia [...] diastolic Tate Reynoso M.D., (congestive) heart failure [facility] 10/02/2018 J96.01 Acute respiratory failure with hypoxia Gregor Wheeler MD 10/02/2018 J96.01 Acute respiratory failure with hypoxia Tate Reynoso M.D., [facility] 10/02/2018 I50.33 Acute on chronic diastolic Gregor Wheeler MD (congestive) heart failure 10/02/2018 E87.5 Hyperkalemia Tate Reynoso M.D., [facility] 10/02/2018 E87.5 Hyperkalemia Gregor Wheeler MD 10/02/2018 I73.9 Peripheral vascular disease, Tate Reynoso M.D., unspecified [facility] 10/02/2018 N18.6 End stage renal disease Gregor Wheeler MD 10/02/2018 R60.0 Localized edema Tate Reynoso M.D., [facility] 10/02/2018 I95.89 Other hypotension Tate Reynoso M.D., [facility] 10/01/2018 J96.01 Acute respiratory failure with hypoxia Gregor Wheeler MD 10/01/2018 I50.33 Acute on chronic diastolic Gregor Wheeler MD (congestive) heart failure 10/01/2018 E87.5 HyperkaleGregor Stephens MD 10/01/2018 N18.6 End stage renal disease [...] Shyla Garvin NP Plan of Treatment Future Appointment(s):04/29/2019 11:30 am - Chelita Art MD at Cardiology [facility]303/25/2019 2:00 pm - Jeffy Goldberg MD at [facility]/26/2019 2:30 pm - Letty Blair DO at Oncology [facility]4903/03/2019 - Chelita Art MDI50.32 Chronic diastolic (congestive) heart failureNew Orders:Nuclear Stress Test, Lexiscan, Ordered: 03/03/19Comments:Markedly improved after diuresis. Limited functional capacity. Her cardiac enzymes were abnormal in hospital and she likely has underlying CAD. Now that her source of bleeding was identified and treated and she is receiving iron infusions, I will set her up for follow up labs and Lexiscan to evaluate extent of CAD and amount of reversible ischemia. At the moment she is off all antiplatelets. We will need to follow up GI recommendations regards antiplatelet therapy.Dr Jones appt pending.J44.9 Chronic obstructive pulmonary disease, unspecifiedComments:Intolerant to Trilogy. Down to 4 liters of oxygen now after aggressive diuresis.Followed by [id number] Anemia, unspecifiedNew Labs:Comprehensive Metabolic Panel, Ordered: 03/03/19CBC W/Automated Diff, Ordered: 03/03/19Iron-Tibc-%Sat, Ordered : 03/03/19Ferritin, Ordered: 03/03/19Comments:Scheduled for iron infusion next week with Dr Lockhart repeat labsAllFollow up:After the studies are completed. Functional Status Description No Information Available Mental Status Description No Information Available Referrals Description No Information Available
--- OUTSIDE RECORDS SUMMARY | 2019-03-23 14:17 | XMS REPORT | Continuity of Care Document ---
:1935 External Reference #:[id number] Author Name Letty Blair DO (transmitted by agent of provider Felisha Sharma) Address [address] [place] [phone] Care Team Providers Name Role Phone Dea Johnson MD - Family Care Team Information Staffing [phone] [phone] Medicine Problems Active Problems Provider Date Acquired trigger finger Onset: 04/06/2003 Fracture of femur Onset: Diabetes mellitus Onset: Chronic obstructive lung disease Onset: Hypoxia Onset: Hypertensive disorder Onset: Hyperlipidemia Onset: Urinary tract infectious disease Onset: Closed fracture of shaft of femur Garcia Way MD, FACS Onset: 2014 Other Aftercare Involving Internal Garcia Way MD, FACS Onset: 2014 Fixation Device Erythematous condition Brandie Augustin M.D. Onset: 06/29/2015 Urge incontinence of urine Brandie Augustin M.D. Onset: 08/15/2015 History of chronic urinary tract Brandie Augustin M.D. 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 MD Jeffy Provide 02 cylinders for portability. Flovent Diskus inhale one puff by 3months Frederick Rossi MD 04/01/2018 mouth twice a day 100mcg/Blist Aerosol (rinse mouth after use) Acapella please provide 1 1units Frederick Tony MD 03/24/2018 [facility] device. diagnosis: copd use three times a day as needed to clear secretions. Take 10 breaths each time. Proair HFA 2 inhalations every 25.5gm Frederick Rossi MD 03/01/2017 4 hours as needed 108(90Base) mcg/Act for shortness of Aerosol breath. Unifine Pentips Ruben Use To Inject 4units Thao Monson M.D. 02/18/2017 6mm 100'S 31G / Insulin Four Times A 31G Day 04/18 Oxygen please provide oxy Yusuf, 01/28/2017 pendant to assist in MD Jeffy maintaining o2 saturations between 89-95% dx: copd Anoro Ellipta Use 1 Inhalation 180unit J44Amarjit Goldberg, 10/31/2016 Once Daily s MD Jeffy 62.5-25mcg/Inh Aerosol Lancets Freestyle Test Finger Stick 4units Thao Monson M.D. 04/23/2016 100'S 28G Four Times A Day 28G Freestyle Lite Test test blood sugar 4x 600unit Rickie Abarca DO 04/05 a day s Strips Pravastatin Sodium 1/2 by mouth at 90tabs E78.2 Thao Monson M.D. 2015 bedtime 10mg Tablets Pen Erie use to inject 400unit Thao Monson M.D. 01/30/2016 31G X 6 insulin 4x/day s mm Misc Lancets Ultra Fine Test fs 4x/day 400unit Thao Monson M.D. 03/08/2015 s Misc Pantoprazole Sodium 1 by mouth every day Unknown 40mg Tablets DR Sucralfate Unknown 1gm Tablets Albuterol Sulfate nebulized every 4-6 Unknown hours as needed (2.5mg/3ML) 0.083% Nebulizer Ipratropium every 6 hours as Unknown [place]/Albuterol needed Sulfate 0.5-2.5(3)mg/3ML Solution Promethazine HCL take 1 tablet by Unknown 25mg mouth every 12 hours Tablets as needed for nausea (maximum daily dose =2) Advil PM Unknown 200-25mg Capsules Klor-Con M20 3 tabs by mouth 120tabs Chelita Art MD 20Meq daily (can split Tablets ER doses during the day) Torsemide 2 po daily Lisa Nam NP 20mg Tablets Cephalexin 1 po daily Unknown [...] History Medications Azithromycin take two tablets 6tabs Corral-Cyndie, 02/04/2019 - 250mg today, then one MD Jeffy Unknown Tablets a day for the next four days. Metolazone take 1 tab (30 30tabs R60.0 Chelita Art MD 01/14/2019 - 2.5mg minutes before Unknown Tablets torsemide) prn edema or weight gain >2-3 lbs Metolazone Take 1 Tablet 30 90tabs R60.0 Tate Reynoso, 11/03/2018 - 5mg Minutes Before M.DElder, [facility] 01/14/2019 Tablets Torsemide Dose Every Other Day Mucinex Twice a day as 60tabs J44.9 Frederick Rossi MD 2018 - 600mg needed for Unknown Tablets ER 12HR cough. Medications Administered in Office Medication SIG Qnty Indications Ordering Provider Date Vitamin B12 Injection 1000 Letty Blair DO 11/13/2017 mcg/Ml Injection Theraputic Or Diagnostic Letty Blair DO 11/13/2017 Injection Injection Depo-Medrol 20mg Annemarie Plasencia, [facility] 01/29/2013 Injection Immunizations Description No Information Available Vital Signs Date Vital Result Comment 03/10/2019 3:24pm BP Systolic 127 mmHg BP Diastolic 60 mmHg Body Temperature 98.2 F Heart Rate 113 /min Respiratory Rate 22 /min Weight 199.50 lb O2 % BldC Oximetry 95 % Pain Level 0 03/03/2019 1:32pm BP Systolic Sitting Left Arm 110 mmHg BP Diastolic Sitting Left Arm 58 mmHg Heart Rate 82 /min Respiratory Rate 20 /min Height 62 inches Weight 196.00 lb BMI (Body Mass Index) 35.8 kg/m2 BSA (Body Surface Area) 1.90 m2 [place] body weight in kilograms 50 kg O2 % BldC Oximetry 964 % Results Test Acquired Date Facility Test Result H/L Range Note Comprehensive 03/03/2019 [facility] Glucose 123 mg/dL High 74-106 1 Metabolic Panel [address] [place], [place] [id number] [phone] BUN 71 mg/dL High 7-18 Creatinine 1.5 mg/dL High 0.6-1.3 Glom Filtration Rate, Estimate 35 mL/min >60 If 43 mL/min >60 2 BUN/Creat 47.3 ratio Sodium 136 mmol/L Normal 136-145 Potassium 3.5 mmol/L Normal 3.5-5.1 Chloride 96 mmol/L Low 98-107 Carbon Dioxide 37 mmol/L High 21-32 Anion Gap 3 mEq/L Low 8-16 Calcium 9.6 mg/dL Normal 8.5-10.1 Total Protein 7.7 g/dL Normal 6.4-8.2 Albumin 3.1 g/dL Low 3.4-5.0 Globulin 4.6 g/dL High 1.9-4.3 Alb/Glob 0.7 ratio Bilirubin,Total 0.6 mg/dL Normal 0.2-1.0 Sgot/Ast 54 U/L High 15-37 SGPT/Alt 66 U/L 12-78 Alkaline Phosphatase 134 U/L High 45-117 CBC W/Automated 03/03/2019 [facility] White Blood 13.4 K/uL High 3.1-10.[address] [place] [address] [phone] Red Blood Count 4.50 M/uL Normal 3.90-5.40 Hemoglobin 11.7 gm/dL Normal 11.6-15.8 Hematocrit 39.2 % Normal 36.0-46.1 Mean Cell Volume 87.1 fl Normal 80.9-99.0 Mean Corpuscular HGB 26.0 pg Normal 25.9-32.7 Mean Corpuscular HGB Conc 29.8 g/dL Low 30.8-34.3 Platelet Count 170 K/uL Normal 155-360 Red Cell Distri Width SD 55.5 fl High 36-47 Red Cell Distri Width %CV 17.6 % High 11.7-14.4 Mean Platelet Volume 12.9 fl High 8.9-12.4 Neut% 89.2 % High 40.4-72.8 Lymph % 5.0 % Low 20.0-42.0 Hartley % 4.5 % Normal 4.3-13.2 Eo% 0.3 % Normal 0.0-6.6 Bas% 0.1 % Normal 0.0-1.1 Immature Grans 0.9 % Normal 0.0-5.0 NRBC % 0.0 /100WBC < 10/ 100 WBC Neut# 11.92 K/uL High 1.8-7.0 Lymph # 0.67 K/uL Low 1.0-4.0 Hartley # 0.60 K/uL Normal 0.3-0.9 Eos # 0.04 K/uL Normal 0.0-0.5 Baso # 0.02 K/uL Normal 0.0-0.1 Immature Grans Absolute 0.12 K/uL NRBC # 0.00 K/uL Iron-Tibc-%Sat 03/03/2019 [facility] Serum Iron 39 g/dL Low 50-170 [address] [place] [address] [phone] Total Iron Binding Capacity 370 g/dL Normal 250-450 Transferrin %Saturation 11 % Low 12-57 Laboratory test 03/03/2019 [facility] Ferritin 263 ng/mL High 8-252 finding [address] [place], [place] [address] [phone] CBC 02/24/2019 [facility] White Blood 10.7 K/uL Normal 3.1-10.7 [address] [place] [address] [phone] Red Blood Count 2.61 M/uL Low 3.90-5.40 [...] 10/ 100 WBC Basic Metabolic Panel 02/24/2019 [facility] Glucose 302 mg/dL High 74-106 [address] [place] [address] [phone] BUN 74 mg/dL High 7-18 Creatinine 1.5 mg/dL High 0.6-1.3 Glom Filtration Rate, Estimate 35 mL/min >60 If 43 mL/min >60 4 BUN/Creat 49.3 ratio Sodium 132 mmol/L Low 136-145 Potassium 4.6 mmol/L Normal 3.5-5.1 Chloride 98 mmol/L Normal 98-107 Carbon Dioxide 28 mmol/L Normal 21-32 Anion Gap 6 mEq/L Low 8-16 Calcium 8.4 mg/dL Low 8.5-10.1 Laboratory test 02/24/2019 [facility] Magnesium 1.9 mg/dL Normal 1.6-2.6 finding [address] [place], [place] [id number] [phone] Occult 02/23/2019 [facility] Stool POSITIVE Abnormal Negative 5 Blood,Stool [address] [facility] [place] [address] Blood-Singl [phone] e Spec Comprehensive 02/04/2019 [facility] Glucose 112 mg/dL High 74-106 6 Metabolic Panel [address] [place] [address] [phone] BUN 50 mg/dL High 7-18 Creatinine 1.5 mg/dL High 0.6-1.3 Glom Filtration Rate, Estimate 35 mL/min >60 If 43 mL/min >60 7 BUN/Creat 33.3 ratio Sodium 132 mmol/L Low [...] Phosphatase 116 U/L Normal 45-117 CBC W/Automated 02/04/2019 [facility] White Blood 12.6 K/uL High 3.1-10.[address] [place] [address] [phone] Red Blood Count 3.37 M/uL Low 3.90-5.40 [...] 40.4-72.8 Lymph % 9.7 % Low 20.0-42.0 Hartley % 6.3 % Normal 4.3-13.2 Eo% 2.9 % Normal 0.0-6.6 Bas% 0.3 % Normal 0.0-1.1 Immature Grans 1.3 % Normal 0.0-5.0 NRBC % 0.0 /100WBC < 10/ 100 WBC Neut# 10.04 K/uL High 1.8-7.0 Lymph # 1.22 K/uL Normal 1.0-4.0 Hartley # 0.79 K/uL Normal 0.3-0.9 Eos # 0.36 K/uL Normal 0.0-0.5 Baso # 0.04 K/uL Normal 0.0-0.1 Immature Grans Absolute 0.16 K/uL NRBC # 0.00 K/uL CBC W/Automated 01/26/2019 [facility] White Blood 9.3 K/uL Normal 3.1-10.7 [address] [place] [address] [phone] Red Blood Count 3.21 M/uL Low 3.90-5.40 [...] 40.4-72.8 Lymph % 11.2 % Low 20.0-42.0 Hartley % 6.3 % Normal 4.3-13.2 Eo% 3.7 % Normal 0.0-6.6 Bas% 0.4 % Normal 0.0-1.1 Immature Grans 1.0 % Normal 0.0-5.0 NRBC % 0.2 /100WBC < 10/ 100 WBC Neut# 7.18 K/uL High 1.8-7.0 Lymph # 1.04 K/uL Normal 1.0-4.0 Hartley # 0.58 K/uL Normal 0.3-0.9 Eos # 0.34 K/uL Normal 0.0-0.5 Baso # 0.04 K/uL Normal 0.0-0.1 Immature Grans Absolute 0.09 K/uL NRBC # 0.02 K/uL Comprehensive Metabolic 01/26/2019 [facility] Glucose 121 mg/dL High 74-106 Panel [address] [place] [address] [phone] BUN 29 mg/dL High 7-18 Creatinine 1.4 mg/dL High 0.6-1.3 Glom Filtration Rate, Estimate 38 mL/min >60 If 46 mL/min >60 9 BUN/Creat 20.7 ratio Sodium 137 mmol/L Normal [...] Phosphatase 147 U/L High 45-117 Iron-Tibc-%Sat 01/26/2019 [facility] Serum Iron 49 g/dL Low 50-170 [address] [place] [address] [phone] Total Iron Binding Capacity 335 g/dL Normal 250-450 Transferrin %Saturation 15 % Normal 12-57 Laboratory test 01/26/2019 [facility] Ferritin 75 ng/mL Normal 8-252 finding [address] [place] [address] [phone] Vitamin B12 And 01/26/2019 [facility] Vitamin B12 574 pg/mL Normal 193-986 Folate [address] [place] [address] [phone] Folic Acid > 20.0 ng/mL High 3.1-17.5 Basic Metabolic Panel 01/16/2019 [facility] Glucose 212 mg/dL High 74-106 10 [address] [place] [address] [phone] BUN 37 mg/dL High 7-18 Creatinine 1.4 mg/dL High 0.6-1.3 Glom Filtration Rate, Estimate 38 mL/min >60 If 46 mL/min >60 11 BUN/Creat 26.4 ratio Sodium 137 mmol/L Normal 136-145 Potassium 3.6 mmol/L Normal 3.5-5.1 Chloride 97 mmol/L Low 98-107 Carbon Dioxide 37 mmol/L High 21-32 Anion Gap 3 mEq/L Low 8-16 Calcium 9.3 mg/dL Normal 8.5-10.1 Laboratory test 01/16/2019 [facility] Magnesium 2.0 mg/dL Normal 1.8-2.4 finding [address] [place] [address] [phone] CBC W/Automated 12/12/2018 [facility] White Blood 8.2 K/uL Normal 3.1-10.7 12 Diff [address] [facility] [place] [address] [phone] Red Blood Count 3.43 M/uL Low 3.90-5.40 [...] 40.4-72.8 Lymph % 14.7 % Low 20.0-42.0 Hartley % 6.5 % Normal 4.3-13.2 Eo% 7.1 % High 0.0-6.6 Bas% 0.4 % Normal 0.0-1.1 Immature Grans 1.0 % Normal 0.0-5.0 NRBC % 0.0 /100WBC < 10/ 100 WBC Neut# 5.74 K/uL Normal 1.8-7.0 Lymph # 1.20 K/uL Normal 1.0-4.0 Hartley # 0.53 K/uL Normal 0.3-0.9 Eos # 0.58 K/uL High 0.0-0.5 Baso # 0.03 K/uL Normal 0.0-0.1 Immature Grans Absolute 0.08 K/uL NRBC # 0.00 K/uL Comprehensive Metabolic 12/12/2018 [facility] Glucose 150 mg/dL High 74-106 Panel [address] [place] [address] [phone] BUN 52 mg/dL High 7-18 Creatinine 1.6 mg/dL High 0.6-1.3 Glom Filtration Rate, Estimate 33 mL/min >60 If 40 mL/min >60 13 BUN/Creat 32.5 ratio Sodium 137 mmol/L Normal [...] Serum Iron 55 g/dL Normal 50-170 [address] [place], [place] [address] [phone] Total Iron Binding Capacity 357 g/dL Normal 250-450 Transferrin %Saturation 15 % Normal 12-57 Laboratory test 12/12/2018 [facility] Ferritin 142 ng/mL Normal 8-252 finding [address] [place] [address] [phone] Vitamin B12 And 12/12/2018 [facility] Vitamin B12 574 pg/mL Normal 193-986 Folate [address] [place], [place] [address] [phone] Folic Acid > 20.0 ng/mL High 3.1-17.5 Laboratory test 12/12/2018 [facility] Slide Review (SEE NOTE) 14 finding [address] [place], [place] [address] [phone] Comprehensive 10/29/2018 [facility] Glucose 137 mg/dL High 74-10 15 Metabolic Panel [address] [id number] [phone] BUN 71 mg/dL High 7-18 Creatinine 1.8 mg/dL High 0.6-1.3 Glom Filtration Rate, Estimate 29 mL/min >60 If 35 mL/min >60 16 BUN/Creat 39.4 ratio Sodium 135 mmol/L Low [...] Phosphatase 149 U/L High 45-117 Iron-Tibc-%Sat 10/29/2018 [facility] Serum Iron 44 g/dL Low 50-[address] [place] [address] [phone] Total Iron Binding Capacity 444 g/dL Normal 250-450 Transferrin %Saturation 10 % Low 12-57 Laboratory test 10/29/2018 [facility] Ferritin 59 Normal 8-[address] ng/[place] [address] [phone] Immunoglobulins 10/29/2018 [facility] Immunoglobulin 1303 700-160 A/G/M, QN, Ser [address] G,Quant,Serum mg/dL 0 [place] [address] [phone] Immunoglobulin A 312 mg/dL 64-422 Immunoglobulin M 35 mg/dL 26-217 17 Vitamin B12 And 10/29/2018 [facility] Vitamin B12 714 pg/mL Normal 193-[address] [place] [address] [phone] Folic Acid > 20.0 ng/mL High 3.1-17.5 Laboratory test 10/29/2018 [facility] Vitamin 47.1 30.0-100.0 [address] D,25-Hydroxy ng/[place] [address] [phone] LDH 245 U/L Normal 84-246 Sedimentation Rate 67 mm/hr High 2-55 19 Reticulocyte 10/29/2018 [facility] Retic 30.3 pg Normal 27.9-37.0 Count,Automated [address] [place] [address] [phone] Retic % 4.7 % High 0.5-1.8 Absolute Retic 170 K/uL High 24-84 Immature Retic Fraction 29.9 % High 2.9-15.5 CBC W/Automated 10/29/2018 [facility] White Blood 11.7 K/uL High 3.1-10.[address] [place] [address] [phone] Red Blood Count 3.65 M/uL Low 3.90-5.40 [...] 40.4-72.8 Lymph % 12.0 % Low 20.0-42.0 Hartley % 6.6 % Normal 4.3-13.2 Eo% 4.2 % Normal 0.0-6.6 Bas% 0.3 % Normal 0.0-1.1 Immature Grans 1.1 % Normal 0.0-5.0 NRBC % 0.0 /100WBC < 10/ 100 WBC Neut# 8.84 K/uL High 1.8-7.0 Lymph # 1.40 K/uL Normal 1.0-4.0 Hartley # 0.77 K/uL Normal 0.3-0.9 Eos # 0.49 K/uL Normal 0.0-0.5 Baso # 0.04 K/uL Normal 0.0-0.1 Immature Grans Absolute 0.13 K/uL NRBC # 0.00 K/uL Comprehensive 10/24/2018 [facility] Glucose 130 mg/dL High 74-106 20 Metabolic Panel [address] [place], [place] [address] [phone] BUN 92 mg/dL High 7-18 Creatinine 2.4 mg/dL High 0.6-1.3 Glom Filtration Rate, Estimate 21 mL/min >60 If 25 mL/min >60 21 BUN/Creat 38.3 ratio Sodium 135 mmol/L Low [...] Phosphatase 168 U/L High 45-117 Laboratory 10/22/2018 [facility] Vitamin 43.8 30.0-100.0 22, test finding [address] D,25-Hydroxy ng/mL 23 [place] [address] [phone] Vitamin B12 10/22/2018 [facility] Vitamin B12 717 Normal 193-[address] pg/[place] [address] [phone] Folic Acid > 20.0 ng/mL High 3.1-17.5 Laboratory test 10/22/2018 [facility] Ferritin 99 ng/mL Normal 8-252 24 finding [address] [place] [address] [phone] Iron-Tibc-%Sat 10/22/2018 [facility] Serum Iron 77 g/dL Normal 50-170 [address] [place] [address] [phone] Total Iron Binding Capacity 450 g/dL Normal 250-450 Transferrin %Saturation 17 % Normal 12-57 Comprehensive Metabolic 10/22/2018 [facility] Glucose 203 mg/dL High 74-106 Panel [address] [place], [place] [address] [phone] BUN 85 mg/dL High 7-18 Creatinine 2.0 mg/dL High 0.6-1.3 Glom Filtration Rate, Estimate 25 mL/min >60 If 31 mL/min >60 25 BUN/Creat 42.5 ratio Sodium 129 mmol/L Low [...] 170 U/L High 45-117 CBS W/Automated 10/22/2018 [facility] White Blood 12.1 K/uL High 3.1-10.[address] [place] [address] [phone] Red Blood Count 3.51 M/uL Low 3.90-5.40 [...] 40.4-72.8 Lymph % 10.0 % Low 20.0-42.0 Hartley % 6.0 % Normal 4.3-13.2 Eo% 5.0 % Normal 0.0-6.6 Bas% 0.2 % Normal 0.0-1.1 Immature Grans 2.2 % Normal 0.0-5.0 NRBC % 0.2 /100WBC < 10/ 100 WBC Neut# 9.23 K/uL High 1.8-7.0 Lymph # 1.20 K/uL Normal 1.0-4.0 Hartley # 0.72 K/uL Normal 0.3-0.9 Eos # 0.60 K/uL High 0.0-0.5 Baso # 0.03 K/uL Normal 0.0-0.1 Immature Grans Absolute 0.27 K/uL NRBC # 0.02 K/uL 1 D64.9 2 Note: Persistent reduction for 3 months or more in an eGFR <60 mL/min/1.73 m2 defines CKD. Patients with eGFR values >/=60 mL/min/1.73 m2 may also have CKD if evidence of persistent proteinuria is present. The original MDRD equation for estimated GFR is not valid for patients less than 18 years of age. Additional information may be found at [email or web address]. 3 SEPSIS UTI, LEUKOCYTOSIS 4 Note: Persistent reduction for 3 months or more in an eGFR <60 mL/min/1.73 m2 defines CKD. Patients with eGFR values >/=60 mL/min/1.73 m2 may also have CKD if evidence of persistent proteinuria is present. The original MDRD equation for estimated GFR is not valid for patients less than 18 years of age. Additional information may be found at [email or web address]. 5 Method: [employer] Hemoccult Card 6 R06.02 7 Note: Persistent reduction for 3 months or more in an eGFR <60 mL/min/1.73 m2 defines CKD. Patients with eGFR values >/=60 mL/min/1.73 m2 may also have CKD if evidence of persistent proteinuria is present. The original MDRD equation for estimated GFR is not valid for patients less than 18 years of age. Additional information may be found at [email or web address]. 8 C34.32 J44.9 9 Note: Persistent reduction for 3 months or more in an eGFR <60 mL/min/1.73 m2 defines CKD. Patients with eGFR values >/=60 mL/min/1.73 m2 may also have CKD if evidence of persistent proteinuria is present. The original MDRD equation for estimated GFR is not valid for patients less than 18 years of age. Additional information may be found at [email or web address]. 10 R60.0 11 Note: Persistent reduction for 3 months or more in an eGFR <60 mL/min/1.73 m2 defines CKD. Patients with eGFR values >/=60 mL/min/1.73 m2 may also have CKD if evidence of persistent proteinuria is present. The original MDRD equation for estimated GFR is not valid for patients less than 18 years of age. Additional information may be found at [email or web address]. 12 C34.32 C34.31 13 Note: Persistent reduction for 3 months or more in an eGFR <60 mL/min/1.73 m2 defines CKD. Patients with eGFR values >/=60 mL/min/1.73 m2 may also have CKD if evidence of persistent proteinuria is present. The original MDRD equation for estimated GFR is not valid for patients less than 18 years of age. Additional information may be found at [email or web address]. 14 Instrument flagged sample for slide review. Less than 10% Bands seen, no other immature WBC's seen. RBC morphology essentially normal. Platelet estimate = NORMAL, FEW FIBRIN STRANDS SEEN ON SLIDE 15 C34.32 J44.9 16 Note: Persistent reduction for 3 months or more in an eGFR <60 mL/min/1.73 m2 defines CKD. Patients with eGFR values >/=60 mL/min/1.73 m2 may also have CKD if evidence of persistent proteinuria is present. The original MDRD equation for estimated GFR is not valid for patients less than 18 years of age. Additional information may be found at [email or web address]. 17 Performed at: - [facility] [address] [id number] Svp Of Digital: Eryn Balderas MD, Phone: [phone] 18 Vitamin D deficiency has been defined by the Baker of Medicine and an Endocrine Society practice guideline as a level of serum 25-OH vitamin D less than 20 ng/mL (1,2). The Endocrine Society went on to further define vitamin D insufficiency as a level between 21 and 29 ng/mL (2). 1. IOM (Baker of Medicine). 2010. Dietary reference intakes for calcium and D. [place]: The National Academies Press. 2. Martin MF, Sara [place], [address], et al. Evaluation, treatment, and prevention of vitamin D deficiency: an Endocrine Society clinical practice guideline. JCEM. 2010; 96(7):1911-30. Performed at: - [facility] [id number] Svp Of Digital: Eryn Balderas MD, Phone: [phone] 19 This result was obtained with an ESR method that is not based on the standard Westergren Method. When comparing results obtained from the traditional Westergren ESR and this method it is important to refer to the reference range for each method. Method: Capillary Photometry 20 C34.32 21 Note: Persistent reduction for 3 months or more in an eGFR <60 mL/min/1.73 m2 defines CKD. Patients with eGFR values >/=60 mL/min/1.73 m2 may also have CKD if evidence of persistent proteinuria is present. The original MDRD equation for estimated GFR is not valid for patients less than 18 years of age. Additional information may be found at [email or web address]. 22 C34.32 J44.9 23 Vitamin D deficiency has been defined by the Baker of Medicine and an Endocrine Society practice guideline as a level of serum 25-OH vitamin D less than 20 ng/mL (1,2). The Endocrine Society went on to further define vitamin D insufficiency as a level between 21 and 29 ng/mL (2). 1. IOM (Baker of Medicine). 2010. Dietary reference intakes for calcium and D. [place]: The National Academies Press. 2. Martin MF, [place], [address], et al. Evaluation, treatment, and prevention of vitamin D deficiency: an Endocrine Society clinical practice guideline. JCEM. 2010; 96(7):1911-30. Performed at: RN - [facility] [address] [id number] Svp Of Digital: Eryn Balderas MD, Phone: [phone] 24 CHECKED CALLED RUPA Restrepo WITH POTASSIUM AT 1201 10/22/18 25 Note: Persistent reduction for 3 months or [...] [email or web address]. Procedures Date Code Description Status 02/23/2019 34181 Echocardiogram Complete Completed 02/22/2019 87573 EKG Interpretation And Report Only Completed 01/14/2019 43035 EKG-Tracing And Report Completed 12/05/2010 [id number] Mammogram Completed 11/13/2010 [id number] Bone Mineral Density Test Completed Medical Devices [...] R94.30 Abnormal result of cardiovascular function study, unsp Office Visit 02/04/2019 3:00p Pulmonology Joanne Garzon PA R05 Cough R09.02 Hypoxemia R60.0 Localized edema Office Visit 02/03/2019 1:30p Oncology Office Niecy Pacheco E61.1 Iron deficiency B., [employer] E53.9 Vitamin B deficiency, unspecified D64.9 Anemia, unspecified Office Visit 01/14/2019 8:00a Cardiology Office Emelina R60.0 Localized edema Ann Jenkins PA R94.31 Abnormal electrocardiogram [ECG] [EKG] E87.6 Hypokalemia R07.9 Chest pain, unspecified Office Visit 12/23/2018 11:30a Infusion Center Niecy Pacheco E61.1 Iron deficiency B., [employer] D64.9 Anemia, unspecified 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, left bronchus or lung Office Visit 10/29/2018 12:30p Oncology Office Rossy C34.32 Malignant Letty, DO neoplasm of lower lobe, left bronchus or lung D64.9 Anemia, unspecified Office Visit 2018 3:30p Pulmonology Frederick Rossi MD J44.9 Chronic obstructive pulmonary disease, unspecified R09.02 Hypoxemia Z99.81 Dependence on supplemental oxygen Assessments Date Code Description Provider 03/10/2019 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, left Boufal, Letty, DO bronchus or lung 03/10/2019 D64.9 Anemia, unspecified Boufal, Letty, DO 03/10/2019 R93.5 Imaging of abdomen abnormal Letty Blair, DO 03/10/2019 Z98.890 History of colonoscopy Letty Blair, DO 03/03/2019 I50.32 Chronic diastolic (congestive) heart Chelita [...] electrocardiogram [ECG] [EKG] Chelita Art MD 02/23/2019 I50.31 Acute diastolic (congestive) heart Chelita Art MD failure 02/23/2019 N39.0 Urinary tract infection, site not Clint Fajardo M.D. specified 02/23/2019 R65.21 Severe sepsis with septic shock Clint Fajardo M.D. 02/23/2019 I27.20 Pulmonary hypertension, unspecified Chelita Art MD 02/23/2019 I50.30 Unspecified diastolic (congestive) Clint Fajardo M.D. heart failure 02/23/2019 I31.3 Pericardial effusion (noninflammatory) Chelita Art MD 02/23/2019 R79.89 Other specified abnormal findings of Chelita Art MD blood chemistry 02/22/2019 J96.21 Acute and chronic respiratory failure Deb Amezcau M.D. with hypoxia 02/22/2019 R94.31 Abnormal electrocardiogram [...] 02/18/2019 I50.32 Chronic diastolic (congestive) heart Ann Tarango, PA failure 02/18/2019 J44.9 Chronic obstructive pulmonary disease, Gabriela Tarangolyss B., PA unspecified 02/18/2019 E87.5 Hyperkalemia Ann Tarango B., PA 02/18/2019 R94.30 Abnormal result of cardiovascular Ann Tarango, PA function study, unspecified 02/04/2019 R05 Cough Joanne Garzon, VASQUEZ 02/04/2019 R09.02 Hypoxemia Joanne Garzon, PA 02/04/2019 R60.0 Localized edema Joanne Gazron, PA 02/03/2019 E61.1 Iron deficiency Niecy Pacheco, WIRELESS SALES ASSOCIATE 02/03/2019 E53.9 Vitamin B deficiency, unspecified Niecy Pacheco, WIRELESS SALES ASSOCIATE 02/03/2019 D64.9 Anemia, unspecified Niecy Pacheco, WIRELESS SALES ASSOCIATE 01/26/2019 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, [...] PA 12/23/2018 E61.1 Iron deficiency Niecy Pacheco, WIRELESS SALES ASSOCIATE 12/23/2018 D64.9 Anemia, unspecified Niecy Pacheco, WIRELESS SALES ASSOCIATE 12/23/2018 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, left Niecy Pacheco , WIRELESS SALES ASSOCIATE bronchus or lung 10/29/2018 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, left Boufal, Letty, DO bronchus or lung 10/29/2018 D64.9 Anemia, unspecified Boufal, Letty, DO 10/24/2018 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, left Boufal, Letty, DO bronchus or lung 10/24/2018 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, left Oncology Nurse bronchus or lung 10/22/2018 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, left BoufalArit, DO bronchus or lung 10/22/2018 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, left Oncology Nurse bronchus or lung 10/22/2018 J44.9 Chronic obstructive pulmonary disease, Boufal, Letty, DO unspecified 10/22/2018 J44.9 Chronic obstructive pulmonary disease, Oncology Nurse unspecified 10/07/2018 J96.01 Acute respiratory failure with hypoxia CadetAnanth, RN OR LPN 10/07/2018 I50.33 Acute on chronic diastolic CadAnanth monroe, RN OR LPN (congestive) heart failure 10/07/2018 E87.5 Hyperkalemia Ananth Guy, RN OR LPN 10/07/2018 N18.6 End stage renal disease Ananth Guy, RN OR LPN 10/06/2018 J96.01 Acute respiratory failure with hypoxia Ananth Guy, RN OR LPN 10/06/2018 I50.33 Acute on chronic diastolic CadAnanth monroe FNP (congestive) heart failure 10/06/2018 E87.5 Hyperkalemia Ananth Guy, RN OR LPN 10/06/2018 N18.6 End stage renal disease Ananth Guy, RN OR LPN 10/05/2018 J96.01 Acute respiratory failure with hypoxia [...] diastolic Tate Reynoso M.D., (congestive) heart failure [facility] 10/02/2018 J96.01 Acute respiratory failure with hypoxia Gregor Wheeler MD 10/02/2018 J96.01 Acute respiratory failure with hypoxia Tate Reynoso M.D., [facility] 10/02/2018 I50.33 Acute on chronic diastolic Gregor Wheeler MD (congestive) heart failure 10/02/2018 E87.5 Hyperkalemia Tate Reynoso M.D., [facility] 10/02/2018 E87.5 Hyperkalemia Gregor Wheeler MD 10/02/2018 I73.9 Peripheral vascular disease, Tate Reynoso M.D., unspecified [facility] 10/02/2018 N18.6 End stage renal disease Gregor Wheeler MD 10/02/2018 R60.0 Localized edema Tate Reynoso M.D., [facility] 10/02/2018 I95.89 Other hypotension Tate Reynoso M.D., [facility] 10/01/2018 J96.01 Acute respiratory failure with hypoxia Gregor Wheeler MD 10/01/2018 I50.33 Acute on chronic diastolic Gregor Wheeler MD (congestive) heart failure 10/01/2018 E87.5 HyperkaleGregor Stephens MD 10/01/2018 N18.6 End stage renal disease Gregor Wheeler MD 2018 J44.9 Chronic obstructive pulmonary disease, Frederick Rossi MD unspecified 2018 R09.02 Hypoxemia Frederick Rossi MD 2018 Z99.81 Dependence on supplemental oxygen Frederick Rossi MD Plan of Treatment Future Appointment(s):04/29/2019 11:30 am - Chelita Art MD at Cardiology Tgqwqg7803/25/2019 2:00 pm - Jeffy Goldberg MD at Pulmonology Functional Status Description No Information Available Mental Status Description No Information Available Referrals Description No Information Available
--- OUTSIDE RECORDS SUMMARY | 2019-03-23 14:17 | XMS REPORT | Continuity of Care Document ---
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 MD Jeffy Provide 02 cylinders for portability. Azithromycin take two tablets 6tabs Yusuf, 02/04/2019 250mg today, then one a MD Jeffy Tablets day for the next four days. Flovent Diskus inhale one puff by 3months Frederick Rossi MD 04/01/2018 mouth twice a day 100mcg/Blist Aerosol (rinse mouth after use) Acapella please provide 1 1units J44.9 Frederick Rossi MD [facility] diagnosis: copd use three times a day as needed to clear secretions. Take 10 breaths each time. Proair HFA 2 inhalations every 25.5gm Frederick Rossi MD 03/01/2017 4 hours as needed 108(90Base) mcg/Act for shortness of Aerosol breath. Unifine Pentips Ruben Use To Inject 4units Thao Monson M.D. 02/18/2017 6mm 100'S 31G /4 Insulin Four Times A 31G Day 1/4 Oxygen please provide oxy Yusuf, 01/28/2017 pendant to assist in MD Jeffy maintaining o2 saturations between 89-95% dx: copd Anoro Ellipta Use 1 Inhalation 180unit J44.9 Yusuf, 10/31/2016 Once Daily s MD Jeffy 62.5-25mcg/Inh Aerosol Lancets Freestyle Test Finger Stick 4units Thao Monson M.D. 04/23/2016 100'S 28G Four Times A Day 28G Freestyle Lite Test test blood sugar 4x 600unit Rickie Abarca, DO 04/05 a day s Strips Pravastatin Sodium 1/2 by mouth at 90tabs E78.2 Thao Monson M.D. 2015 bedtime 10mg Tablets [place] use to inject 400unit Thao Monson M.D. 01/30/2016 31G X 6 insulin 4x/day s mm Misc Lancets Ultra Fine Test fs 4x/day 400unit Thao Monson M.D. 03/08/2015 s Misc [facility] High Potency Once Daily Unknown 04/08/2014 Vitamin D 1000Unit Tablets Klor-Con M20 1 by mouth twice 120tabs Tate Reynoso, 20Meq daily, extra tablet M.DElder, FACC Tablets ER on days where metolazone [...] Unknown Extract 1000mg Capsules History Medications Metolazone take 1 tab (30 30tabs R60.0 Chelita Art MD 01/14/2019 - 2.5mg minutes before Unknown Tablets torsemide) prn edema or weight gain >2-3 lbs Metolazone Take 1 Tablet 30 90tabs R60.0 Edgardo, 11/03/2018 - 5mg Minutes Before Tate Bangura M.D., 01/14/2019 Tablets Torsemide Dose FACC Every Other Day Mucinex Twice a day as 60tabs J44.9 Frederick Rossi, 2018 - 600mg needed for cough. Unknown Tablets ER 12HR Medications Administered in Office Medication SIG Qnty Indications Ordering Provider Date Vitamin B12 Injection 1000 Letty Blair, 11/13/2017 mcg/Ml Injection Theraputic Or Diagnostic Letty Blair, 11/13/2017 Injection Injection Depo-Medrol 20mg Annemarie Plasencia [facility] 01/29/2013 Injection Immunizations Description No Information Available Vital Signs Date Vital Result Comment 02/18/2019 8:04am BP Systolic Sitting Left Arm 112 mmHg BP Diastolic Sitting Left Arm 66 mmHg Heart Rate 98 /min Respiratory Rate 20 /min Height 62 inches 5'2" unable to stand Weight 215.00 lb BMI (Body Mass Index) 39.3 kg/m2 BSA (Body Surface Area) 1.97 m2 [place] body weight in kilograms 50 kg O2 Saturation Level with Exercise 935 % 02/04/2019 2:58pm BP Systolic Sitting Right Arm 109 mmHg BP Diastolic Sitting Right Arm 50 mmHg Heart Rate 102 /min Respiratory Rate 20 /min O2 % BldC Oximetry 90 % nc/6l Results Test Acquired Date Facility Test Result H/L Range Note CBC 02/04/2019 [facility] White Blood 12.6 K/uL High 3.1-10.7 1 W/Automated [address] [place] [address] [phone] Red Blood Count 3.37 M/uL Low 3.90-5.40 [...] 40.4-72.8 Lymph % 9.7 % Low 20.0-42.0 [place] % 6.3 % Normal 4.3-13.2 Eo% 2.9 % Normal 0.0-6.6 Bas% 0.3 % Normal 0.0-1.1 Immature Grans 1.3 % Normal 0.0-5.0 NRBC % 0.0 /100WBC < 10/ 100 WBC Neut# 10.04 K/uL High 1.8-7.0 Lymph # 1.22 K/uL Normal 1.0-4.0 [place] # 0.79 K/uL Normal 0.3-0.9 Eos # 0.36 K/uL Normal 0.0-0.5 Baso # 0.04 K/uL Normal 0.0-0.1 Immature Grans Absolute 0.16 K/uL NRBC # 0.00 K/uL Comprehensive Metabolic 02/04/2019 [facility] Glucose 112 mg/dL High 74-106 Panel [address] [place] [address] [phone] BUN 50 mg/dL High 7-18 Creatinine 1.5 [...] 116 U/L Normal 45-117 CBC W/Automated 01/26/2019 [facility] White Blood 9.3 K/uL Normal 3.1-10.7 [address] [place] [address] [phone] Red Blood Count 3.21 M/uL Low 3.90-5.40 [...] 40.4-72.8 Lymph % 11.2 % Low 20.0-42.0 [place] % 6.3 % Normal 4.3-13.2 Eo% 3.7 % Normal 0.0-6.6 Bas% 0.4 % Normal 0.0-1.1 Immature Grans 1.0 % Normal 0.0-5.0 NRBC % 0.2 /100WBC < 10/ 100 WBC Neut# 7.18 K/uL High 1.8-7.0 Lymph # 1.04 K/uL Normal 1.0-4.0 [place] # 0.58 K/uL Normal 0.3-0.9 Eos # 0.34 K/uL Normal 0.0-0.5 Baso # 0.04 K/uL Normal 0.0-0.1 Immature Grans Absolute 0.09 K/uL NRBC # 0.02 K/uL Comprehensive Metabolic 01/26/2019 [facility] Glucose 121 mg/dL High 74-[address] [place] [address] [phone] BUN 29 mg/dL High 7-18 Creatinine 1.4 [...] Phosphatase 147 U/L High 45-117 Iron-Tibc-%Sat 01/26/2019 [facility] Serum Iron 49 g/dL Low 50-170 [address] [place] [address] [phone] Total Iron Binding Capacity 335 g/dL Normal 250-450 Transferrin %Saturation 15 % Normal 12-57 Laboratory test 01/26/2019 [facility] Ferritin 75 ng/mL Normal 8-252 finding [address] [place] [address] [phone] Vitamin B12 And 01/26/2019 [facility] Vitamin B12 574 pg/mL Normal 193-986 Folate [address] [place] [address] [phone] Folic Acid > 20.0 ng/mL High 3.1-17.5 Basic Metabolic Panel 01/16/2019 [facility] Glucose 212 mg/dL High 74-106 5 [address] [place] [address] [phone] BUN 37 mg/dL High 7-18 Creatinine 1.4 mg/dL High 0.6-1.3 Glom Filtration Rate, Estimate 38 mL/min >60 If 46 mL/min >60 6 BUN/Creat 26.4 ratio Sodium 137 mmol/L Normal 136-145 Potassium 3.6 mmol/L Normal 3.5-5.1 Chloride 97 mmol/L Low 98-107 Carbon Dioxide 37 mmol/L High 21-32 Anion Gap 3 mEq/L Low 8-16 Calcium 9.3 mg/dL Normal 8.5-10.1 Laboratory 01/16/2019 [facility] Magnesium 2.0 mg/dL Normal 1.8-2.4 test finding [address] [place] [address] [phone] Laboratory 12/12/2018 [facility] Slide Review (SEE 7, 8 test finding [address] [facility] NOTE) [place] [address] [phone] Vitamin B12 12/12/2018 [facility] Vitamin B12 574 pg/mL Normal 193-986 And Folate [address] [place], [place] [address] [phone] Folic Acid > 20.0 ng/mL High 3.1-17.5 Laboratory test 12/12/2018 [facility] Ferritin 142 ng/mL Normal 8-252 finding [address] [place], [place] [address] [phone] Iron-Tibc-%Sat 12/12/2018 [facility] Serum Iron 55 g/dL Normal 50-170 [address] [place] [address] [phone] Total Iron Binding Capacity 357 g/dL Normal 250-450 Transferrin %Saturation 15 % Normal 12-57 Comprehensive Metabolic 12/12/2018 [facility] Glucose 150 mg/dL High 74-106 Panel [address] [place], [place] [address] [phone] BUN 52 mg/dL High 7-18 Creatinine 1.6 [...] 123 U/L High 45-117 CBC W/Automated 12/12/2018 [facility] White Blood 8.2 K/uL Normal 3.1-10.[address] Count [place], [place] [address] [phone] Red Blood Count 3.43 M/uL Low 3.90-5.40 [...] 40.4-72.8 Lymph % 14.7 % Low 20.0-42.0 [place] % 6.5 % Normal 4.3-13.2 Eo% 7.1 % High 0.0-6.6 Bas% 0.4 % Normal 0.0-1.1 Immature Grans 1.0 % Normal 0.0-5.0 NRBC % 0.0 /100WBC < 10/ 100 WBC Neut# 5.74 K/uL Normal 1.8-7.0 Lymph # 1.20 K/uL Normal 1.0-4.0 [place] # 0.53 K/uL Normal 0.3-0.9 Eos # 0.58 K/uL High 0.0-0.5 Baso # 0.03 K/uL Normal 0.0-0.1 Immature Grans Absolute 0.08 K/uL NRBC # 0.00 K/uL Reticulocyte 10/29/2018 [facility] Retic 30.3 Normal 27.9-37.0 10 Count,Automated [address] Hemoglobin pg [place], [place] [address] [phone] Retic % 4.7 % High 0.5-1.8 Absolute Retic 170 K/uL High 24-84 Immature Retic Fraction 29.9 % High 2.9-15.5 Laboratory test 10/29/2018 [facility] Vitamin 47.1 30.0-100.0 [address] D,25-Hydroxy ng/[place] [address] [phone] LDH 245 U/L Normal 84-246 Sedimentation Rate 67 mm/hr High 2-55 12 Vitamin B12 And 10/29/2018 [facility] Vitamin B12 714 pg/mL Normal 193-[address] [place], [place] [address] [phone] Folic Acid > 20.0 ng/mL High 3.1-17.5 Immunoglobulins 10/29/2018 [facility] Immunoglobulin [phone] A/G/M, QN, Ser [address] G,Quant,Serum mg/dL [place], [place] [address] [phone] Immunoglobulin A 312 mg/dL 64-422 Immunoglobulin M 35 mg/dL 26-217 13 Laboratory test 10/29/2018 [facility] Ferritin 59 ng/mL Normal 8-[address] [place] [address] [phone] CBC W/Automated 10/29/2018 [facility] White Blood 11.7 K/uL High 3.1-10.[address] [place] [address] [phone] Red Blood Count 3.65 M/uL Low 3.90-5.40 [...] 40.4-72.8 Lymph % 12.0 % Low 20.0-42.0 [place] % 6.6 % Normal 4.3-13.2 Eo% 4.2 % Normal 0.0-6.6 Bas% 0.3 % Normal 0.0-1.1 Immature Grans 1.1 % Normal 0.0-5.0 NRBC % 0.0 /100WBC < 10/ 100 WBC Neut# 8.84 K/uL High 1.8-7.0 Lymph # 1.40 K/uL Normal 1.0-4.0 [place] # 0.77 K/uL Normal 0.3-0.9 Eos # 0.49 K/uL Normal 0.0-0.5 Baso # 0.04 K/uL Normal 0.0-0.1 Immature Grans Absolute 0.13 K/uL NRBC # 0.00 K/uL Comprehensive Metabolic 10/29/2018 [facility] Glucose 137 mg/dL High 74-106 Panel [address] [place] [address] [phone] BUN 71 mg/dL High 7-18 Creatinine 1.8 [...] Phosphatase 149 U/L High 45-117 Iron-Tibc-%Sat 10/29/2018 [facility] Serum Iron 44 g/dL Low 50-170 [address] [place] [address] [phone] Total Iron Binding Capacity 444 g/dL Normal 250-450 Transferrin %Saturation 10 % Low 12-57 Comprehensive 10/24/2018 [facility] Glucose 130 mg/dL High 74-106 15 Metabolic Panel [address] [place] [address] [phone] BUN 92 mg/dL High 7-18 Creatinine 2.4 [...] Phosphatase 168 U/L High 45-117 Laboratory 10/22/2018 [facility] Vitamin 43.8 30.0-100.0 17, test finding 134 [facility] D,25-Hydroxy ng/mL [address] [place] [address] [phone] Vitamin B12 10/22/2018 [facility] Vitamin B12 717 Normal 193-[address] pg/mL [place], [place] [address] [phone] Folic Acid > 20.0 ng/mL High 3.1-17.5 Laboratory test 10/22/2018 [facility] Ferritin 99 ng/mL Normal 8-252 19 finding [address] [place], [place] [address] [phone] Iron-Tibc-%Sat 10/22/2018 [facility] Serum Iron 77 g/dL Normal 50-170 [address] [place], [place] [address] [phone] Total Iron Binding Capacity 450 g/dL Normal 250-450 Transferrin %Saturation 17 % Normal 12-57 Comprehensive Metabolic 10/22/2018 [facility] Glucose 203 mg/dL High 74-[address] [place] [address] [phone] BUN 85 mg/dL High 7-18 Creatinine 2.0 [...] 170 U/L High 45-117 CBS W/Automated 10/22/2018 [facility] White Blood 12.1 K/uL High 3.1-10.[address] [place] [address] [phone] Red Blood Count 3.51 M/uL Low 3.90-5.40 [...] 40.4-72.8 Lymph % 10.0 % Low 20.0-42.0 [place] % 6.0 % Normal 4.3-13.2 Eo% 5.0 % Normal 0.0-6.6 Bas% 0.2 % Normal 0.0-1.1 Immature Grans 2.2 % Normal 0.0-5.0 NRBC % 0.2 /100WBC < 10/ 100 WBC Neut# 9.23 K/uL High 1.8-7.0 Lymph # 1.20 K/uL Normal 1.0-4.0 [place] # 0.72 K/uL Normal 0.3-0.9 Eos # [...] D deficiency has been defined by the [place] [employer] and an Endocrine Society practice guideline as a level of serum 25-OH vitamin D less than 20 ng/mL (1,2). The Endocrine Society went on to further define vitamin D insufficiency as a level between 21 and 29 ng/mL (2). 1. IOM ([place] [employer]). 2010. Dietary reference intakes for calcium and D. [place]: The National Academies Press. 2. Martin MF, Sara [place], [address], et al. Evaluation, treatment, and prevention of vitamin D deficiency: an Endocrine Society clinical practice guideline. JCEM. 2010; 96(7):1911-30. Performed at: [facility] [address] [id number] Usability Engineer: Eryn Balderas MD, Phone: [phone] This result was obtained with an ESR method that is not based on the standard Westergren Method. When comparing results obtained from the traditional Westergren ESR and this method it is important to refer to the reference range for each method. Method: Capillary Photometry 13 Performed at: [facility] [address] [id number] Usability Engineer: Eryn Balderas MD, Phone: [phone] Note: Persistent reduction for 3 months [...] D deficiency has been defined by the [place] [employer] and an Endocrine Society practice guideline as a level of serum 25-OH vitamin D less than 20 ng/mL (1,2). The Endocrine Society went on to further define vitamin D insufficiency as a level between 21 and 29 ng/mL (2). 1. IOM ([place] [employer]). 2010. Dietary reference intakes for calcium and D. [place]: The National Academies Press. 2. Martin MF, [place], [address], et al. Evaluation, treatment, and prevention of vitamin D deficiency: an Endocrine Society clinical practice guideline. JCEM. 2010; 96(7):1911-30. Performed at: RN - [facility] [address] [id number] Usability Engineer: Eryn Balderas MD, Phone: [phone] CHECKED CALLED RUPA C. WITH POTASSIUM AT 1201 10/22/18 20 Note: [...] [email or web address]. Procedures Date Code Description Status 01/14/2019 90939 EKG-Tracing And Report Completed 09/04/2018 26932 Echocardiogram Complete Completed 12/05/2010 11151331 Mammogram Completed 11/13/2010 [id number] Bone Mineral Density Test Completed Medical Devices Description No Information Available Encounters Type Date Location Provider Dx Diagnosis Office Visit 02/18/2019 Cardiology Office Ann Tarango I50.32 Chronic diastolic 8:00a VASQUEZ Jenkins (congestive) heart failure J44.9 Chronic obstructive pulmonary disease, unspecified E87.5 Hyperkalemia R94.30 Abnormal result of cardiovascular function study, unsp Office Visit 02/04/2019 3:00p Pulmonology Joanne Garzon, VASQUEZ R05 Cough R09.02 Hypoxemia R60.0 Localized edema Office Visit 02/03/2019 1:30p Oncology Office Niecy Pacheco E61.1 Iron deficiency B., PIPING DESIGNER E53.9 Vitamin B deficiency, unspecified D64.9 Anemia, unspecified Office Visit 01/14/2019 8:00a Cardiology Office Emelina, R60.0 Localized edema Ann Jenkins, PA R94.31 Abnormal electrocardiogram [ECG] [EKG] E87.6 Hypokalemia R07.9 Chest pain, unspecified Office Visit 12/23/2018 11:30a Infusion Center Niecy Pacheco E61.1 Iron deficiency B., PIPING DESIGNER D64.9 Anemia, unspecified 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, left bronchus or lung Office Visit 10/29/2018 12:30p Oncology Office Rossy, C34.32 Malignant Letty, DO neoplasm of lower lobe, left bronchus or lung D64.9 Anemia, unspecified Office Visit 2018 3:30p Pulmonology Frederick Rossi MD J44.9 Chronic obstructive pulmonary disease, unspecified R09.02 Hypoxemia Z99.81 Dependence on supplemental oxygen Assessments Date Code Description Provider 02/18/2019 I50.32 Chronic diastolic (congestive) heart Ann Tarango, PA failure 02/18/2019 J44.9 Chronic obstructive pulmonary disease, Ann Tarango, PA unspecified 02/18/2019 E87.5 Hyperkalemia Ann Tarango, PA 02/18/2019 R94.30 Abnormal result of cardiovascular Ann Tarango, PA function study, unspecified 02/04/2019 R05 Cough Joanne Garzon PA 02/04/2019 R09.02 Hypoxemia Joanne Garzon PA 02/04/2019 R60.0 Localized edema Joanne Garzon PA 02/03/2019 E61.1 Iron deficiency Niecy Pacheco, PIPING DESIGNER 02/03/2019 E53.9 Vitamin B deficiency, unspecified Niecy Pacheco, PIPING DESIGNER 02/03/2019 D64.9 Anemia, unspecified Niecy Pacheco, PIPING DESIGNER 01/26/2019 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, [...] PA 12/23/2018 E61.1 Iron deficiency Niecy Pacheco, PIPING DESIGNER 12/23/2018 D64.9 Anemia, unspecified Niecy Pacheco, PIPING DESIGNER 12/23/2018 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, left Niecy Pacheco , PIPING DESIGNER bronchus or lung 10/29/2018 C34.32 Malignant neoplasm [...] Acute respiratory failure with hypoxia Ananth Guy, CLE[employer]PHOLSTERY 10/07/2018 I50.33 Acute on chronic diastolic CadAnanth monroe, CLE[employer]ER [employer]PET [employer] UPHOLSTERY (congestive) heart failure 10/07/2018 E87.5 Hyperkalemia Ananth Guy, CLE[employer] UPHOLSTERY 10/07/2018 N18.6 End stage renal disease Ananth Guy, [employer] UPHOLSTERY 10/06/2018 J96.01 Acute respiratory failure with hypoxia Ananth Guy, [employer]PHOLST[employer] 10/06/2018 I50.33 Acute on chronic diastolic CadAnanth monroe, CLE[employer]PET [employer] UPHOLSTERY (congestive) heart failure 10/06/2018 E87.5 Hyperkalemia Ananth Guy, [employer]PHOLSTERY 10/06/2018 N18.6 End stage renal disease Ananth Guy, CLE[employer] UPHOLSTERY 10/05/2018 J96.01 Acute respiratory failure with hypoxia [...] diastolic Tate Reynoso M.D., (congestive) heart failure [facility] 10/02/2018 J96.01 Acute respiratory failure with hypoxia Gregor Wheeler MD 10/02/2018 J96.01 Acute respiratory failure with hypoxia Tate Reynoso M.D., [facility] 10/02/2018 I50.33 Acute on chronic diastolic Gregor Wheeler MD (congestive) heart failure 10/02/2018 E87.5 Hyperkalemia Tate Reynoso M.D., [facility] 10/02/2018 E87.5 Hyperkalemia Gregor Wheeler MD 10/02/2018 I73.9 Peripheral vascular disease, Tate Reynoso M.D., unspecified [facility] 10/02/2018 N18.6 End stage renal disease Gregor Wheeler MD 10/02/2018 R60.0 Localized edema Tate Reynoso M.D., [facility] 10/02/2018 I95.89 Other hypotension Tate Reynoso M.D., [facility] 10/01/2018 J96.01 Acute respiratory failure with hypoxia Gregor Wheeler MD 10/01/2018 I50.33 Acute on chronic diastolic Gregro Wheeler MD (congestive) heart failure 10/01/2018 E87.5 [...] Shyla Garvin NP Plan of Treatment Future Appointment(s):03/03/2019 1:20 pm - Chelita Art MD at Cardiology Ndzpzy8203/25/2019 2:00 pm - Jeffy Goldberg MD at Msbpkjuzshq79/26/2019 2:30 pm - Letty Blair DO at Oncology Jzrekp1902/18/2019 - Ann Tarango , PAI50.32 Chronic diastolic (congestive) heart failureNew Medication: Metolazone 2.5 mg - take 1 tab (30 minutes before am torsemide) dailyNew Labs: Basic Metabolic Panel, Ordered: 02/18/19Magnesium, Ordered: 02/18/19Comments: She will take metolazone 2.5mg daily (30 minutes before AM torsemide) for the next week. She will have a standing order for BMP as she has CKD and history of both hypokalemia and hyperkalemia. She would benefit from a nutrition consult given her recurrent volume overload, DM, and CKD.J44.9 Chronic obstructive pulmonary disease, unspecifiedComments:Followed by pulmonary.E87.5 HyperkalemiaNew Labs:Basic Metabolic Panel, Ordered: 02/18/19Magnesium, Ordered : 02/18/19Comments:Standing order for BMP faxed to lab.R94.30 Abnormal result of cardiovascular function study, unspecifiedComments:Given her lack of symptoms , will continue with conservative management and medical therapy.AllFollow up: Labs in 1 week F/U 2-3 weeks Functional Status Description No Information Available Mental Status Description No Information Available Referrals Description No Information Available
--- OUTSIDE RECORDS SUMMARY | 2019-03-23 14:17 | XMS REPORT | Summary of Care ---
:1935 Author Organization [facility] Address [address] [place] [address] Care Team Providers Name Role Phone Dea Johnson MD Primary Care Provider Reason for Referral Consultation (STAT) Status Reason Specialty Diagnoses / Referred By Referred To Procedures Contact Contact Authorized Specialty Pulmonary Disease Diagnoses Primary cancer of right lower lobe of lung Maryjane Torres, Divya Lubin Services / Pulmonology MD Martin MD Required [address] [place] [id number] Phone: Fax: Email: Email: [email or web address] Diagnostic Radiology (STAT) Status Reason Specialty Diagnoses / Referred By Referred To Procedures Contact Contact Authorized Radiology Diagnoses Primary cancer of right lower lobe of lung Maryjane Torres MD Procedures MR Brain with and without Contrast [address] [place] [address] Email: [email or web address] Reason for Visit Reason Comments Follow-up Encounter Details Date Type Department Care Team Description 03/11/2019 Office Visit [facility] Fritz Tipton, Primary cancer of ONCOLOGY right lower lobe of [address] lung (Primary Dx) [facility] [address] [place] [id number] [phone] Allergies Active Allergy Reactions Severity Noted Date Comments Adhesive Tape Itching, Rash Low 07/08/2015 Nitrofuran Derivatives Nausea And Vomiting, 07/08/2015 shakes Other (See Comments) Oxycodone-Acetaminophen Other (See Comments) 07/08/2015 "out of it" not with reality cannot remember much documented as of this encounter (statuses as of 03/19/2019) Medications Medication Sig Dispensed Refills Start Date End Date Status Votaw-3 Fatty Acids Take 1 tablet by 0 Active (OMEGA 3 PO) mouth daily. CRANBERRY PO Take 1 capsule 0 Active by mouth Two Times Daily. Multiple Vitamin Take 1 capsule 0 Active (MULTIVITAMIN) capsule by mouth daily. aspirin 81 MG tablet Take 81 mg by 0 Active mouth nightly Cholecalciferol (VITAMIN Take 1,000 mg by 0 Active D-3 PO) mouth daily ibuprofen (ADVIL,MOTRIN) Take 400 mg by 0 Active 200 MG tablet mouth nightly. estradiol (ESTRACE Using fingertip, 42.5 g 12 06/20/2016 Active VAGINAL) 0.1 MG/GM place pea-size vaginal cream amount in vagina nightly Additional information Patient not taking. Reported on 03/11/2019 9:42 AM Oxygen GAS Use as directed. 0 Active albuterol (PROAIR HFA) 108 Inhale 2 puffs into the 0 Active (90 Base) MCG/ACT inhaler lungs every 6 (six) hours Blood Glucose Monitoring Use as directed. Use as 1 each 0 03/21/2017 Active Suppl (FREESTYLE FREEDOM directed up to 8 times LITE) w/Device daily. E 11.65 KITIndications: Type 2 diabetes mellitus with hyperglycemia, with long-term current use of insulin insulin glargine (LANTUS Inject 40 units at 90 mL 1 05/13/2017 Active SOLOSTAR) 100 UNIT/ML breakfast and 48 units at penIndications: Type 2 bedtime. MDD 100 units diabetes mellitus with E11.65 hyperglycemia, with long-term current use of insulin Additional information Patient taking differently: 52 Units Daily Standard, Inject 30 units at breakfast . MDD 100 units E11.65-per pt, Reported on 01/12/2019 1:27 PM Fluticasone-Salmeterol (ADVAIR Inhale 1 puff into 0 Active DISKUS) 250-50 MCG/DOSE AEPB the lungs daily umeclidinium-vilanterol (ANORO Inhale 1 puff into 0 Active ELLIPTA) 62.5-25 MCG/INH inhaler the lungs daily Ascorbic Acid (VITAMIN C PO) Take by mouth daily 0 Active LACTOBACILLUS PO Take by mouth 0 Active FREESTYLE LITE test strip Use as directed to 600 each 1 01/06/2018 Active check blood glucose 6 times daily. Dx E11.65 Probiotic Product (PROBIOTIC Take by mouth daily 0 Active DAILY PO) acetaminophen, TYLENOL, tablet Take 650 mg by mouth 0 Active (MAPAP) 325 MG tablet every 6 (six) hours as needed for Pain trazodone (DESYREL) 50 MG tablet nightly 0 02/17/2018 Active ARNUITY ELLIPTA 200 MCG/ACT AEPB daily 0 05/07/2018 Active FLOVENT DISKUS 100 MCG/BLIST AEPB daily 0 04/30/2018 Active Insulin Pen Needle 31G X 8 MM Use as directed. 500 each 3 06/30/2018 Active MISC 5/day Misc. Devices (DURABLE MEDICAL Use as directed. DM shoes with 3 insoles 1 each 0 06/30/2018 Active EQUIPMENT SEE SIG) MISC DX: DM with peripheral Neuropathy Misc. Devices MISC Use as directed. Dx: Lymphedeam 2 each 5 07/30/2018 Active Rx: Farrow 4000 wrap, dispense 2 torsemide (DEMADEX) 20 MG tablet 2 tabs per day per 0 08/11/2018 Active pt pravastatin (PRAVACHOL) 20 MG 10 mg daily 0 09/17/2018 Active tablet insulin aspart (NOVOLOG FLEXPEN) Inject as needed 195 mL 1 11/13/2018 Active 100 UNIT/ML SOPN penIndications: daily per sliding Type 2 diabetes mellitus with scale. Max Daily hyperglycemia, with long-term Dose not to exceed current use of insulin 210 units inclusive of priming and titration. Dx code: E11.65 trospium (SANCTURA) 20 MG tablet Take 20 mg by mouth 0 Active Two Times Daily cephalexin (KEFLEX) 250 MG Take 1 capsule by 90 capsule 3 02/02/2019 Active capsule mouth daily Additional information Patient not taking. Reported on 03/11/2019 9:42 AM MYRBETRIQ 50 MG TB24 Take 1 tablet by mouth 90 tablet 3 02/02/2019 Active daily diphenhydrAMINE-APAP, sleep, Take 2 tablets by mouth 0 Active (TYLENOL PM EXTRA STRENGTH nightly PO) Potassium (POTASSIMIN Take 20 mg by mouth 0 Active PO)Indications: takes 1 tab Indications: takes 1 tab in AM and 2 tabs in PM in AM and 2 tabs in PM documented as of this encounter (statuses as of 03/19/2019) Active Problems Problem Noted Date Primary cancer [...] as of this encounter (statuses as of 03/19/2019) Resolved Problems Problem Noted Date Resolved Date Urinary tract infection 12/26/2017 documented as of this encounter (statuses as of 03/19/2019) Social History Tobacco Use Types Packs/Day Years Used Date Former Smoker Cigarettes 2.5 40 Quit: 04/15/1989 Smokeless Tobacco: Never Used Alcohol Use Drinks/Week oz/Week Comments No 0 Standard drinks or equivalent 0.0 Sex Assigned at Date Recorded Female Job Start Date Occupation Industry Not on file Not on file Not on file Travel History Travel Start Travel End No recent travel history available. documented as of this encounter Last Filed Vital Signs Vital Sign Reading Time Taken Comments Blood Pressure 102/69 03/11/2019 9:37 AM EST Pulse 101 03/11/2019 9:37 AM EST Temperature - - Respiratory Rate 20 03/11/2019 9:37 AM EST Oxygen Saturation 92% 03/11/2019 9:37 AM EST Inhaled Oxygen - - Concentration Weight 86.2 kg (190 lb) 03/11/2019 9:37 AM per patient weight at EST Dr. Parekh's office yesterday Height - - Body Mass Index 37.11 02/02/2019 1:32 PM EDT documented in this encounter Progress Notes Maryjane Torres MD - 03/11/2019 9:30 AM EST Radiation Oncology Follow-up Visit Report Subjective: Diagnosis and Stage: 1. Lung, LLL, adenocaricnoma, [id number], stage IA3 2. Lung, RLL, squamous cell carcinoma, [id number], stage IA2 Treatment: Radiation: SBRT to RLL and LLL, 60 Gy in 5 fractions completed 12/24/17 Performance Status: (2) Ambulatory and capable of self care, unable to carry out work activity, up and about > 50% or waking hours HPI: Celine Anand is a 83 y.o. 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 She has a 100 pack year smoking history; quit in 1993. She has significant COPD on 4 liters at rest and 6 liters with exertion. She was undergoing surveillance CT after SBRT whenshe was found to have an enlarging right upper lobe nodule in January 2019. PET/CT showed avidity inthe right upper lobe mass associated with pretracheal and subcarinal adenopathy. She returns for follow-up to review her most recent scan. Overall she is doing alright and is accompanied by her and daughter to today's appointment. She has not had any significant interval changes in her health since being seen last. Medications: Current Outpatient Medications Medication Sig Dispense Refill acetaminophen, TYLENOL, tablet (MAPAP) 325 MG tablet Take 650 mg by mouth every 6 (six) hoursas needed for Pain albuterol (PROAIR HFA) 108 (90 Base) MCG/ACT inhaler Inhale 2 puffs into the lungs every 6 (six) hours ARNUITY ELLIPTA 200 MCG/ACT AEPB daily Ascorbic Acid (VITAMIN C PO) Take by mouth daily aspirin 81 MG tablet Take 81 mg by mouth nightly Blood Glucose Monitoring Suppl (FREESTYLE FREEDOM LITE) w/Device KIT Use as directed. Use as directed up to 8 times daily. E 11.65 1 each 0 cephalexin (KEFLEX) 250 MG capsule Take 1 capsule by mouth daily 90 capsule 3 Cholecalciferol (VITAMIN D-3 PO) Take 1,000 mg by mouth daily CRANBERRY PO Take 1 capsule by mouth Two Times Daily. estradiol (ESTRACE VAGINAL) 0.1 MG/GM vaginal cream Using fingertip, place pea-size amount invagina nightly (Patient taking differently: daily as needed Using fingertip, place pea-size amount in vagina nightly) 42.5 g 12 FLOVENT DISKUS 100 MCG/BLIST AEPB daily Fluticasone-Salmeterol (ADVAIR DISKUS) 250-50 MCG/DOSE AEPB Inhale 1 puff into the lungs daily FREESTYLE LITE test strip Use as directed to check blood glucose 6 times daily. Dx E11.65 600each 1 ibuprofen (ADVIL,MOTRIN) 200 MG tablet Take 400 mg by mouth nightly. insulin aspart (NOVOLOG FLEXPEN) 100 UNIT/ML SOPN pen Inject as needed daily per sliding scale. Max Daily Dose not to exceed 210 units inclusive of priming and titration. Dx code: E11.65 195 mL 1 insulin glargine (LANTUS SOLOSTAR) 100 UNIT/ML pen Inject 40 units at breakfast and 48 units at bedtime. MDD 100 units E11.65 (Patient taking differently: 52 Units daily Inject 30 units at breakfast . MDD 100 units E11.65-per pt) 90 mL 1 Insulin Pen Needle 31G X 8 MM MISC Use as directed. 5/day 500 each 3 LACTOBACILLUS PO Take by mouth Misc. Devices (DURABLE MEDICAL EQUIPMENT SEE SIG) MISC Use as directed. DM shoes with 3 insoles DX: DM with peripheral Neuropathy (Patient not taking: Use as directed. Reported on 02/02/2019) 1 each 0 Misc. Devices MISC Use as directed. Dx: Lymphedeam Rx: Farrow 4000 wrap, dispense 2 (Patient not taking: Use as directed. Reported on 02/02/2019) 2 each 5 Multiple Vitamin (MULTIVITAMIN) capsule Take 1 capsule by mouth daily. MYRBETRIQ 50 MG TB24 Take 1 tablet by mouth daily 90 tablet 3 Votaw-3 Fatty Acids (OMEGA 3 PO) Take 1 tablet by mouth daily. Oxygen GAS Use as directed. pravastatin (PRAVACHOL) 20 MG tablet 10 mg daily Probiotic Product (PROBIOTIC DAILY PO) Take by mouth daily torsemide (DEMADEX) 20 MG tablet 2 tabs per day per pt trazodone (DESYREL) 50 MG tablet nightly trospium (SANCTURA) 20 MG tablet Take 20 mg by mouth Two Times Daily umeclidinium-vilanterol (ANORO ELLIPTA) 62.5-25 MCG/INH inhaler Inhale 1 puff into the lungs daily No current facility-administered medications for this visit. Allergies: Nitrofuran derivatives; Percocet [oxycodone-acetaminophen]; and Adhesive tape Patient's medications, allergies, past medical, surgical, social and family histories were reviewed and updated as appropriate. Objective: Vitals - 1 value per visit 01/12/2019 01/20/2019 02/02/2019 SYSTOLIC - 100 96 DIASTOLIC - 55 51 PULSE - 101 104 TEMPERATURE - 97.7 97.5 RESPIRATIONS - 24 18 Weight (kg) 96.9 kg 97.886 kg 97.614 kg HEIGHT - 152.4 cm 152.4 cm SPO2 - 90 90 BODY MASS INDEX 41.39 kg/m2 42.15 kg/m2 42.03 kg/m2 PAIN SCALE - SCORE - 0 0 PAIN SCALE - LOCATION - - - PAIN SCALE - COMMENT - - - Wt Readings from Last 3 Encounters: 02/02/19 97.6 kg (215 lb 3.2 oz) 01/20/19 97.9 kg (215 lb 12.8 oz) 01/12/19 96.9 kg (213 lb 10 oz) Physical Examination General: appears stated age in no acute distress seated in wheelchair with nasal cannula in place Head: normocephalic and atraumatic Eyes: pupils equal and reactive to light and accomodation, extraocular movements intact Ears/Nose/Throat: moist mucous membranes, tongue midline Neck: trachea is midline, no thyromegaly Pulmonary: no increased work of breathing or audible wheezing Skin/MSK: skin warm and dry Neurological: cranial nerves II-XII grossly intact Pyschiatric: affect and mood congruent. Judgement and insight appear intact Prior Treatment: Diagnostic Test Results: 02/19/2019 PET/CT: IMPRESSION: 1. New FDG avid right upper lobe lung mass and pretracheal and subcarinal lymph nodes, may represent new metastatic disease or new primary lesion. 2. Right lower lobe and left upper lobe airspace opacity with FDG activity may represent postradiation inflammatory changes. 3. Stable in size of cystic structure in the pelvis with borderline fluid attenuation may representadnexal cyst. 4. Additional findings as described above. Assessment & Plan: Celine Anand is a 83 y.o. female with synchronous NSCLC treated with SBRT completed December 2017. We reviewed the NCCN guidelines and had a discussion regarding our recommendations for management. We reviewed the most recent PET/CT which shows avidity within the right upper lobe mass and the mediastinum. We discussed that this is worrisome for a new primary malignancy. We explained that the management of above would be to complete staging work-up with an MRI and evaluation/biopsy of the mediastinum. We discussed that treatment for locally advanced disease would involve a combination of chemotherapy and radiation followed by immunotherapy. We explained that she will need to meet with medical oncology. We discussed having her case presented at our [facility] conference to which she is agreeable and facilitate her care from there. We would be happy to answer any questions or concerns in the interim. ADDENDUM: Case was discussed at [facility] ~ Patient to be seen by medical oncology next Saturday at [facility], MRI to complete imaging, and EBUS for evaluation of the mediastinum. The patient was seen, examined, and counseled under the supervision of attending physician Dr. Fritz Tipton MD. Maryjane Torres MD Radiation Oncology Resident, PGY-IV I saw and evaluated Celine Anand. The case was discussed with the resident and I agree with thefindings documented in the resident's note. documented in this encounter Plan of Treatment Date Type Specialty Care Team Description 03/20/2019 Hospital Encounter Divya Lubin MD [address] [facility] 2nd [address] [place] [address] [phone] 03/24/2019 Appointment Radiology 03/25/2019 Office Visit Hematology and Michael Garcia NP Oncology [address] [place] [address] [phone] 04/13/2019 Office Visit Endocrinology Tiffanie Sagastume PA [address] [place] [address] 04/13/2019 Office Visit Endocrinology Gregor Lucio DPM [address] [place] [address] 07/13/2019 Office Visit Endocrinology Gregor Lucio DPM [address] [place] [address] 07/13/2019 Office Visit Endocrinology Kory Conrad MD [address] [place] [address] 07/29/2019 Appointment Radiology 08/03/2019 Office Visit Urology Johana Jeronimo MD [address] [place] [address] 10/13/2019 Office Visit Endocrinology Preethi Felipe NP [address] [place] [address] 10/13/2019 Office Visit Endocrinology Gregor Lucio DPM [address] [place], [place] [id number] Name Type Priority Associated Diagnoses Order Schedule MR Brain with and Imaging STAT Primary cancer of right Expected: 03/12/2019 , without Contrast lower lobe of lung Expires: 06/12/2020 Name Type Priority Associated Order Schedule Diagnoses Referral to Outpatient Referral Routine Primary cancer of Ordered: Pulmonology right lower lobe of 03/12/2019 lung Health Maintenance Due Date Last Done Comments [...] this topic documented as of this encounter Results Not on filedocumented in this encounter Visit Diagnoses Diagnosis Primary cancer of right lower lobe of lung - Primary documented in this encounter
[2019-03-23 14:39] VITALS: BP 108/67
== END 2019-03-23 14:52 | disposition home or self-care (01) ==
LOC: UCCORT 13:52
DX: L03.012 Cellulitis of left finger (principal); E11.9 Type 2 diabetes mellitus without complications; I10 Essential (primary) hypertension; Z88.5 Allergy status to narcotic agent; Z88.8 Allergy status to other drugs, medicaments and biological substances; Z91.09 Other allergy status, other than to drugs and biological substances; Z79.4 Long term (current) use of insulin; Z79.899 Other long term (current) drug therapy; Z87.891 Personal history of nicotine dependence
CPT/HCPCS: 99212; G0463